=== PATIENT | male | born 1940 | race Caucasian/White ===

== ENCOUNTER 2019-01-14 14:24 | Observation (INO) | payer MEDICARE, OTHER ==
[2019-01-14] MEDS ORDERED: Sodium Chloride 0.9% 1000 ML 1,000 ML IV STA (14:31)
[2019-01-14] MEDS ORDERED: Sodium Chloride 0.9% 1000 ML 1,000 ML ONE (14:38)
--- NOTE | 2019-01-14 14:41 | ERPHSYRPT ---
- History of Present Illness Time Seen by Provider: 01/14/19 14:30 Historian: patient Exam Limitations: no limitations Patient Subjective Stated Complaint: Pt states "I have had diarrhea since monday and I went to [facility] and they told me to come over here." Triage Nursing Assessment: Pt presented alert and oriented X 3, skin pwd. Pt ambulates with an upright steady gait, able to speak in clear full sentences. PT in no apparent respiratory distress. Physician History: Patient has had 6-8 episodes of watery diarrhea for the past two days with 3 further episodes of diarrhea today. ppatient denies nausea vomiting, denies any recent antibiotic use, denies any recent travel, denies any suspicious consumption of foods or beverages that cause similar symptoms to other people, and denies any recent hospitalizations. Patient was referred to the emergency room from a local [facility] clinic due to having a drop in his blood pressure while having orthostatics performed. Timing/Duration: day(s) (2) Activities at Onset: none Quality: cramping Abdominal Pain Onset Location: other (no abdominal pain) Severity of Pain-Max: none Severity of Pain-Current: none Modifying Factors: Improves With: nothing Associated Symptoms: diarrhea, weakness (generalized), No back, No chest pain, No diaphoresis, No fever/chills, No fatigue, No headache, No heartburn, No loss of appetite, No nausea, No neck pain, No rash, No shortness of breath, No syncope, No testicular pain, No vomiting Previous symptoms: no prior history, no recent treatment Allergies/Adverse Reactions: No Known Drug Allergies Allergy (Verified 01/14/19 14:36) Home Medications: Atorvastatin Calcium [Lipitor] 20 mg PO DAILY 10/22/15 [History] Hx Tetanus, Diphtheria Vaccination/Date Given: Yes Hx Influenza Vaccination/Date Given: Yes Hx Pneumococcal Vaccination/Date Given: No Immunizations Up to Date: Yes - Review of Systems Constitutional: No Fever, No Chills Eyes: No Eye Pain, No Eye Redness Ears, Nose, & Throat: No Mouth Swelling, No Throat Pain, No Throat Swelling Respiratory: No Cough, No Dyspnea Cardiac: No Chest Pain, No Edema, No Syncope Abdominal/Gastrointestinal: Diarrhea, No Abdominal Pain, No Nausea, No Vomiting , No Hematemesis, No Hematochezia, No Melena Genitourinary Symptoms: No Dysuria, No Hematuria, No Urinary Retention, No Flank Pain Musculoskeletal: No Back Pain, No Neck Pain, No Myalgias Skin: No Rash Neurological: No Dizziness, No Focal Weakness, No Headache, No Parasthesia, No Sensory Changes, No Tremors Psychological: No Symptoms Endocrine: No Excessive Sweating Hematologic/Lymphatic: No Easy Bleeding, No Easy Bruising All Other Systems: Reviewed and Negative - Past Medical History Pertinent Past Medical History: Yes Cardiac History: Hypertension Other Medical History: hx colon ca - Past Surgical History Past Surgical History: Yes (colon CA) Gastrointestinal: Colon Resection - Social History Smoking Status: Never smoker Exposure to second hand smoke: No Drug Use: none Patient Lives Alone: No - Nursing Vital Signs Nursing Vital Signs: Initial Vital Signs Temperature 97.8 F 01/14/19 14:30 Pulse Rate 78 01/14/19 14:30 Respiratory Rate 16 01/14/19 14:30 Blood Pressure 136/76 01/14/19 14:30 O2 Sat by Pulse Oximetry 98 01/14/19 14:30 Pain Scale Pain Intensity 0 - Physical Exam General Appearance: no apparent distress, alert Eye Exam: PERRL/EOMI, eyes nml inspection, No scleral icterus, No pale conjunctivae Ears, Nose, Throat Exam: normal ENT inspection, pharynx normal, moist mucous membranes Neck Exam: normal inspection, non-tender, supple, full range of motion Respiratory Exam: normal breath sounds, lungs clear, airway intact, No respiratory distress, No diminished breath sounds, No accessory muscle use, No crackles/rales, No rhonchi, No wheezing Cardiovascular Exam: regular rate/rhythm, normal heart sounds, normal peripheral pulses, capillary refill <2 sec Gastrointestinal/Abdomen Exam: soft, normal bowel sounds, No tenderness, No mass , No guarding, No pulsatile mass, No rebound Back Exam: normal inspection, normal range of motion, No CVA tenderness, No vertebral tenderness Extremity Exam: normal inspection, normal range of motion, pelvis stable Neurologic Exam: alert, oriented x 3, cooperative, rn lactation consultant II-XII nml as tested, normal mood/affect, nml cerebellar function, sensation nml, No motor deficits Skin Exam: normal color, warm, dry SpO2 Interpretation: normal SpO2: 98 O2 Delivery: Room Air - Course Nursing assessment & vital signs reviewed: Yes Ordered Tests: Active Orders 24 hr Category Date Time Status IV Insertion STAT Care 12/09/19 14:30 Active NPO (ED) STAT Care 01/14/19 14:30 Active Orthostatic Vital Signs STAT Care 01/14/19 14:31 Active AMYLASE Stat Lab 01/14/19 14:50 Completed CBC W DIFF Stat Lab 01/14/19 14:50 Completed CMP Stat Lab 01/14/19 14:50 Completed LIPASE Stat Lab 01/14/19 14:50 Completed Lactic Acid Stat Lab 01/14/19 14:50 Completed MAG [MAGNESIUM] Stat Lab 01/14/19 14:50 Completed UA W/RFX UR CULTURE Stat Lab 01/14/19 16:31 Ordered Medication Summary Discontinued Medications Generic Name Dose Route Start Last Admin Trade Name Freq PRN Reason Stop Dose Admin Sodium Chloride 1,000 mls @ 999 mls/hr 01/14/19 14:31 01/14/19 15:42 Sodium Chloride 0.9% 1000 Ml IV 01/14/19 15:31 Infused .Q1H1M STA Infusion Sodium Chloride Confirm 01/14/19 14:38 Sodium Chloride 0.9% 1000 Ml Administered 01/14/19 14:39 Dose 1,000 mls @ ud .ROUTE .STK-MED ONE Lab/Rad Data: Laboratory Result Diagrams 01/14/19 14:50 01/14/19 14:50 Laboratory Results 01/14/19 01/14/19 01/14/19 Range/Units 14:50 14:50 14:50 WBC (4.0-10.5) K/mm3 RBC (4.1-5.6) M/mm3 Hgb (12.5-18.0) gm/dl Hct (42-50) % MCV (78-100) fl MCH (26-32) pg MCHC (32-36) g/dl RDW (11.5-14.0) % Plt Count (150-450) K/mm3 MPV (6-9.5) fl Gran % (36.0-66.0) % Eos # (Auto) (0-0.5) Absolute Lymphs (auto) (1.0-4.6) Absolute Monos (auto) (0.0-1.3) Lymphocytes % (24.0-44.0) % Monocytes % (0.0-12.0) % Eosinophils % (0.00-5.0) % Basophils % (0.0-0.4) % Absolute Granulocytes (1.4-6.9) Basophils # (0-0.4) Sodium 141 (137-145) mmol/L Potassium 4.1 (3.5-5.1) mmol/L Chloride 106 (98-107) mmol/L Carbon Dioxide 17 L (22-30) mmol/L Anion Gap 21.9 H (5-15) MEQ/L BUN 60 H (9-20) mg/dL Creatinine 3.09 H (0.66-1.25) mg/dL Estimated GFR 20.8 ML/MIN Glucose 138 H (74-106) mg/dL Lactic Acid 1.6 (0.4-2.0) Calcium 8.7 (8.4-10.2) mg/dL Magnesium 2.3 (1.6-2.3) mg/dL Total Bilirubin 0.50 (0.2-1.3) mg/dL AST 52 (17-59) U/L ALT 36 (0-50) U/L Alkaline Phosphatase 49 (38-126) U/L Serum Total Protein 8.8 H (6.3-8.2) g/dL Albumin 4.9 (3.5-5.0) g/dL Amylase 70 (30-110) U/L Lipase 102 (23-300) U/L 01/14/19 Range/Units 14:50 WBC 13.2 H (4.0-10.5) K/mm3 RBC 5.42 (4.1-5.6) M/mm3 Hgb 17.0 (12.5-18.0) gm/dl Hct 50.4 H (42-50) % MCV 93.0 (78-100) fl MCH 31.4 (26-32) pg MCHC 33.7 (32-36) g/dl RDW 14.2 H (11.5-14.0) % Plt Count 236 (150-450) K/mm3 MPV 9.8 H (6-9.5) fl Gran % 69.5 H (36.0-66.0) % Eos # (Auto) 0.05 (0-0.5) Absolute Lymphs (auto) 2.25 (1.0-4.6) Absolute Monos (auto) 1.69 H (0.0-1.3) Lymphocytes % 17.0 L (24.0-44.0) % Monocytes % 12.8 H (0.0-12.0) % Eosinophils % 0.4 (0.00-5.0) % Basophils % 0.3 (0.0-0.4) % Absolute Granulocytes 9.21 H (1.4-6.9) Basophils # 0.04 (0-0.4) Sodium (137-145) mmol/L Potassium (3.5-5.1) mmol/L Chloride (98-107) mmol/L Carbon Dioxide (22-30) mmol/L Anion Gap (5-15) MEQ/L BUN (9-20) mg/dL Creatinine (0.66-1.25) mg/dL Estimated GFR ML/MIN Glucose (74-106) mg/dL Lactic Acid (0.4-2.0) Calcium (8.4-10.2) mg/dL Magnesium (1.6-2.3) mg/dL Total Bilirubin (0.2-1.3) mg/dL AST (17-59) U/L ALT (0-50) U/L Alkaline Phosphatase (38-126) U/L Serum Total Protein (6.3-8.2) g/dL Albumin (3.5-5.0) g/dL Amylase (30-110) U/L Lipase (23-300) U/L - Progress Progress: improved Progress Note: 01/14/19 16:26 Patient feeling better after IV fluids. Patient has no pain on repeat abdominal examination. Discussed with : Lio (spoke with Dr Lee @ 16:[address] Lee accepted the patient for observation.) Counseled pt/family regarding: lab results, diagnosis, need for follow-up - Departure Departure Disposition: Observation (to [facility] telemetry) Clinical Impression: Acute renal insufficiency, Orthostatic hypotension Diarrhea Qualifiers: Diarrhea type: unspecified type Qualified Code(s): R19.7 - Diarrhea, unspecified Hypertension Qualifiers: Hypertension type: essential hypertension Qualified Code(s): I10 - Essential ( primary) hypertension Condition: Fair Critical Care Time: No Referrals: PUJA BRANTLEY [Primary Care Provider] -
[2019-01-14 15:01] LABS: Absolute Neutrophil Ct (ANC) 9.21 (1.4-6.9); BASOPHIL % 0.3 % (0.0-0.4); Basophil (Absolute #) 0.04 (0-0.4); Eosinophil % 0.4 % (0.00-5.0); Eosinophil (Absolute #) 0.05 (0-0.5); Hematocrit 50.4 % (42-50); Lymphocyte (Absolute #) 2.25 (1.0-4.6); Mean Corpuscular Hemoglobin 31.4 pg (26-32); Mean Corpuscular Hgb Concent. 33.7 g/dl (32-36); Mean Platelet Volume 9.8 fl (6-9.5); Monocyte (Absolute #) 1.69 (0.0-1.3); Monocytes % 12.8 % (0.0-12.0); Neutrophil % 69.5 % (36.0-66.0); Platelet Count 236 K/mm3 (150-450); Red Blood Count 5.42 M/mm3 (4.1-5.6); Red Cell Distribution Width 14.2 % (11.5-14.0); White Blood Count 13.2 K/mm3 (4.0-10.5)
[2019-01-14 15:19] LABS: ALBUMIN 4.9 g/dL (3.5-5.0); ANION GAP 21.9 MEQ/L (5-15); BILIRUBIN,TOTAL 0.5 mg/dL (0.2-1.3); Calcium 8.7 mg/dL (8.4-10.2); Creatinine 1 3.09 mg/dL (0.66-1.25); Potassium 4.1 mmol/L (3.5-5.1); Total Protein 8.8 g/dL (6.3-8.2)
[2019-01-14 16:50] LABS: Appearance CLOUDY (CLEAR); Bacteria RARE /HPF (NEGATIVE); Bilirubin NEGATIVE (NEGATIVE); Blood NEGATIVE Ery/ul (0-5); Epithelial Cells RARE /HPF (FEW); Glucose NEGATIVE (NEGATIVE); Hyaline Casts 26-50 /LPF (0-2); Ketones NEGATIVE (NEGATIVE); Leukocyte Esterase NEGATIVE (NEGATIVE); Mucus MANY /HPF (NEGATIVE); Nitrite NEGATIVE (NEGATIVE); Protein,Urine Dip 30 (Negative); RBC 0-2 /HPF (0-2); Specific Gravity 1.023 (1.005-1.025); Urobilinogen NEGATIVE mg/dL (0-1)
[2019-01-14] MEDS ORDERED: TYLENOL 325 MG PO PRN (17:29)
[2019-01-14] MEDS: Sodium Chloride 0.9% 1000 ML 1,000 ML IV SCH (19:42)
[2019-01-14] MEDS ORDERED: COREG 12.5 MG PO ONE (22:00)
[2019-01-14 22:44] LABS: Adenovirus F 40/41 NEGATIVE (NEGATIVE); Astrovirus NEGATIVE (NEGATIVE); C. Difficile Organism NEGATIVE (NEGATIVE); Campylobacter NEGATIVE (NEGATIVE); Cryptosporidium NEGATIVE (NEGATIVE); Cyclospora cayentanensis NEGATIVE (NEGATIVE); Entamoeaba histolytica NEGATIVE (NEGATIVE); Enteroaggregative E.coli NEGATIVE (NEGATIVE); Enteropathogenic E.coli NEGATIVE (NEGATIVE); Enterotoxigenic E.coli NEGATIVE (NEGATIVE); Giardia lamblia NEGATIVE (NEGATIVE); Norovirus GI/GII POSITIVE (NEGATIVE); Plesiomonas shigelloides NEGATIVE (NEGATIVE); Rotavirus A NEGATIVE (NEGATIVE); Salmonella NEGATIVE (NEGATIVE); Sapovirus NEGATIVE (NEGATIVE); Shiga-like toxin prod.E.coli NEGATIVE (NEGATIVE); Vibrio NEGATIVE (NEGATIVE); Vibrio cholerae NEGATIVE (NEGATIVE); Yersinia enterocolitica NEGATIVE (NEGATIVE)
[2019-01-14] MEDS: Pepcid 20 MG PO SCH (22:56)
[2019-01-15] MEDS: Sodium Chloride 0.9% 1000 ML 1,000 ML IV SCH ×4 (02:13→23:19)
[2019-01-15 05:30] LABS: Calcium 7.5 mg/dL (8.4-10.2); Creatinine 1 1.86 mg/dL (0.66-1.25); Potassium 3.5 mmol/L (3.5-5.1)
--- NOTE | 2019-01-15 08:40 | PCM.HP ---
History of Present Illness - Chief Complaint Chief Complaint: Acute Renal Insufficiency, Orthostatic Hypotension, Diarrhea History of Present Illness: is a 78 year old male pt of Dr. Wills in [place] with hx HTN who was admitted through ER with diarrhea and dehydration. He became ill about 3d ago, having stools 6-8x/d. Denies fever or vomiting. He went to and was orthostatic so was sent to ER. Was found to have acute renal failure (no hx renal issues that he is aware of) and dehydration so was admitted for IV fluids. He denies bloody stools. did have some black stools but says he took Kaopectate. The color has since cleared. Yesterday he had about 6 stools, he thinks less than he was having. His appetite was poor but has returned. He was not urinating at home but has had 2 good urination here recently. - Review of Systems Abdominal/Gastrointestinal: Diarrhea, Appetite Changes Psychological: No Anxiety, No Depression, No Suicidal Ideations All Other Systems: Reviewed and Negative Medications & Allergies Home Medications: Home Medication List Atorvastatin Calcium [Lipitor] 20 mg PO HS 10/22/15 [History Confirmed 01/14/19] Amlodipine Besylate 5 mg [Norvasc 5 mg] 5 mg PO DAILY 01/14/19 [History Confirmed 01/14/19] Carvedilol 12.5 mg PO BREAKFAST 01/14/19 [History Confirmed 01/14/19] Carvedilol 25 mg PO HS 01/14/19 [History Confirmed 01/14/19] Cholecalciferol (Vitamin D3) [Vitamin D3] 50,000 unit PO WEEKLY 01/14/19 [ History Confirmed 01/14/19] Fenofibrate Nanocrystallized [Fenofibrate] 145 mg PO DAILY 01/14/19 [History Confirmed 01/14/19] Irbesartan 300 mg PO DAILY 01/14/19 [History Confirmed 01/14/19] Levothyroxine Sodium 50 Mcg [Synthroid 50 Mcg] 50 mcg PO 0600 01/14/19 [ History Confirmed 01/14/19] Allergies/Adverse Reactions: Allergies Allergy/AdvReac Type Severity Reaction Status Date / Time No Known Drug Allergies Allergy Verified 01/14/19 14:36 - Past Medical History Past Medical History: Yes Cardiac History: Hypertension Comment: hx colon ca - Past Surgical History Past Surgical History: Yes (colon CA) GI Surgical History: Colon Resection - Social History Smoking Status: Never smoker Exposure to second hand smoke: No Alcohol: None Drug Use: none - Physical Exam Vital Signs: Vital Signs - 24 hr Temp Pulse Resp BP Pulse Ox 01/15/19 04:00 98.6 F 65 18 116/56 95 01/15/19 00:00 98.2 F 80 20 128/72 93 L 01/14/19 20:00 98 F 79 18 133/62 94 L 01/14/19 17:29 97.6 F 77 18 164/71 96 01/14/19 16:51 98.6 F 72 16 149/70 96 01/14/19 16:38 98 01/14/19 15:52 73 18 133/62 98 01/14/19 15:23 72 16 137/67 97 01/14/19 14:30 97.8 F 78 16 136/76 98 General Appearance: no apparent distress, alert Neurologic Exam: oriented x 3, cooperative Eye Exam: eyes nml inspection Ears, Nose, Throat Exam: moist mucous membranes Neck Exam: normal inspection Respiratory Exam: normal breath sounds, lungs clear, No crackles/rales, No rhonchi, No wheezing Cardiovascular Exam: regular rate/rhythm, normal heart sounds, No murmur Gastrointestinal/Abdomen Exam: soft, normal bowel sounds, No tenderness, No distention, No mass, No guarding, No rebound Back Exam: normal inspection, No rash Extremity Exam: normal inspection, No pedal edema, No swelling Skin Exam: normal color, warm, dry, No rash Results - Labs Lab/Micro Results: Lab Results-Last 24 Hours 01/14/19 01/14/19 01/14/19 Range/Units 14:50 14:50 14:50 WBC 13.2 H (4.0-10.5) K/mm3 RBC 5.42 (4.1-5.6) M/mm3 Hgb 17.0 (12.5-18.0) gm/dl Hct 50.4 H (42-50) % MCV 93.0 (78-100) fl MCH 31.4 (26-32) pg MCHC 33.7 (32-36) g/dl RDW 14.2 H (11.5-14.0) % Plt Count 236 (150-450) K/mm3 MPV 9.8 H (6-9.5) fl Gran % 69.5 H (36.0-66.0) % Eos # (Auto) 0.05 (0-0.5) Absolute Lymphs (auto) 2.25 (1.0-4.6) Absolute Monos (auto) 1.69 H (0.0-1.3) Lymphocytes % 17.0 L (24.0-44.0) % Monocytes % 12.8 H (0.0-12.0) % Eosinophils % 0.4 (0.00-5.0) % Basophils % 0.3 (0.0-0.4) % Absolute Granulocytes 9.21 H (1.4-6.9) Basophils # 0.04 (0-0.4) Sodium 141 (137-145) mmol/L Potassium 4.1 (3.5-5.1) mmol/L Chloride 106 (98-107) mmol/L Carbon Dioxide 17 L (22-30) mmol/L Anion Gap 21.9 H (5-15) MEQ/L BUN 60 H (9-20) mg/dL Creatinine 3.09 H (0.66-1.25) mg/dL Estimated GFR 20.8 ML/MIN Glucose 138 H (74-106) mg/dL Lactic Acid 1.6 (0.4-2.0) Calcium 8.7 (8.4-10.2) mg/dL Magnesium (1.6-2.3) mg/dL Total Bilirubin 0.50 (0.2-1.3) mg/dL AST 52 (17-59) U/L ALT 36 (0-50) U/L Alkaline Phosphatase 49 (38-126) U/L Serum Total Protein 8.8 H (6.3-8.2) g/dL Albumin 4.9 (3.5-5.0) g/dL Amylase 70 (30-110) U/L Lipase 102 (23-300) U/L Urine Color (YELLOW) Urine Appearance (CLEAR) Urine pH (5-6) Ur Specific [place] (1.005-1.025) Urine Protein (Negative) Urine Ketones (NEGATIVE) Urine Blood (0-5) Derek/ul Urine Nitrite (NEGATIVE) Urine Bilirubin (NEGATIVE) Urine Urobilinogen (0-1) mg/dL Ur Leukocyte Esterase (NEGATIVE) Urine WBC (Auto) (0-5) /HPF Urine RBC (Auto) (0-2) /HPF U Hyaline Cast (Auto) (0-2) /LPF U Epithel Cells (Auto) (FEW) /HPF Urine Bacteria (Auto) (NEGATIVE) /HPF Urine Mucus (Auto) (NEGATIVE) /HPF Urine Culture Reflexed (NO) Urine Glucose (NEGATIVE) mg/dL Stl C. cayetanensis PCR (NEGATIVE) Stl Adenov F 40/41 PCR (NEGATIVE) Stool Astrovirus (PCR) (NEGATIVE) Stool Cryptosporidium PCR (NEGATIVE) Stool EPEC (PCR) (NEGATIVE) Stool EAEC (PCR) (NEGATIVE) Stl E. histolytica PCR (NEGATIVE) Stl P. shigelloides PCR (NEGATIVE) Stool Sapovirus (PCR) (NEGATIVE) St Y.enterocolitica PCR (NEGATIVE) Stool Vibrio (PCR) (NEGATIVE) Stl Vibrio cholerae PCR (NEGATIVE) Stl Norovirus GI/GII PCR (NEGATIVE) Campylobacter (PCR) (NEGATIVE) C. difficile (PCR) (NEGATIVE) Enterotoxigenic E. coli (NEGATIVE) E.coli Shiga Toxins (NEGATIVE) Giardia lamblia (NEGATIVE) Rotavirus A (PCR) (NEGATIVE) Salmonella (PCR) (NEGATIVE) Shigella (PCR) (NEGATIVE) 01/14/19 01/14/19 01/14/19 Range/Units 14:50 16:31 20:12 WBC (4.0-10.5) K/mm3 RBC (4.1-5.6) M/mm3 Hgb (12.5-18.0) gm/dl Hct (42-50) % MCV (78-100) fl MCH (26-32) pg MCHC (32-36) g/dl RDW (11.5-14.0) % Plt Count (150-450) K/mm3 MPV (6-9.5) fl Gran % (36.0-66.0) % Eos # (Auto) (0-0.5) Absolute Lymphs (auto) (1.0-4.6) Absolute Monos (auto) (0.0-1.3) Lymphocytes % (24.0-44.0) % Monocytes % (0.0-12.0) % Eosinophils % (0.00-5.0) % Basophils % (0.0-0.4) % Absolute Granulocytes (1.4-6.9) Basophils # (0-0.4) Sodium (137-145) mmol/L Potassium (3.5-5.1) mmol/L Chloride (98-107) mmol/L Carbon Dioxide (22-30) mmol/L Anion Gap (5-15) MEQ/L BUN (9-20) mg/dL Creatinine (0.66-1.25) mg/dL Estimated GFR ML/MIN Glucose (74-106) mg/dL Lactic Acid (0.4-2.0) Calcium (8.4-10.2) mg/dL Magnesium 2.3 (1.6-2.3) mg/dL Total Bilirubin (0.2-1.3) mg/dL AST (17-59) U/L ALT (0-50) U/L Alkaline Phosphatase (38-126) U/L Serum Total Protein (6.3-8.2) g/dL Albumin (3.5-5.0) g/dL Amylase (30-110) U/L Lipase (23-300) U/L Urine Color YELLOW (YELLOW) Urine Appearance CLOUDY (CLEAR) Urine pH 5.0 (5-6) Ur Specific [place] 1.023 (1.005-1.025) Urine Protein 30 (Negative) Urine Ketones NEGATIVE (NEGATIVE) Urine Blood NEGATIVE (0-5) Derek/ul Urine Nitrite NEGATIVE (NEGATIVE) Urine Bilirubin NEGATIVE (NEGATIVE) Urine Urobilinogen NEGATIVE (0-1) mg/dL Ur Leukocyte Esterase NEGATIVE (NEGATIVE) Urine WBC (Auto) 6-10 (0-5) /HPF Urine RBC (Auto) 0-2 (0-2) /HPF U Hyaline Cast (Auto) 26-50 (0-2) /LPF U Epithel Cells (Auto) RARE (FEW) /HPF Urine Bacteria (Auto) RARE (NEGATIVE) /HPF Urine Mucus (Auto) MANY (NEGATIVE) /HPF Urine Culture Reflexed NO (NO) Urine Glucose NEGATIVE (NEGATIVE) mg/dL Stl C. cayetanensis PCR NEGATIVE (NEGATIVE) Stl Adenov F 40/41 PCR NEGATIVE (NEGATIVE) Stool Astrovirus (PCR) NEGATIVE (NEGATIVE) Stool Cryptosporidium PCR NEGATIVE (NEGATIVE) Stool EPEC (PCR) NEGATIVE (NEGATIVE) Stool EAEC (PCR) NEGATIVE (NEGATIVE) Stl E. histolytica PCR NEGATIVE (NEGATIVE) Stl P. shigelloides PCR NEGATIVE (NEGATIVE) Stool Sapovirus (PCR) NEGATIVE (NEGATIVE) St Y.enterocolitica PCR NEGATIVE (NEGATIVE) Stool Vibrio (PCR) NEGATIVE (NEGATIVE) Stl Vibrio cholerae PCR NEGATIVE (NEGATIVE) Stl Norovirus GI/GII PCR POSITIVE A (NEGATIVE) Campylobacter (PCR) NEGATIVE (NEGATIVE) C. difficile (PCR) NEGATIVE (NEGATIVE) Enterotoxigenic E. coli NEGATIVE (NEGATIVE) E.coli Shiga Toxins NEGATIVE (NEGATIVE) Giardia lamblia NEGATIVE (NEGATIVE) Rotavirus A (PCR) NEGATIVE (NEGATIVE) Salmonella (PCR) NEGATIVE (NEGATIVE) Shigella (PCR) NEGATIVE (NEGATIVE) 01/15/19 Range/Units 05:17 WBC (4.0-10.5) K/mm3 RBC (4.1-5.6) M/mm3 Hgb (12.5-18.0) gm/dl Hct (42-50) % MCV (78-100) fl MCH (26-32) pg MCHC (32-36) g/dl RDW (11.5-14.0) % Plt Count (150-450) K/mm3 MPV (6-9.5) fl Gran % (36.0-66.0) % Eos # (Auto) (0-0.5) Absolute Lymphs (auto) (1.0-4.6) Absolute Monos (auto) (0.0-1.3) Lymphocytes % (24.0-44.0) % Monocytes % (0.0-12.0) % Eosinophils % (0.00-5.0) % Basophils % (0.0-0.4) % Absolute Granulocytes (1.4-6.9) Basophils # (0-0.4) Sodium 140 (137-145) mmol/L Potassium 3.5 (3.5-5.1) mmol/L Chloride 112 H (98-107) mmol/L Carbon Dioxide 17 L (22-30) mmol/L Anion Gap 15.0 (5-15) MEQ/L BUN 57 H (9-20) mg/dL Creatinine 1.86 H (0.66-1.25) mg/dL Estimated GFR 37.3 ML/MIN Glucose 110 H (74-106) mg/dL Lactic Acid (0.4-2.0) Calcium 7.5 L (8.4-10.2) mg/dL Magnesium (1.6-2.3) mg/dL Total Bilirubin (0.2-1.3) mg/dL AST (17-59) U/L ALT (0-50) U/L Alkaline Phosphatase (38-126) U/L Serum Total Protein (6.3-8.2) g/dL Albumin (3.5-5.0) g/dL Amylase (30-110) U/L Lipase (23-300) U/L Urine Color (YELLOW) Urine Appearance (CLEAR) Urine pH (5-6) Ur Specific [place] (1.005-1.025) Urine Protein (Negative) Urine Ketones (NEGATIVE) Urine Blood (0-5) Derek/ul Urine Nitrite (NEGATIVE) Urine Bilirubin (NEGATIVE) Urine Urobilinogen (0-1) mg/dL Ur Leukocyte Esterase (NEGATIVE) Urine WBC (Auto) (0-5) /HPF Urine RBC (Auto) (0-2) /HPF U Hyaline Cast (Auto) (0-2) /LPF U Epithel Cells (Auto) (FEW) /HPF Urine Bacteria (Auto) (NEGATIVE) /HPF Urine Mucus (Auto) (NEGATIVE) /HPF Urine Culture Reflexed (NO) Urine Glucose (NEGATIVE) mg/dL Stl C. cayetanensis PCR (NEGATIVE) Stl Adenov F 40/41 PCR (NEGATIVE) Stool Astrovirus (PCR) (NEGATIVE) Stool Cryptosporidium PCR (NEGATIVE) Stool EPEC (PCR) (NEGATIVE) Stool EAEC (PCR) (NEGATIVE) Stl E. histolytica PCR (NEGATIVE) Stl P. shigelloides PCR (NEGATIVE) Stool Sapovirus (PCR) (NEGATIVE) St Y.enterocolitica PCR (NEGATIVE) Stool Vibrio (PCR) (NEGATIVE) Stl Vibrio cholerae PCR (NEGATIVE) Stl Norovirus GI/GII PCR (NEGATIVE) Campylobacter (PCR) (NEGATIVE) C. difficile (PCR) (NEGATIVE) Enterotoxigenic E. coli (NEGATIVE) E.coli Shiga Toxins (NEGATIVE) Giardia lamblia (NEGATIVE) Rotavirus A (PCR) (NEGATIVE) Salmonella (PCR) (NEGATIVE) Shigella (PCR) (NEGATIVE) - Other Procedures and Tests Respiratory Therapy 01/14/19 17:29 EKG Assessment/Plan (1) Norovirus Current Visit: Yes Status: Acute Assessment & Plan: Supportive tx. Seems to have some improvement since admission. Code(s): A08.11 - ACUTE GASTROENTEROPATHY DUE TO NORWALK AGENT (2) UTI (urinary tract infection) Current Visit: Yes Status: Acute Qualifiers: Urinary tract infection type: acute cystitis Assessment & Plan: Increased WBC in urine; cx pending. Will go ahead and tx with rocephin. Code(s): N39.0 - URINARY TRACT INFECTION, SITE NOT SPECIFIED (3) Acute renal insufficiency Current Visit: Yes Status: Acute Assessment & Plan: Improved; initial eGFR was 20.8; up to 37.3 this morning. CO2 is still low at 17. IV fluids at 150 cc/hr. Needs to stay and recheck labs in a.m. Code(s): N28.9 - DISORDER OF KIDNEY AND URETER, UNSPECIFIED (4) Hypertension Current Visit: Yes Status: Chronic Qualifiers: Hypertension type: essential hypertension Qualified Code(s): I10 - Essential (primary) hypertension Code(s): I10 - ESSENTIAL (PRIMARY) HYPERTENSION
[2019-01-15] MEDS ORDERED: ENOXAPARIN SODIUM SQ SCH (10:00)
[2019-01-15] MEDS: ROCEPHIN 1 Gm-D5w 50 ml Bag** 1 G/50 ML IVPB IV SCH (11:00)
[2019-01-15] MEDS: Tricor 145 MG PO SCH (11:01)
[2019-01-15] MEDS: COREG 12.5 MG PO SCH (11:01)
[2019-01-15] MEDS: Avapro 150 MG PO SCH (11:01)
[2019-01-15] MEDS: NORVASC 5 MG PO SCH (11:02)
[2019-01-15] MEDS: Pepcid 20 MG PO SCH ×2 (11:02→21:45)
[2019-01-15] MEDS: ENOXAPARIN SODIUM SQ SCH (11:04)
[2019-01-15] MEDS: SYNTHROID 50 MCG PO SCH (11:04)
[2019-01-15] MEDS ORDERED: ZOCOR 20MG PO SCH (22:00)
[2019-01-15] MEDS ORDERED: COREG 12.5 MG PO SCH (22:00)
[2019-01-16 04:52] LABS: Hematocrit 39.3 % (42-50); Hemoglobin 13.3 gm/dl (12.5-18.0); Mean Cell Volume 92.7 fl (78-100); Mean Corpuscular Hemoglobin 31.4 pg (26-32); Mean Corpuscular Hgb Concent. 33.8 g/dl (32-36); Mean Platelet Volume 9.4 fl (6-9.5); Platelet Count 202 K/mm3 (150-450); Red Blood Count 4.24 M/mm3 (4.1-5.6); Red Cell Distribution Width 13.8 % (11.5-14.0)
[2019-01-16 04:56] LABS: White Blood Count 8.6 K/mm3 (4.0-10.5)
[2019-01-16 05:04] LABS: ANION GAP 10.3 MEQ/L (5-15); Calcium 7.4 mg/dL (8.4-10.2); Creatinine 1 1.29 mg/dL (0.66-1.25); Potassium 3.8 mmol/L (3.5-5.1)
[2019-01-16] MEDS: SYNTHROID 50 MCG PO SCH (05:53)
[2019-01-16] MEDS: Sodium Chloride 0.9% 1000 ML 1,000 ML IV SCH (05:53)
[2019-01-16] MEDS ORDERED: CARVEDILOL 12.5 MG PO SCH (08:00)
--- NOTE | 2019-01-16 08:22 | PCM.DS ---
Discharge Summary Date of Admission: 01/14/19 17:03 Admitting Physician: SP CALDERÓN Primary Care Provider: PUJA BRANTLEY Allergies Allergies No Known Drug Allergies Allergy (Verified 01/14/19 14:36) Hospital Summary - Hospital Course Hospital Course: patient was admitted with diarrhea, orthostasis and decreased urine output. had acute renal failure from dehydration secondary to norovirus, tolerating po now and renal function has normalized with hydration since admission. overall he is doing much better and needs to get home to his who is unable to drive etc. - Vitals & Intake/Output Vital Signs: Vital Signs Temperature 98.3 F 01/16/19 04:15 Pulse Rate 62 01/16/19 04:15 Respiratory Rate 17 01/16/19 04:15 Blood Pressure 139/76 01/16/19 04:15 O2 Sat by Pulse Oximetry 95 01/16/19 04:15 Intake & Output: Intake & Output 01/13/19 01/14/19 01/15/19 01/16/19 11:59 11:59 11:59 11:59 Intake Total 2224 5734 Output Total 500 Balance 1724 5734 Weight 90.9 kg 92.9 kg - Lab Result Diagrams: 01/16/19 04:30 01/16/19 04:30 Lab Results-Last 24 Hrs: Lab Results-Last 24 Hours 01/16/19 01/16/19 Range/Units 04:30 04:30 WBC 8.6 (4.0-10.5) K/mm3 RBC 4.24 (4.1-5.6) M/mm3 Hgb 13.3 D (12.5-18.0) gm/dl Hct 39.3 L (42-50) % MCV 92.7 (78-100) fl MCH 31.4 (26-32) pg MCHC 33.8 (32-36) g/dl RDW 13.8 (11.5-14.0) % Plt Count 202 (150-450) K/mm3 MPV 9.4 (6-9.5) fl Sodium 141 (137-145) mmol/L Potassium 3.8 (3.5-5.1) mmol/L Chloride 119 H (98-107) mmol/L Carbon Dioxide 16 L* (22-30) mmol/L Anion Gap 10.3 (5-15) MEQ/L BUN 37 H (9-20) mg/dL Creatinine 1.29 H (0.66-1.25) mg/dL Estimated GFR 57.0 ML/MIN Glucose 98 (74-106) mg/dL Calcium 7.4 L (8.4-10.2) mg/dL - Procedures and Test Procedures and Tests throughout Hospitalization: Therapy Orders & Screens 01/14/19 17:29 EKG Comment: Discharge Exam General Appearance: no apparent distress, alert Neurologic Exam: alert, oriented x 3, cooperative Respiratory Exam: normal breath sounds, lungs clear, No respiratory distress Cardiovascular Exam: regular rate/rhythm, normal heart sounds Gastrointestinal/Abdomen Exam: soft, No tenderness, No mass Extremity Exam: normal inspection, normal range of motion Skin Exam: normal color, warm, dry Final Diagnosis/Problem List - Final Discharge Diagnosis/Problem (1) Acute renal insufficiency Current Visit: Yes Status: Acute Assessment & Plan: resolved with hydration, advised to push fluids at home. Code(s): N28.9 - DISORDER OF KIDNEY AND URETER, UNSPECIFIED (2) Diarrhea Current Visit: Yes Status: Acute Code(s): R19.7 - DIARRHEA, UNSPECIFIED (3) Norovirus Current Visit: Yes Status: Acute Code(s): A08.11 - ACUTE GASTROENTEROPATHY DUE TO NORWALK AGENT - Discharge Disposition: Home, Self-Care Condition: Good Prescriptions: Continue Atorvastatin Calcium [Lipitor] 20 mg PO HS Levothyroxine Sodium 50 Mcg [Synthroid 50 Mcg] 50 mcg PO 0600 Amlodipine Besylate 5 mg [Norvasc 5 mg] 5 mg PO DAILY Irbesartan 300 mg PO DAILY Fenofibrate Nanocrystallized [Fenofibrate] 145 mg PO DAILY Cholecalciferol (Vitamin D3) [Vitamin D3] 50,000 unit PO WEEKLY Carvedilol 25 mg PO HS Carvedilol 12.5 mg PO BREAKFAST Follow up with: SP CALDERÓN MD [ACTIVE STAFF] - 01/25/19 1:15 pm
[2019-01-16 08:29] VITALS: BP 130/60; PULSE 54; O2SAT 97
[2019-01-16] MEDS: COREG 12.5 MG PO SCH (08:53)
[2019-01-16] MEDS: Avapro 150 MG PO SCH (08:53)
[2019-01-16] MEDS: NORVASC 5 MG PO SCH (08:53)
[2019-01-16] MEDS: Tricor 145 MG PO SCH (08:53)
[2019-01-16] MEDS: Pepcid 20 MG PO SCH (08:54)
[2019-01-16] MEDS: ROCEPHIN 1 Gm-D5w 50 ml Bag** 1 G/50 ML IVPB IV SCH (09:12)
[2019-01-16] MEDS: ENOXAPARIN SODIUM SQ SCH (09:12)
== END 2019-01-16 09:15 | disposition home or self-care (01) ==
LOC: ED 14:24 → MED SURG 17:03
PROVIDERS: ADMIT Family Medicine; ATTEND Family Medicine
DX: A08.11 Acute gastroenteropathy due to Norwalk agent (principal); N17.9 Acute kidney failure, unspecified; E86.0 Dehydration; I10 Essential (primary) hypertension; I95.1 Orthostatic hypotension; R19.7 Diarrhea, unspecified; Z79.899 Other long term (current) drug therapy; Z85.038 Personal history of other malignant neoplasm of large intestine
CPT/HCPCS: 36415; 80048; 80053; 81001; 82150; 83605; 83690; 83735; 85025; 85027; 87086; 87507; 96360; 99285; J0696; J1650; A9270-GY; G0378

== ENCOUNTER 2020-06-23 07:54 | Day surgery (SDC) | payer MEDICARE ==
[~2020-06-23 07:54] MED LIST: Ak-Dilate OPHTHALMIC*** 1.065 ML, Cyclogyl 1% OPHTH SOL 5 ML 1.065 ML, GATIFLOXACIN 0.5... OP ONE; BETADINE 5% OPHTHALMIC 30 ML OP ONE; Lactated Ringers 1,000 ML IV SCH; NON-FORMULARY ITEM OP ONE; TETRACAINE 0.5% STERI-UNIT SOL OP ONE; cefUROXime sodium 0.005 GM in Sodium Chloride Flush 30 ML*** 0.5 ML IJ SCH
[2020-06-23] MEDS ORDERED: Lactated Ringers 1,000 ML IV ONE (08:18)
[2020-06-23] MEDS ORDERED: ACETAZOLAMIDE 250 MG TABLET PO ONE (09:00)
[2020-06-23] MEDS ORDERED: Zofran 4 MG/2 ML VIAL IV PRN (09:00)
[2020-06-23] MEDS ORDERED: DIPRIVAN 200 MG/20 ML IV ONE ×2 (09:48→09:56)
[2020-06-23] MEDS ORDERED: LIDOCAINE HCL 1% 50 MG/5 ML VL PF IJ ONE (10:00)
[2020-06-23] MEDS ORDERED: Epinephrine Preservative Free 1 MG/ML INTRAOP ONE (10:00)
[2020-06-23 10:56] VITALS: BP 146/62; PULSE 76; O2SAT 97
== END 2020-06-23 11:00 | disposition home or self-care (01) ==
LOC: SDC 07:54
PROVIDERS: ATTEND Ophthalmology
DX: H25.812 Combined forms of age-related cataract, left eye (principal); I10 Essential (primary) hypertension; E78.00 Pure hypercholesterolemia, unspecified; E07.9 Disorder of thyroid, unspecified; Z79.899 Other long term (current) drug therapy
CPT/HCPCS: 99100; C1780; J0171; J2001; J2704; A9270-GY

== ENCOUNTER 2022-01-12 17:37 | Emergency (ER) | payer MEDICARE ==
[2022-01-12] MEDS ORDERED: Sodium Chloride 0.9% 1000 ML 1,000 ML IV SCH (18:00)
[2022-01-12 18:38] LABS: Absolute Neutrophil Ct (ANC) 2.49 x10^3/uL (1.4-6.9); Basophil (Absolute #) 0.04 x10^3/uL (0-0.4); Eosinophil (Absolute #) 0.11 x10^3/uL (0-0.5); Hematocrit 39.6 % (42-50); Hemoglobin 13.5 g/dL (12.5-18.0); Lymphocyte (Absolute #) 2.29 x10^3/uL (1.0-4.6); Lymphocytes % 41.1 % (24.0-44.0); Mean Cell Volume 89.8 fL (78-100); Mean Corpuscular Hemoglobin 30.6 pg (26-32); Mean Corpuscular Hgb Concent. 34.1 g/dL (32-36); Mean Platelet Volume 8.5 fL (7.5-11.0); Monocyte (Absolute #) 0.62 x10^3/uL (0.0-1.3); Monocytes % 11.1 % (0.0-12.0); Neutrophil % 44.7 % (36.0-66.0); Platelet Count 204 x10^3/uL (150-450); Red Blood Count 4.41 x10^6/uL (4.1-5.6); Red Cell Distribution Width 12.4 % (11.5-14.0); White Blood Count 5.6 x10^3/uL (4.0-10.5)
[2022-01-12 18:49] LABS: ALBUMIN 4.3 g/dL (3.5-5.0); ALKALINE PHOSPHATASE 83 U/L (38-126); ANION GAP 10.5 MEQ/L (5-15); BLOOD UREA NITROGEN 11 mg/dL (9-20); CHLORIDE 96 mmol/L (98-107); Calcium 8.6 mg/dL (8.4-10.2); Carbon Dioxide 27 mmol/L (22-30); Creatinine 1 0.89 mg/dL (0.66-1.25); EST GLOMERULAR FILTRATION RATE > 60.0 ML/MIN; Glucose 104 mg/dL (74-106); SGOT/AST 58 U/L (17-59); SGPT/ALT 40 U/L (0-50); SODIUM 130 mmol/L (137-145); Total Protein 7.4 g/dL (6.3-8.2)
[2022-01-12 19:13] LABS: INFLUENZA A NEGATIVE (NEGATIVE); INFLUENZA B NEGATIVE (NEGATIVE); RESPIRATORY SYNCTIAL VIRUS NEGATIVE (Negative); SARS-CoV-2 Xpert Express NEGATIVE (NEGATIVE)
--- NOTE | 2022-01-12 19:26 | ERPHSYRPT ---
- History of Present Illness Time Seen by Provider: 01/12/22 17:50 Source: patient Exam Limitations: no limitations Patient Subjective Stated Complaint: congestion, intermittent SOB, pain in back "at the bottom of my left lung" Triage Nursing Assessment: pt to ED c/o congestion, intermittent SOB, pain in back "at the bottom of my left lung." pt states pain did not start until yesterday, rates 2/10, very dull but "enough to get checked out." denies exposure to any illnesses to his knowledge. cough only produced by nasal drainage. heart sounds clear, faint crackles in bases. Physician History: Patient is an 81-year-old white male who presents with a 2 to 3-day history of a dry cough he has had minimal shortness of breath but some pain in the left lower back. She rates he rates the pain 2 of 10 he is concerned that he might be getting a pneumonia. Timing/Duration: day(s) (3) Cough Quality/Degree: dry cough Possible Cause: occasional episodes Associated Symptoms: cough, nasal drainage, No fever, No chills Allergies/Adverse Reactions: No Known Drug Allergies Allergy (Verified 01/12/22 17:42) Home Medications: Atorvastatin Calcium [Lipitor] 20 mg PO HS 10/22/15 [History] Amlodipine Besylate 5 mg [Norvasc 5 mg] 5 mg PO DAILY 01/14/19 [History] Irbesartan 300 mg PO DAILY 01/14/19 [History] Levothyroxine Sodium 50 Mcg [Synthroid 50 Mcg] 50 mcg PO 0600 01/14/19 [History] Hx Tetanus, Diphtheria Vaccination/Date Given: Yes Hx Influenza Vaccination/Date Given: Yes Hx Pneumococcal Vaccination/Date Given: Yes Immunizations Up to Date: Yes Travel Risk - International Travel Have you traveled outside of the country in past 3 weeks: No - Coronavirus Screening Are you exhibiting any of the following symptoms?: Yes Symptoms: Cough: New Onset, Shortness of Breath Close contact with a COVID-19 positive Pt in past 14-21 Days: No - Vaccine Status Have you recieved a Covid-19 vaccination: Yes Training Administrator: Moderna - Vaccination Dates Date of 2cond Vaccination (if applicable): 2020 - Review of Systems Constitutional: No Fever, No Chills Eyes: No Symptoms Ears, Nose, & Throat: Nose Discharge, Sinus Drainage Respiratory: Cough, Dyspnea Cardiac: No Chest Pain, No Edema, No Syncope Abdominal/Gastrointestinal: No Abdominal Pain, No Nausea, No Vomiting, No Diarrhea Genitourinary Symptoms: No Dysuria Musculoskeletal: No Back Pain, No Neck Pain Skin: No Rash Neurological: No Dizziness, No Focal Weakness, No Sensory Changes Psychological: No Symptoms Endocrine: No Symptoms All Other Systems: Reviewed and Negative - Past Medical History Pertinent Past Medical History: Yes Neurological History: No Pertinent History ENT History: Cataracts Cardiac History: High Cholesterol, Hypertension Respiratory History: No Pertinent History Endocrine Medical History: Hypothyroidism Musculoskeletal History: No Pertinent History GI Medical History: Colorectal Cancer History: No Pertinent History Psycho-Social History: No Pertinent History Male Reproductive Disorders: No Pertinent History Other Medical History: hx colon ca - Past Surgical History Past Surgical History: Yes (colon CA) Neuro Surgical History: No Pertinent History Cardiac: No Pertinent History Respiratory: No Pertinent History Gastrointestinal: Appendectomy, Cholecystectomy, Colon Resection Genitourinary: No Pertinent History Musculoskeletal: No Pertinent History Male Surgical History: No Pertinent History Other Surgical History: port placement and removal - Social History Smoking Status: Never smoker Exposure to second hand smoke: No Drug Use: none Patient Lives Alone: Yes - Nursing Vital Signs Nursing Vital Signs: Initial Vital Signs Temperature 97.8 F 01/12/22 17:43 Pulse Rate 79 01/12/22 17:43 Respiratory Rate 20 01/12/22 17:43 Blood Pressure 142/60 01/12/22 17:43 O2 Sat by Pulse Oximetry 98 01/12/22 17:43 Pain Scale Pain Intensity 2 - Physical Exam General Appearance: mild distress, alert Eye Exam: PERRL/EOMI, eyes nml inspection Ears, Nose, Throat Exam: normal ENT inspection, TMs normal, pharynx normal, moist mucous membranes Neck Exam: normal inspection, non-tender, supple, full range of motion Respiratory Exam: normal breath sounds, lungs clear, No respiratory distress Cardiovascular Exam: regular rate/rhythm, normal heart sounds Gastrointestinal/Abdomen Exam: soft, No tenderness Back Exam: normal inspection, No CVA tenderness, No vertebral tenderness Extremity Exam: normal inspection, normal range of motion Neurologic Exam: alert, oriented x 3, cooperative, normal mood/affect, sensation nml, No motor deficits Skin Exam: normal color, warm, dry, No rash Lymphatic Exam: No adenopathy SpO2: 98 - Course Nursing assessment & vital signs reviewed: Yes - Radiology Exams Chest X-ray Interpretation: Interpreted by me, Negative Ordered Tests: Active Orders 24 hr Category Date Time Status CHEST 1 VIEW (PORTABLE) Stat Exams 01/12/22 17:50 Taken BLOOD CULTURE Stat Lab 01/12/22 18:25 Received CBC W DIFF Stat Lab 01/12/22 17:50 Completed CMP Stat Lab 01/12/22 18:25 Completed Lactic Acid Stat Lab 01/12/22 17:50 Completed PROCALCITONIN Stat Lab 01/12/22 18:25 Completed UA W/RFX CULTURE Stat Lab 01/12/22 Ordered Medication Summary Generic Name Dose Route Start Last Admin Trade Name Freq PRN Reason Stop Dose Admin Sodium Chloride 1,000 mls @ 50 mls/hr 01/12/22 18:00 Sodium Chloride 0.9% 1000 Ml IV 02/11/22 17:59 .Q20H MEKHI Lab/Rad Data: Laboratory Result Diagrams 01/12/22 17:50 01/12/22 18:25 Laboratory Results 01/12/22 01/12/22 01/12/22 Range/Units 18:25 18:25 17:50 WBC (4.0-10.5) x10^3/uL RBC (4.1-5.6) x10^6/uL Hgb (12.5-18.0) g/dL Hct (42-50) % MCV (78-100) fL MCH (26-32) pg MCHC (32-36) g/dL RDW (11.5-14.0) % Plt Count (150-450) x10^3/uL MPV (7.5-11.0) fL Gran % (36.0-66.0) % Immature Gran % (Auto) (0.00-0.4) % Nucleat RBC Rel Count (0.00-0.1) % Eos # (Auto) (0-0.5) x10^3/uL Immature Gran # (Auto) (0.00-0.03) x10^3u/L Absolute Lymphs (auto) (1.0-4.6) x10^3/uL Absolute Monos (auto) (0.0-1.3) x10^3/uL Absolute Nucleated RBC (0.00-0.01) x10^3u/L Lymphocytes % (24.0-44.0) % Monocytes % (0.0-12.0) % Eosinophils % (0.00-5.0) % Basophils % (0.0-0.4) % Absolute Granulocytes (1.4-6.9) x10^3/uL Basophils # (0-0.4) x10^3/uL Sodium 130 L (137-145) mmol/L Potassium 4.0 (3.5-5.1) mmol/L Chloride 96 L (98-107) mmol/L Carbon Dioxide 27 (22-30) mmol/L Anion Gap 10.5 (5-15) MEQ/L BUN 11 (9-20) mg/dL Creatinine 0.89 (0.66-1.25) mg/dL Estimated GFR > 60.0 ML/MIN Glucose 104 (74-106) mg/dL Lactic Acid 1.2 (0.4-2.0) Calcium 8.6 (8.4-10.2) mg/dL Total Bilirubin 0.80 (0.2-1.3) mg/dL AST 58 (17-59) U/L ALT 40 (0-50) U/L Alkaline Phosphatase 83 (38-126) U/L Serum Total Protein 7.4 (6.3-8.2) g/dL Albumin 4.3 (3.5-5.0) g/dL Procalcitonin 0.083 H (0.030-0.080) ng/mL 01/12/22 Range/Units 17:50 WBC 5.6 (4.0-10.5) x10^3/uL RBC 4.41 (4.1-5.6) x10^6/uL Hgb 13.5 (12.5-18.0) g/dL Hct 39.6 L (42-50) % MCV 89.8 (78-100) fL MCH 30.6 (26-32) pg MCHC 34.1 (32-36) g/dL RDW 12.4 (11.5-14.0) % Plt Count 204 (150-450) x10^3/uL MPV 8.5 (7.5-11.0) fL Gran % 44.7 (36.0-66.0) % Immature Gran % (Auto) 0.4 (0.00-0.4) % Nucleat RBC Rel Count 0.0 (0.00-0.1) % Eos # (Auto) 0.11 (0-0.5) x10^3/uL Immature Gran # (Auto) 0.02 (0.00-0.03) x10^3u/L Absolute Lymphs (auto) 2.29 (1.0-4.6) x10^3/uL Absolute Monos (auto) 0.62 (0.0-1.3) x10^3/uL Absolute Nucleated RBC 0.00 (0.00-0.01) x10^3u/L Lymphocytes % 41.1 (24.0-44.0) % Monocytes % 11.1 (0.0-12.0) % Eosinophils % 2.0 (0.00-5.0) % Basophils % 0.7 (0.0-0.4) % Absolute Granulocytes 2.49 (1.4-6.9) x10^3/uL Basophils # 0.04 (0-0.4) x10^3/uL Sodium (137-145) mmol/L Potassium (3.5-5.1) mmol/L Chloride (98-107) mmol/L Carbon Dioxide (22-30) mmol/L Anion Gap (5-15) MEQ/L BUN (9-20) mg/dL Creatinine (0.66-1.25) mg/dL Estimated GFR ML/MIN Glucose (74-106) mg/dL Lactic Acid (0.4-2.0) Calcium (8.4-10.2) mg/dL Total Bilirubin (0.2-1.3) mg/dL AST (17-59) U/L ALT (0-50) U/L Alkaline Phosphatase (38-126) U/L Serum Total Protein (6.3-8.2) g/dL Albumin (3.5-5.0) g/dL Procalcitonin (0.030-0.080) ng/mL - Progress Progress: unchanged Air Movement: good Blood Culture(s) Obtained: No Antibiotics given: Yes - Departure Departure Disposition: Home Clinical Impression: Bronchitis Condition: Stable Critical Care Time: No Referrals: SP CALDERÓN MD [Primary Care Provider] - Follow up/PCP as directed Instructions: Bronchitis, Adult ED Prescriptions: Cephalexin Mh 500 mg [Keflex 500 mg] 500 mg PO QID 10 Days #40 cap MDD 4
[2022-01-12 19:41] VITALS: BP 136/72; PULSE 72
[2022-01-12 19:42] VITALS: O2SAT 98
--- NOTE | 2022-01-13 08:36 | XRAY ---
Indication: Cough. Comparison: None Portable chest inflated and clear. Heart not enlarged. Bony thorax intact with mild osteopenia and degenerative changes. Impression: Nonacute chest with chronic bony findings.
== END 2022-01-12 19:41 | disposition home or self-care (01) ==
LOC: ED 17:37
DX: J40 Bronchitis, not specified as acute or chronic (principal); R05.1 Acute cough; M54.50 Low back pain, unspecified; E78.5 Hyperlipidemia, unspecified; I10 Essential (primary) hypertension; Z79.899 Other long term (current) drug therapy
CPT/HCPCS: 0241U; 36415; 71045; 80053; 83605; 84145; 85025; 87040; 99283

== ENCOUNTER 2023-01-15 11:33 | Inpatient (IN) | payer MEDICARE ==
[2023-01-15 12:12] LABS: Hematocrit 39.8 % (42-50); Hemoglobin 13.8 g/dL (12.5-18.0); Mean Cell Volume 89.8 fL (78-100); Mean Corpuscular Hemoglobin 31.2 pg (26-32); Mean Corpuscular Hgb Concent. 34.7 g/dL (32-36); Mean Platelet Volume 8.5 fL (7.5-11.0); Platelet Count 144 x10^3/uL (150-450); Red Blood Count 4.43 x10^6/uL (4.1-5.6); Red Cell Distribution Width 12.3 % (11.5-14.0); White Blood Count 7.3 x10^3/uL (4.0-10.5)
[2023-01-15] MEDS ORDERED: Sodium Chloride 0.9% 500 ML 500 ML IV ONE ×2 (12:21→12:22)
[2023-01-15 12:34] LABS: ALBUMIN 3.9 g/dL (3.5-5.0); ANION GAP 15.3 MEQ/L (5-15); BILIRUBIN,TOTAL 0.9 mg/dL (0.2-1.3); Calcium 8.9 mg/dL (8.4-10.2); Creatinine 1 1.25 mg/dL (0.66-1.25); EST GLOMERULAR FILTRATION RATE 56.8 ML/MIN; Potassium 4.8 mmol/L (3.5-5.1); Total Protein 7.5 g/dL (6.3-8.2)
[2023-01-15 12:51] LABS: INFLUENZA A NEGATIVE (NEGATIVE); INFLUENZA B NEGATIVE (NEGATIVE); RESPIRATORY SYNCTIAL VIRUS NEGATIVE (NEGATIVE); SARS-CoV-2 Xpert Express NEGATIVE (NEGATIVE)
[2023-01-15 13:04] LABS: ATYPICAL LYMPHS 13 %; Eosinophil 1 % (0.00-3.0); Lymphocytes 24 % (24-44); Monocyte 13 % (0.0-12.0); Neutrophils 49 % (36.-66.); Total Cells Counted 100
[2023-01-15 13:05] LABS: Platelet Estimate NORMAL (NORMAL)
--- NOTE | 2023-01-15 15:14 | ERPHSYRPT ---
- History of Present Illness Time Seen by Provider: 01/15/23 11:36 Source: patient Exam Limitations: no limitations Patient Subjective Stated Complaint: Pt reports he was having diarrhea for a couple of days so saw his pcp, trish hannon, who ordered blood work and had patie nt take immodium and drink gatorade. Pt reports he took immodium yesterday and since then he has not had any diarrhea but reports he is feeling worse and weaker. Pt reports he has been drinking gatorade, denies any vomiting. Also started experiencing shortness of breath the last day that is worsening. Triage Nursing Assessment: Pt alert and oriented x3. Respirations easy, nonlabored, O2 99% on room air. Skin warm/pale/dry. Accompanied by family member. Lungs clear anteriorly and posteriorly throughout. Physician History: 82 years old male with history of hypertension, hyperlipidemia, hypothyroidism presented in the ER with chief complaint of generalized weakness fatigue tiredness and mild increasing shortness of breath with exertion for the last couple of days. Patient reports he was having loose stool/diarrhea for 2 to 3 days, was seen outpatient and has taken Imodium, diarrhea has improved but getting weakness and tiredness despite trying to drink more and more. Complaining of mild abdominal discomfort but no nausea or vomiting. Has minimal nonproductive cough. Difficulty breathing more with exertion and a feeling of overall weakness/worn out with a few steps. No fever or chills reported. Allergies/Adverse Reactions: No Known Drug Allergies Allergy (Verified 01/15/23 11:35) Home Medications: Atorvastatin Calcium [Lipitor] 20 mg PO HS 10/22/15 [History] Amlodipine Besylate 5 mg [Norvasc 5 mg] 5 mg PO DAILY 01/14/19 [History] Irbesartan 300 mg PO DAILY 01/14/19 [History] Levothyroxine Sodium 50 Mcg [Synthroid 50 Mcg] 50 mcg PO 0600 01/14/19 [History] Hx Tetanus, Diphtheria Vaccination/Date Given: Yes Hx Influenza Vaccination/Date Given: Yes Hx Pneumococcal Vaccination/Date Given: Yes Travel Risk - International Travel Have you traveled outside of the country in past 3 weeks: No - Coronavirus Screening Are you exhibiting any of the following symptoms?: Yes Symptoms: Vomiting/Diarrhea Close contact with a COVID-19 positive Pt in past 14-21 Days: No - Vaccine Status Have you recieved a Covid-19 vaccination: Yes Clinical Social Work Therapist: Moderna - Vaccination Dates Date of 2cond Vaccination (if applicable): 2020 - Review of Systems Constitutional: Fatigue, Weakness Eyes: No Symptoms Ears, Nose, & Throat: No Symptoms Respiratory: Dyspnea Cardiac: No Symptoms Abdominal/Gastrointestinal: Abdominal Pain Genitourinary Symptoms: No Symptoms Musculoskeletal: Arthralgias Skin: No Symptoms Neurological: No Symptoms Endocrine: No Symptoms Hematologic/Lymphatic: No Symptoms Immunological/Allergic: No Symptoms - Past Medical History Pertinent Past Medical History: Yes Neurological History: No Pertinent History ENT History: Cataracts Cardiac History: High Cholesterol, Hypertension Respiratory History: No Pertinent History Endocrine Medical History: Hypothyroidism Musculoskeletal History: No Pertinent History GI Medical History: Colorectal Cancer History: No Pertinent History Psycho-Social History: No Pertinent History Male Reproductive Disorders: No Pertinent History Other Medical History: hx colon ca - Past Surgical History Past Surgical History: Yes (colon CA) Neuro Surgical History: No Pertinent History Cardiac: No Pertinent History Respiratory: No Pertinent History Gastrointestinal: Appendectomy, Cholecystectomy, Colon Resection Genitourinary: No Pertinent History Musculoskeletal: No Pertinent History Male Surgical History: No Pertinent History Other Surgical History: port placement and removal - Social History Smoking Status: Never smoker Exposure to second hand smoke: No Drug Use: none Patient Lives Alone: No - Nursing Vital Signs Nursing Vital Signs: Initial Vital Signs Temperature 97.5 F 01/15/23 11:35 Pulse Rate 85 01/15/23 11:35 Respiratory Rate 22 01/15/23 11:35 Blood Pressure 147/70 01/15/23 11:35 O2 Sat by Pulse Oximetry 98 01/15/23 11:35 Pain Scale Pain Intensity 4 - Physical Exam General Appearance: no apparent distress, alert Eye Exam: PERRL/EOMI Ears, Nose, Throat Exam: normal ENT inspection, TMs normal, pharynx normal, moist mucous membranes Neck Exam: normal inspection, non-tender, supple, full range of motion Respiratory Exam: normal breath sounds, lungs clear Cardiovascular Exam: regular rate/rhythm, normal heart sounds Gastrointestinal/Abdomen Exam: soft, normal bowel sounds, No tenderness Back Exam: normal inspection, normal range of motion Extremity Exam: normal inspection, normal range of motion Neurologic Exam: alert, oriented x 3, cooperative, parts facilitator II-XII nml as tested SpO2 Interpretation: normal SpO2: 97 O2 Delivery: Room Air - Course EKG Interpreted by Me: RATE (29), Sinus Rhythm, Left Bloomer Deviation, NORMAL INTERVALS, Q-wave Ordered Tests: Active Orders 24 hr Category Date Time Status Field Marketing Team Leader STAT Care 01/15/23 11:54 Active EKG-ER Only STAT Care 01/15/23 11:52 Active IV Insertion STAT Care 01/15/23 11:52 Active Pulse Oximetry (ED) STAT Care 01/15/23 11:52 Active ABDOMEN AND PELVIS W CONTRAST [CT] Stat Exams 01/15/23 13:16 Completed CHEST 1 VIEW (PORTABLE) Stat Exams 01/15/23 11:54 Taken CHEST WITH CONTRAST [CT] Stat Exams 01/15/23 13:16 Completed CBC W DIFF Stat Lab 01/15/23 12:05 Completed CMP Stat Lab 01/15/23 12:05 Completed Lactic Acid Stat Lab 01/15/23 12:14 Completed Manual Differential NC Stat Lab 01/15/23 12:05 Completed NT PRO BNPII Stat Lab 01/15/23 12:05 Completed TROPONIN Q4H Lab 01/15/23 12:05 Completed TROPONIN Q4H Lab 01/15/23 16:00 Ordered TROPONIN Q4H Lab 01/15/23 20:00 Ordered UA W/RFX UR CULTURE Stat Lab 01/15/23 15:42 Ordered Transfer Order Routine Transfer 01/15/23 Ordered Medication Summary Discontinued Medications Generic Name Dose Route Start Last Admin Trade Name Freq PRN Reason Stop Dose Admin Sodium Chloride 500 mls @ 500 mls/hr 01/15/23 12:21 01/15/23 13:23 Sodium Chloride 0.9% 500 Ml IV 01/15/23 13:20 Infused .Q1H ONE Infusion Sodium Chloride Confirm 01/15/23 12:22 Sodium Chloride 0.9% 500 Ml Administered 01/15/23 12:23 Dose 500 mls @ ud IV .STK-MED ONE Lab/Rad Data: Laboratory Result Diagrams 01/15/23 12:05 01/15/23 12:05 Laboratory Results 01/15/23 01/15/23 01/15/23 Range/Units 12:14 12:05 12:05 WBC (4.0-10.5) x10^3/uL RBC (4.1-5.6) x10^6/uL Hgb (12.5-18.0) g/dL Hct (42-50) % MCV (78-100) fL MCH (26-32) pg MCHC (32-36) g/dL RDW (11.5-14.0) % Plt Count (150-450) x10^3/uL MPV (7.5-11.0) fL Segmented Neutrophils (36.-66.) % Lymphocytes (Manual) (24-44) % Monocytes (Manual) (0.0-12.0) % Eosinophils (Manual) (0.00-3.0) % Atypical Lymphocytes % Platelet Estimate (NORMAL) RBC Morphology Sodium (137-145) mmol/L Potassium (3.5-5.1) mmol/L Chloride (98-107) mmol/L Carbon Dioxide (22-30) mmol/L Anion Gap (5-15) MEQ/L BUN (9-20) mg/dL Creatinine (0.66-1.25) mg/dL Estimated GFR ML/MIN Glucose (74-106) mg/dL Lactic Acid 2.0 (0.4-2.0) Calcium (8.4-10.2) mg/dL Total Bilirubin (0.2-1.3) mg/dL AST (17-59) U/L ALT (0-50) U/L Alkaline Phosphatase (38-126) U/L Troponin I < 0.012 (0.000-0.034) ng/mL NT-Pro-B Natriuret Pep (<300) pg/mL Serum Total Protein (6.3-8.2) g/dL Albumin (3.5-5.0) g/dL Influenza Type A Ag NEGATIVE (NEGATIVE) Influenza Type B Ag NEGATIVE (NEGATIVE) RSV (PCR) NEGATIVE (NEGATIVE) SARS-CoV-2 (PCR) NEGATIVE (NEGATIVE) 01/15/23 01/15/23 Range/Units 12:05 12:05 WBC 7.3 (4.0-10.5) x10^3/uL RBC 4.43 (4.1-5.6) x10^6/uL Hgb 13.8 (12.5-18.0) g/dL Hct 39.8 L (42-50) % MCV 89.8 (78-100) fL MCH 31.2 (26-32) pg MCHC 34.7 (32-36) g/dL RDW 12.3 (11.5-14.0) % Plt Count 144 L (150-450) x10^3/uL MPV 8.5 (7.5-11.0) fL Segmented Neutrophils 49 (36.-66.) % Lymphocytes (Manual) 24 (24-44) % Monocytes (Manual) 13 H (0.0-12.0) % Eosinophils (Manual) 1 (0.00-3.0) % Atypical Lymphocytes 13 % Platelet Estimate NORMAL (NORMAL) RBC Morphology NORMAL Sodium 126 L (137-145) mmol/L Potassium 4.8 (3.5-5.1) mmol/L Chloride 96 L (98-107) mmol/L Carbon Dioxide 20 L (22-30) mmol/L Anion Gap 15.3 H (5-15) MEQ/L BUN 17 (9-20) mg/dL Creatinine 1.25 (0.66-1.25) mg/dL Estimated GFR 56.8 ML/MIN Glucose 107 H (74-106) mg/dL Lactic Acid (0.4-2.0) Calcium 8.9 (8.4-10.2) mg/dL Total Bilirubin 0.90 (0.2-1.3) mg/dL AST 49 (17-59) U/L ALT 30 (0-50) U/L Alkaline Phosphatase 75 (38-126) U/L Troponin I (0.000-0.034) ng/mL NT-Pro-B Natriuret Pep 701 (<300) pg/mL Serum Total Protein 7.5 (6.3-8.2) g/dL Albumin 3.9 (3.5-5.0) g/dL Influenza Type A Ag (NEGATIVE) Influenza Type B Ag (NEGATIVE) RSV (PCR) (NEGATIVE) SARS-CoV-2 (PCR) (NEGATIVE) - Progress Progress: improved Progress Note: 01/15/23 15:13 82 years old male with history of hypertension, hyperlipidemia, hypothyroidism presented in the ER with chief complaint of generalized weakness fatigue tiredness and mild increasing shortness of breath with exertion for the last couple of days. Patient reports he was having loose stool/diarrhea for 2 to 3 days, was seen outpatient and has taken Imodium, diarrhea has improved but getting weakness and tiredness despite trying to drink more and more. Complaining of mild abdominal discomfort but no nausea or vomiting. Has minimal nonproductive cough. Difficulty breathing more with exertion and a feeling of overall weakness/worn out with a few steps. No fever or chills reported. Patient is not in any distress, EKG is sinus rhythm with no acute ST elevations. Given gentle hydration. Normal white count and chemistries showed sodium of 126, couple of days ago it was 128 but his baseline is around 138. Obtained CT chest abdomen pelvis which are negative for PE, pneumonia or any other acute intra-abdominal pelvic findings. Initial troponins are negative. He is being admitted for observation to slowly bring up his sodium level. I have shared the results of workup with patient and family and plan of admission which they understand and agree. I have discussed with .: Patient is being admitted for observation. Discussed with DrCarleen: Other () Counseled pt/family regarding: diagnosis, need for follow-up, rad results Medical Desision Making - Independent Historian Additional History obtained from: Child - Discussion of managment Care discussed with:: hospitalist Reviewed:: Test results Agreed on:: Treatment plan Will see patient: in hospital - Diagnostic Testing Diagnostic test were ordered, analyzed, and reviewed by me: Yes Radiological Interpretation: Interpreted by me, Reviewed by me, Teleradiologist Report - Risk of complications The pt has a high risk of morbidity or mortality based on: Decision regarding hospitilization or escalation of hosp level of care - Departure Departure Disposition: Observation Clinical Impression: Hyponatremia, General weakness Condition: Stable Critical Care Time: No Referrals: SP CALDERÓN MD [Primary Care Provider] - Follow up/PCP as directed
--- NOTE | 2023-01-15 15:32 | XRAY ---
CLINICAL HISTORY:DIARRHEA COMPARISON:None TECHNIQUE:Contiguous, multislice, post intravenous contrast [100 cc Isovue-370] CT scan of the abdomen and pelvis was performed in the axial plane with multiplanar reconstructions FINDINGS: The liver is enlarged in size and measures about 20 cm in the craniocaudal axis showing mild decreased attenuation consistent with fatty infiltration. A few tiny calcific foci in both lobes of the liver represent healed granulomas. No intrahepatic biliary dilatation. Normal-sized portal vein and CBD. The gallbladder is surgically removed as evidenced by surgical clips at the gallbladder bed. The pancreas appears normal in size, as well as normal contour and attenuation. Probable early fatty replacement at the pancreatic head. No peripancreatic collections. Average-sized spleen showing homogeneous attenuation with no focal mass lesion. No adrenal mass. Both kidneys appear normal in size and show normal postcontrast enhancement and excretion. No calculus or hydronephrosis in either kidney. The cyst at the lower pole of the right kidney measures about 24 X 20 mm. Minimal Perinephric fat stranding around both kidneys is probably a physiological change. No ascites. Multiple enlarged berta hepatis and gastrohepatic LNs the largest mesaures about 3 x 1.5 cm. Atherosclerotic calcifications of the abdominal aorta and iliac vessels. Prior surgical intervention was seen at the ascending colon (right hemicolectomy) without significant bowel wall thickening, or bowel dilatation. Appendix is not visualized. Noncomplicated colonic diverticulosis mainly involves the sigmoid and descending colon without evidence of diverticulitis. An adequately filled urinary bladder appears free from intraluminal stones, mass, or diverticular bleeding. Average-sized prostate. The rectum is showing normal appearances. Multilevel spondylodegenerative changes in the visualized spine show degenerative disc disease mainly at the L4-L5 level. No acute osseous abnormality or suspicious bony lesions. Osteopenic bones. Visualized sections of the lower chest are detailed in CT chest study. IMPRESSION: Mild hepatomegaly, and fatty infiltration of the liver. No significant bowel wall thickening, or bowel dilatation. Clear operative bed. Multiple enlarged berta hepatis and gastrohepatic LNs, follow up is advised. No acute intra-abdominal abnormality. Right renal cyst [Bosniak type I]. Noncomplicated colonic diverticulosis mainly involves the sigmoid and descending colon without evidence of diverticulitis. The rest of the findings as detailed above. Electronically Signed by: Citlalli Garcia MD. (01/15/2023 15:28:32 EST)
--- NOTE | 2023-01-15 15:52 | XRAY ---
CLINICAL HISTORY:sob , PE? COMPARISON:None TECHNIQUE:Contiguous, multislice, post intravenous contrast [100 cc Isovue-370] CT scan of the Chest was performed in the axial plane in mediastinal and lung windows with multiplanar reconstructions FINDINGS: The main pulmonary segment, right and left main branches show normal diameter and homogeneous contrast enhancement with no evidence of pulmonary embolism or thrombosis. Normal contrast opacification of proximal and visualized distal branches of lobar pulmonary arteries. No pulmonary infarcts or pleural collection. Fibroatelectatic changes in both lower lobes. No suspicious pulmonary masses or cavitary lesions. No evidence of pulmonary infiltrations. Cardiac size is within normal limits. No pericardial effusion Atherosclerotic calcifications of the aortic arch noted. The chest wall has no cystic or solid masses. Small hilar and mediastinal lymph nodes. Calcified right hilar and mediastinal lymph nodes seen in the pretracheal region. Multilevel spondylodegenerative changes in the visualized spine. Visualized sections of the upper abdomen are detailed in CT Abdominal study. IMPRESSION: No evidence of pulmonary embolism. Fibroatelectatic changes in both lower lobes. The rest of the details as mentioned. Electronically Signed by: Citlalli Garcia MD. (01/15/2023 15:48:59 EST)
[2023-01-15 17:30] LABS: Appearance Clear (Clear); Bacteria None Seen /HPF (None Seen); Bilirubin Negative (Negative); Blood Negative (Negative); Epithelial Cells None Seen /HPF (None Seen); Glucose, Urine Negative (Negative); Hyaline Casts NONE SEEN /LPF (0-2); Ketones Negative (Negative); Leukocyte Esterase Negative (Negative); Nitrite Negative (Negative); Protein,Urine Dip Negative (Negative); RBC 0-2 /HPF (0-5); Specific Gravity >=1.030 (1.005-1.030); Urobilinogen 0.2 mg/dL (0.2); WBC 0-2 /HPF (0-5)
[2023-01-15 17:33] LABS: ADD URINE CULTURE? NO (NO)
--- NOTE | 2023-01-15 18:04 | PCM.HP ---
History of Present Illness - Chief Complaint Chief Complaint: Hyponatremia Date: 01/15/23 (1800) History of Present Illness: is a 82 year old male who is admitted with complaints of weakness. He has been feeling poorly for several weeks. He developed diarrhea about 3 days ago. He saw his PCP and was told he was dehydrated and had low sodium and was told to restrict fluids. The patient had increased weakness today and was unable to walk. He developed dyspnea with exertion and came to ER. He denies abdominal pain. No fever or cough. He has mild abdominal pain and continued diarrhea but no nausea or vomiting. No sore throat. No urinary complaints. PMH includes HTN, HLD, Hypothyroid and Cancer of colon. - Review of Systems Constitutional: Fatigue, Weakness, No Fever, No Chills Eyes: No Symptoms Ears, Nose, & Throat: No Symptoms Respiratory: Short Of Breath, No Cough, No Orthopnea, No Wheezing Cardiac: No Symptoms, No Chest Pain, No Edema, No Palpitations, No Syncope Abdominal/Gastrointestinal: Abdominal Pain, Diarrhea, No Nausea, No Vomiting Genitourinary Symptoms: No Symptoms, No Dysuria, No Frequency, No Hematuria Musculoskeletal: No Symptoms Skin: No Symptoms Neurological: No Symptoms Psychological: No Symptoms Endocrine: No Symptoms Hematologic/Lymphatic: No Symptoms Immunological/Allergic: No Symptoms All Other Systems: Reviewed and Negative Medications & Allergies Home Medications: Home Medication List Atorvastatin Calcium [Lipitor] 20 mg PO DAILY 10/22/15 [History Confirmed 01/15/23] Amlodipine Besylate 5 mg [Norvasc 5 mg] 5 mg PO DAILY 01/14/19 [History Confirmed 01/15/23] Irbesartan 300 mg PO DAILY 01/14/19 [History Confirmed 01/15/23] Levothyroxine Sodium 50 Mcg [Synthroid 50 Mcg] 50 mcg PO 0700 01/14/19 [History Confirmed 01/15/23] Trazodone HCl 50 mg [Desyrel 50 mg] 50 mg PO HS 01/15/23 [History Confirmed 01/15/23] Allergies/Adverse Reactions: Allergies Allergy/AdvReac Type Severity Reaction Status Date / Time No Known Drug Allergies Allergy Verified 01/15/23 11:35 - Past Medical History Past Medical History: Yes Neurological History: No Pertinent History ENT History: Cataracts Cardiac History: High Cholesterol, Hypertension Respiratory History: No Pertinent History Endocrine Medical History: Hypothyroidism Musculoskelatal History: No Pertinent History GI Medical History: Colorectal Cancer History: No Pertinent History Pyscho-Social History: No Pertinent History Male Reproductive Disorders: Prostate Problems Comment: hx colon ca - Past Surgical History Past Surgical History: Yes (colon CA) Neuro Surgical History: No Pertinent History Cardiac History: No Pertinent History Respiratory Surgery: No Pertinent History GI Surgical History: Appendectomy, Cholecystectomy, Colon Resection Genitourinary Surgical Hx: No Pertinent History Musculskeletal Surgical Hx: No Pertinent History Male Surgical History: No Pertinent History Other Surgical History: port placement and removal - Social History Smoking Status: Never smoker Exposure to second hand smoke: No Alcohol: None Drug Use: none - Physical Exam Vital Signs: Vital Signs - 24 hr Temp Pulse Resp BP BP Pulse Ox 01/15/23 17:00 77 16 97 01/15/23 16:55 97.5 F 78 16 164/75 94 L 01/15/23 16:35 97.5 F 78 16 164/75 94 L 01/15/23 16:17 97 01/15/23 14:04 79 13 144/71 97 01/15/23 11:55 97 01/15/23 11:35 97.5 F 85 22 147/70 98 General Appearance: mild distress Neurologic Exam: alert, oriented x 3, cooperative Eye Exam: PERRL/EOMI, eyes nml inspection Ears, Nose, Throat Exam: normal ENT inspection Neck Exam: normal inspection, non-tender, supple, full range of motion Respiratory Exam: normal breath sounds, lungs clear, No chest tenderness Cardiovascular Exam: regular rate/rhythm, normal heart sounds, normal peripheral pulses Gastrointestinal/Abdomen Exam: soft, normal bowel sounds, tenderness, No distention, No mass, No guarding Male Genitalia Exam: normal genitalia Back Exam: normal inspection Extremity Exam: normal inspection Skin Exam: normal color, warm, dry Lymphatic Exam: No adenopathy Results - Labs Lab/Micro Results: Lab Results-Last 24 Hours 01/15/23 01/15/23 01/15/23 Range/Units 12:05 12:05 12:05 WBC 7.3 (4.0-10.5) x10^3/uL RBC 4.43 (4.1-5.6) x10^6/uL Hgb 13.8 (12.5-18.0) g/dL Hct 39.8 L (42-50) % MCV 89.8 (78-100) fL MCH 31.2 (26-32) pg MCHC 34.7 (32-36) g/dL RDW 12.3 (11.5-14.0) % Plt Count 144 L (150-450) x10^3/uL MPV 8.5 (7.5-11.0) fL Segmented Neutrophils 49 (36.-66.) % Lymphocytes (Manual) 24 (24-44) % Monocytes (Manual) 13 H (0.0-12.0) % Eosinophils (Manual) 1 (0.00-3.0) % Atypical Lymphocytes 13 % Platelet Estimate NORMAL (NORMAL) RBC Morphology NORMAL Sodium 126 L (137-145) mmol/L Potassium 4.8 (3.5-5.1) mmol/L Chloride 96 L (98-107) mmol/L Carbon Dioxide 20 L (22-30) mmol/L Anion Gap 15.3 H (5-15) MEQ/L BUN 17 (9-20) mg/dL Creatinine 1.25 (0.66-1.25) mg/dL Estimated GFR 56.8 ML/MIN Glucose 107 H (74-106) mg/dL Lactic Acid (0.4-2.0) Calcium 8.9 (8.4-10.2) mg/dL Total Bilirubin 0.90 (0.2-1.3) mg/dL AST 49 (17-59) U/L ALT 30 (0-50) U/L Alkaline Phosphatase 75 (38-126) U/L Troponin I < 0.012 (0.000-0.034) ng/mL NT-Pro-B Natriuret Pep 701 (<300) pg/mL Serum Total Protein 7.5 (6.3-8.2) g/dL Albumin 3.9 (3.5-5.0) g/dL Urine Color (Yellow) Urine Appearance (Clear) Urine pH (4.6-8.0) Ur Specific [place] (1.005-1.030) Urine Protein (Negative) Urine Glucose (UA) (Negative) mg/dL Urine Ketones (Negative) Urine Blood (Negative) Urine Nitrite (Negative) Urine Bilirubin (Negative) Urine Urobilinogen (0.2) mg/dL Ur Leukocyte Esterase (Negative) U Hyaline Cast (Auto) (0-2) /LPF Urine Microscopic RBC (0-5) /HPF Urine Microscopic WBC (0-5) /HPF Ur Epithelial Cells (None Seen) /HPF Urine Bacteria (None Seen) /HPF Urine Culture Reflexed (NO) Influenza Type A Ag (NEGATIVE) Influenza Type B Ag (NEGATIVE) RSV (PCR) (NEGATIVE) SARS-CoV-2 (PCR) (NEGATIVE) 01/15/23 01/15/23 01/15/23 Range/Units 12:05 12:14 15:42 WBC (4.0-10.5) x10^3/uL RBC (4.1-5.6) x10^6/uL Hgb (12.5-18.0) g/dL Hct (42-50) % MCV (78-100) fL MCH (26-32) pg MCHC (32-36) g/dL RDW (11.5-14.0) % Plt Count (150-450) x10^3/uL MPV (7.5-11.0) fL Segmented Neutrophils (36.-66.) % Lymphocytes (Manual) (24-44) % Monocytes (Manual) (0.0-12.0) % Eosinophils (Manual) (0.00-3.0) % Atypical Lymphocytes % Platelet Estimate (NORMAL) RBC Morphology Sodium (137-145) mmol/L Potassium (3.5-5.1) mmol/L Chloride (98-107) mmol/L Carbon Dioxide (22-30) mmol/L Anion Gap (5-15) MEQ/L BUN (9-20) mg/dL Creatinine (0.66-1.25) mg/dL Estimated GFR ML/MIN Glucose (74-106) mg/dL Lactic Acid 2.0 (0.4-2.0) Calcium (8.4-10.2) mg/dL Total Bilirubin (0.2-1.3) mg/dL AST (17-59) U/L ALT (0-50) U/L Alkaline Phosphatase (38-126) U/L Troponin I (0.000-0.034) ng/mL NT-Pro-B Natriuret Pep (<300) pg/mL Serum Total Protein (6.3-8.2) g/dL Albumin (3.5-5.0) g/dL Urine Color Yellow (Yellow) Urine Appearance Clear (Clear) Urine pH 5.0 (4.6-8.0) Ur Specific [place] >=1.030 A (1.005-1.030) Urine Protein Negative (Negative) Urine Glucose (UA) Negative (Negative) mg/dL Urine Ketones Negative (Negative) Urine Blood Negative (Negative) Urine Nitrite Negative (Negative) Urine Bilirubin Negative (Negative) Urine Urobilinogen 0.2 (0.2) mg/dL Ur Leukocyte Esterase Negative (Negative) U Hyaline Cast (Auto) NONE SEEN (0-2) /LPF Urine Microscopic RBC 0-2 (0-5) /HPF Urine Microscopic WBC 0-2 (0-5) /HPF Ur Epithelial Cells None Seen (None Seen) /HPF Urine Bacteria None Seen (None Seen) /HPF Urine Culture Reflexed NO (NO) Influenza Type A Ag NEGATIVE (NEGATIVE) Influenza Type B Ag NEGATIVE (NEGATIVE) RSV (PCR) NEGATIVE (NEGATIVE) SARS-CoV-2 (PCR) NEGATIVE (NEGATIVE) 01/15/23 Range/Units 16:05 WBC (4.0-10.5) x10^3/uL RBC (4.1-5.6) x10^6/uL Hgb (12.5-18.0) g/dL Hct (42-50) % MCV (78-100) fL MCH (26-32) pg MCHC (32-36) g/dL RDW (11.5-14.0) % Plt Count (150-450) x10^3/uL MPV (7.5-11.0) fL Segmented Neutrophils (36.-66.) % Lymphocytes (Manual) (24-44) % Monocytes (Manual) (0.0-12.0) % Eosinophils (Manual) (0.00-3.0) % Atypical Lymphocytes % Platelet Estimate (NORMAL) RBC Morphology Sodium (137-145) mmol/L Potassium (3.5-5.1) mmol/L Chloride (98-107) mmol/L Carbon Dioxide (22-30) mmol/L Anion Gap (5-15) MEQ/L BUN (9-20) mg/dL Creatinine (0.66-1.25) mg/dL Estimated GFR ML/MIN Glucose (74-106) mg/dL Lactic Acid (0.4-2.0) Calcium (8.4-10.2) mg/dL Total Bilirubin (0.2-1.3) mg/dL AST (17-59) U/L ALT (0-50) U/L Alkaline Phosphatase (38-126) U/L Troponin I < 0.012 (0.000-0.034) ng/mL NT-Pro-B Natriuret Pep (<300) pg/mL Serum Total Protein (6.3-8.2) g/dL Albumin (3.5-5.0) g/dL Urine Color (Yellow) Urine Appearance (Clear) Urine pH (4.6-8.0) Ur Specific [place] (1.005-1.030) Urine Protein (Negative) Urine Glucose (UA) (Negative) mg/dL Urine Ketones (Negative) Urine Blood (Negative) Urine Nitrite (Negative) Urine Bilirubin (Negative) Urine Urobilinogen (0.2) mg/dL Ur Leukocyte Esterase (Negative) U Hyaline Cast (Auto) (0-2) /LPF Urine Microscopic RBC (0-5) /HPF Urine Microscopic WBC (0-5) /HPF Ur Epithelial Cells (None Seen) /HPF Urine Bacteria (None Seen) /HPF Urine Culture Reflexed (NO) Influenza Type A Ag (NEGATIVE) Influenza Type B Ag (NEGATIVE) RSV (PCR) (NEGATIVE) SARS-CoV-2 (PCR) (NEGATIVE) - Radiology Impressions Radiology Exams & Impressions: Radiology Procedures Category Date Time Status ABDOMEN AND PELVIS W CONTRAST [CT] Stat Exams 01/15/23 13:16 Completed CHEST 1 VIEW (PORTABLE) Stat Exams 01/15/23 11:54 Taken CHEST WITH CONTRAST [CT] Stat Exams 01/15/23 13:16 Completed Assessment/Plan (1) General weakness Current Visit: Yes Status: Acute Assessment & Plan: Weakness secondary to hyponatremia and metabolic acidosis. Plan rehydration. Hyponatremia appears hypovolemic due to rise in serum Cr Will have PT evaluate tomorrow. Code(s): R53.1 - WEAKNESS (2) Hyponatremia Current Visit: Yes Status: Acute Assessment & Plan: Nf=[id number]. Sodium was 128 a few days ago. This appears to be hypovolemic hyponatremia Cr jumped from 1.0 to 1.25. Patient has had diarrhea. Treatment is IV fluids Code(s): E87.1 - HYPO-OSMOLALITY AND HYPONATREMIA (3) Acute renal insufficiency Current Visit: No Status: Acute Assessment & Plan: See above. Jump in serum Cr from 1.00 to 1.25 Treat with IV fluids Dehydration due to diarrhea Code(s): N28.9 - DISORDER OF KIDNEY AND URETER, UNSPECIFIED (4) Diarrhea Current Visit: No Status: Acute Qualifiers: Diarrhea type: unspecified type Qualified Code(s): R19.7 - Diarrhea, unspecified Assessment & Plan: Diarrhea seems to be improving. If persistent will get stool studies. Code(s): R19.7 - DIARRHEA, UNSPECIFIED (5) Hypertension Current Visit: No Status: Chronic Qualifiers: Hypertension type: essential hypertension Qualified Code(s): I10 - Essential (primary) hypertension Assessment & Plan: Continue home meds Code(s): I10 - ESSENTIAL (PRIMARY) HYPERTENSION Telemedicine Encounter - Telemedicine Encounter Telemedicine Encounter: The entirety of this encounter was performed via Telemedicine after consent obtained. Labs and imaging reviewed. Discussed with ER provider. Complex medical decision making 70 minutes spent on care of this patient Timur Alexander MD [facility]
[2023-01-15] MEDS ORDERED: TYLENOL 325 MG PO PRN (18:16)
[2023-01-15] MEDS ORDERED: Zofran 4 MG/2 ML VIAL IV PRN (18:16)
--- NOTE | 2023-01-15 18:22 | XRAY ---
Indication: Short of breath. Dehydration. Comparison: January 12, 2022 Portable chest remains inflated and clear. Heart not enlarged. Bony thorax intact again with osteopenia and mild degenerative changes. No new/acute findings.
[2023-01-15] MEDS: Sodium Chloride 0.9% W/ 20 mEq KCl/LITER 1,000 ML IV SCH (18:37)
[2023-01-15] MEDS: DESYREL 50 MG PO SCH (21:05)
[2023-01-15] MEDS: Pepcid 20 MG PO SCH (21:05)
[2023-01-16] MEDS: TYLENOL 325 MG PO PRN ×2 (03:34→17:21)
[2023-01-16] MEDS: Sodium Chloride 0.9% W/ 20 mEq KCl/LITER 1,000 ML IV SCH (04:12)
[2023-01-16 04:54] LABS: Absolute Neutrophil Ct (ANC) 2.84 x10^3/uL (1.4-6.9); BASOPHIL % 0.9 % (0.0-0.4); Basophil (Absolute #) 0.06 x10^3/uL (0-0.4); Eosinophil (Absolute #) 0.07 x10^3/uL (0-0.5); Hematocrit 35.5 % (42-50); Hemoglobin 12.6 g/dL (12.5-18.0); IMMATURE GRAN # 0.03 x10^3u/L (0.00-0.03); IMMATURE GRAN % 0.4 % (0.00-0.4); Lymphocyte (Absolute #) 2.85 x10^3/uL (1.0-4.6); Mean Cell Volume 87.9 fL (78-100); Mean Corpuscular Hemoglobin 31.2 pg (26-32); Mean Corpuscular Hgb Concent. 35.5 g/dL (32-36); Mean Platelet Volume 8.9 fL (7.5-11.0); Monocyte (Absolute #) 0.93 x10^3/uL (0.0-1.3); Monocytes % 13.7 % (0.0-12.0); Platelet Count 144 x10^3/uL (150-450); Red Blood Count 4.04 x10^6/uL (4.1-5.6); Red Cell Distribution Width 12.5 % (11.5-14.0); White Blood Count 6.8 x10^3/uL (4.0-10.5)
[2023-01-16 05:11] LABS: ALBUMIN 3.4 g/dL (3.5-5.0); ANION GAP 11.8 MEQ/L (5-15); BILIRUBIN,TOTAL 0.8 mg/dL (0.2-1.3); Creatinine 1 1.1 mg/dL (0.66-1.25); EST GLOMERULAR FILTRATION RATE 66.2 ML/MIN; Potassium 4.6 mmol/L (3.5-5.1); Total Protein 6.8 g/dL (6.3-8.2)
--- NOTE | 2023-01-16 05:27 | PCM.NOTE ---
Date and Time: 01/16/23525 Subjective Assessment: Mr. Hadley is an 82 year old male with PMHX of HTN, HLD, hypothyorid, and colon cancer who presented to ED 01/15/23 with c/o weakness for the past several weeks and diarrhea which started three days prior to presentation. Patient was found to be hyponatremic with sodium levels at 126, most likely secondary to h ypovolemia. Patient is currently being treated with IVF. Diarrhea has improved. Plan is for rehydration and physical therapy evaluation. Cdiff and stool studies pending. 01/16/23: Met with patient and son bedside. Patient febrile overnight with temp at 101.6. Patient endorses that he feels better and stronger today. Diarrhea has resolved since admission. Sodium levels have improved. Denies cough, sob, cp, abdominal pain, GUZMAN, dizziness, N/V/D. I - Review of Systems Constitutional: Fever Eyes: No Symptoms Ears, Nose, & Throat: No Symptoms Respiratory: No Symptoms Cardiac: No Symptoms Abdominal/Gastrointestinal: No Symptoms Genitourinary Symptoms: No Symptoms Musculoskeletal: No Symptoms Skin: No Symptoms Neurological: No Symptoms Psychological: No Symptoms Objective Exam General Appearance: no apparent distress Neurologic Exam: alert, oriented x 3, cooperative Skin Exam: pale Ears, Nose, Throat Exam: moist mucous membranes Neck Exam: normal inspection Respiratory Exam: normal breath sounds, lungs clear Cardiovascular Exam: regular rate/rhythm, normal heart sounds Gastrointestinal/Abdomen Exam: soft, normal bowel sounds Extremity Exam: normal inspection Back Exam: normal inspection OBJECTIVE DATA Vital Signs: Vital Signs - 24 hr Temp Pulse Resp BP BP Pulse Ox 01/16/23 04:15 99.6 F 01/16/23 04:00 101.6 F 89 20 162/72 94 L 01/16/23 00:00 99.6 F 94 H 19 179/79 91 L 01/15/23 20:16 99.8 F 83 17 166/77 92 L 01/15/23 20:00 89 16 01/15/23 17:00 77 16 97 01/15/23 16:55 97.5 F 78 16 164/75 94 L 01/15/23 16:35 97.5 F 78 16 164/75 94 L 01/15/23 16:17 97 01/15/23 14:04 79 13 144/71 97 01/15/23 11:55 97 01/15/23 11:35 97.5 F 85 22 147/70 98 Pain Assessment - Last Documented Pain Intensity 0 Pain Scale Used 0-10 Pain Scale Intake and Output: Intake & Output 01/13/23 01/14/23 01/15/23 01/16/23 11:59 11:59 11:59 11:59 Intake Total 2268 Balance 2268 Weight 77.5 kg 78.5 kg Lab Results: Lab Results-Last 24 Hours 01/15/23 01/15/23 01/15/23 Range/Units 12:05 12:05 12:05 WBC 7.3 (4.0-10.5) x10^3/uL RBC 4.43 (4.1-5.6) x10^6/uL Hgb 13.8 (12.5-18.0) g/dL Hct 39.8 L (42-50) % MCV 89.8 (78-100) fL MCH 31.2 (26-32) pg MCHC 34.7 (32-36) g/dL RDW 12.3 (11.5-14.0) % Plt Count 144 L (150-450) x10^3/uL MPV 8.5 (7.5-11.0) fL Segmented Neutrophils 49 (36.-66.) % Lymphocytes (Manual) 24 (24-44) % Monocytes (Manual) 13 H (0.0-12.0) % Eosinophils (Manual) 1 (0.00-3.0) % Atypical Lymphocytes 13 % Platelet Estimate NORMAL (NORMAL) RBC Morphology NORMAL Sodium 126 L (137-145) mmol/L Potassium 4.8 (3.5-5.1) mmol/L Chloride 96 L (98-107) mmol/L Carbon Dioxide 20 L (22-30) mmol/L Anion Gap 15.3 H (5-15) MEQ/L BUN 17 (9-20) mg/dL Creatinine 1.25 (0.66-1.25) mg/dL Estimated GFR 56.8 ML/MIN Glucose 107 H (74-106) mg/dL Lactic Acid (0.4-2.0) Calcium 8.9 (8.4-10.2) mg/dL Total Bilirubin 0.90 (0.2-1.3) mg/dL AST 49 (17-59) U/L ALT 30 (0-50) U/L Alkaline Phosphatase 75 (38-126) U/L Troponin I < 0.012 (0.000-0.034) ng/mL NT-Pro-B Natriuret Pep 701 (<300) pg/mL Serum Total Protein 7.5 (6.3-8.2) g/dL Albumin 3.9 (3.5-5.0) g/dL Urine Color (Yellow) Urine Appearance (Clear) Urine pH (4.6-8.0) Ur Specific [place] (1.005-1.030) Urine Protein (Negative) Urine Glucose (UA) (Negative) mg/dL Urine Ketones (Negative) Urine Blood (Negative) Urine Nitrite (Negative) Urine Bilirubin (Negative) Urine Urobilinogen (0.2) mg/dL Ur Leukocyte Esterase (Negative) U Hyaline Cast (Auto) (0-2) /LPF Urine Microscopic RBC (0-5) /HPF Urine Microscopic WBC (0-5) /HPF Ur Epithelial Cells (None Seen) /HPF Urine Bacteria (None Seen) /HPF Urine Culture Reflexed (NO) Influenza Type A Ag (NEGATIVE) Influenza Type B Ag (NEGATIVE) RSV (PCR) (NEGATIVE) SARS-CoV-2 (PCR) (NEGATIVE) 01/15/23 01/15/23 01/15/23 Range/Units 12:05 12:14 15:42 WBC (4.0-10.5) x10^3/uL RBC (4.1-5.6) x10^6/uL Hgb (12.5-18.0) g/dL Hct (42-50) % MCV (78-100) fL MCH (26-32) pg MCHC (32-36) g/dL RDW (11.5-14.0) % Plt Count (150-450) x10^3/uL MPV (7.5-11.0) fL Segmented Neutrophils (36.-66.) % Lymphocytes (Manual) (24-44) % Monocytes (Manual) (0.0-12.0) % Eosinophils (Manual) (0.00-3.0) % Atypical Lymphocytes % Platelet Estimate (NORMAL) RBC Morphology Sodium (137-145) mmol/L Potassium (3.5-5.1) mmol/L Chloride (98-107) mmol/L Carbon Dioxide (22-30) mmol/L Anion Gap (5-15) MEQ/L BUN (9-20) mg/dL Creatinine (0.66-1.25) mg/dL Estimated GFR ML/MIN Glucose (74-106) mg/dL Lactic Acid 2.0 (0.4-2.0) Calcium (8.4-10.2) mg/dL Total Bilirubin (0.2-1.3) mg/dL AST (17-59) U/L ALT (0-50) U/L Alkaline Phosphatase (38-126) U/L Troponin I (0.000-0.034) ng/mL NT-Pro-B Natriuret Pep (<300) pg/mL Serum Total Protein (6.3-8.2) g/dL Albumin (3.5-5.0) g/dL Urine Color Yellow (Yellow) Urine Appearance Clear (Clear) Urine pH 5.0 (4.6-8.0) Ur Specific [place] >=1.030 A (1.005-1.030) Urine Protein Negative (Negative) Urine Glucose (UA) Negative (Negative) mg/dL Urine Ketones Negative (Negative) Urine Blood Negative (Negative) Urine Nitrite Negative (Negative) Urine Bilirubin Negative (Negative) Urine Urobilinogen 0.2 (0.2) mg/dL Ur Leukocyte Esterase Negative (Negative) U Hyaline Cast (Auto) NONE SEEN (0-2) /LPF Urine Microscopic RBC 0-2 (0-5) /HPF Urine Microscopic WBC 0-2 (0-5) /HPF Ur Epithelial Cells None Seen (None Seen) /HPF Urine Bacteria None Seen (None Seen) /HPF Urine Culture Reflexed NO (NO) Influenza Type A Ag NEGATIVE (NEGATIVE) Influenza Type B Ag NEGATIVE (NEGATIVE) RSV (PCR) NEGATIVE (NEGATIVE) SARS-CoV-2 (PCR) NEGATIVE (NEGATIVE) 01/15/23 01/15/23 Range/Units 16:05 20:00 WBC (4.0-10.5) x10^3/uL RBC (4.1-5.6) x10^6/uL Hgb (12.5-18.0) g/dL Hct (42-50) % MCV (78-100) fL MCH (26-32) pg MCHC (32-36) g/dL RDW (11.5-14.0) % Plt Count (150-450) x10^3/uL MPV (7.5-11.0) fL Segmented Neutrophils (36.-66.) % Lymphocytes (Manual) (24-44) % Monocytes (Manual) (0.0-12.0) % Eosinophils (Manual) (0.00-3.0) % Atypical Lymphocytes % Platelet Estimate (NORMAL) RBC Morphology Sodium (137-145) mmol/L Potassium (3.5-5.1) mmol/L Chloride (98-107) mmol/L Carbon Dioxide (22-30) mmol/L Anion Gap (5-15) MEQ/L BUN (9-20) mg/dL Creatinine (0.66-1.25) mg/dL Estimated GFR ML/MIN Glucose (74-106) mg/dL Lactic Acid (0.4-2.0) Calcium (8.4-10.2) mg/dL Total Bilirubin (0.2-1.3) mg/dL AST (17-59) U/L ALT (0-50) U/L Alkaline Phosphatase (38-126) U/L Troponin I < 0.012 < 0.012 (0.000-0.034) ng/mL NT-Pro-B Natriuret Pep (<300) pg/mL Serum Total Protein (6.3-8.2) g/dL Albumin (3.5-5.0) g/dL Urine Color (Yellow) Urine Appearance (Clear) Urine pH (4.6-8.0) Ur Specific [place] (1.005-1.030) Urine Protein (Negative) Urine Glucose (UA) (Negative) mg/dL Urine Ketones (Negative) Urine Blood (Negative) Urine Nitrite (Negative) Urine Bilirubin (Negative) Urine Urobilinogen (0.2) mg/dL Ur Leukocyte Esterase (Negative) U Hyaline Cast (Auto) (0-2) /LPF Urine Microscopic RBC (0-5) /HPF Urine Microscopic WBC (0-5) /HPF Ur Epithelial Cells (None Seen) /HPF Urine Bacteria (None Seen) /HPF Urine Culture Reflexed (NO) Influenza Type A Ag (NEGATIVE) Influenza Type B Ag (NEGATIVE) RSV (PCR) (NEGATIVE) SARS-CoV-2 (PCR) (NEGATIVE) Radiology Exams: Radiology Procedures Category Date Time Status ABDOMEN AND PELVIS W CONTRAST [CT] Stat Exams 01/15/23 13:16 Completed CHEST 1 VIEW (PORTABLE) Stat Exams 01/15/23 11:54 Completed CHEST WITH CONTRAST [CT] Stat Exams 01/15/23 13:16 Completed Assessment/Plan (1) General weakness Current Visit: Yes Status: Acute Assessment & Plan: Weakness secondary to hyponatremia and metabolic acidosis. Plan rehydration. Hyponatremia appears hypovolemic due to rise in serum Cr Will have PT evaluate tomorrow. 01/16: -RT to evaluate today, appreciate recs Code(s): R53.1 - WEAKNESS (2) Hyponatremia Current Visit: Yes Status: Acute Assessment & Plan: [id number]. Sodium was 128 a few days ago. This appears to be hypovolemic hyponatremia Cr jumped from 1.0 to 1.25. Patient has had diarrhea. Treatment is IV fluids 01/16: -Improving, will d/c fluids, add sodium bicarb at 1300mg bid, continue to monitor Code(s): E87.1 - HYPO-OSMOLALITY AND HYPONATREMIA (3) Acute renal insufficiency Current Visit: No Status: Acute Assessment & Plan: See above. Jump in serum Cr from 1.00 to 1.25 Treat with IV fluids Dehydration due to diarrhea 01/16: -Creat now wnl Code(s): N28.9 - DISORDER OF KIDNEY AND URETER, UNSPECIFIED (4) Diarrhea Current Visit: No Status: Acute Qualifiers: Diarrhea type: unspecified type Qualified Code(s): R19.7 - Diarrhea, unspecified Assessment & Plan: Diarrhea seems to be improving. If persistent will get stool studies. 01/16: -Stool studies pending, diarrhea has resolved Code(s): R19.7 - DIARRHEA, UNSPECIFIED (5) Hypertension Current Visit: No Status: Chronic Qualifiers: Hypertension type: essential hypertension Qualified Code(s): I10 - Essential (primary) hypertension Assessment & Plan: Continue home meds Code(s): I10 - ESSENTIAL (PRIMARY) HYPERTENSION Code(s): R53.1 - WEAKNESS (2) Hyponatremia Current Visit: Yes Status: Acute Code(s): E87.1 - HYPO-OSMOLALITY AND HYPONATREMIA (3) Acute renal insufficiency Current Visit: No Status: Acute Code(s): N28.9 - DISORDER OF KIDNEY AND URETER, UNSPECIFIED (4) Diarrhea Current Visit: No Status: Acute Qualifiers: Diarrhea type: unspecified type Qualified Code(s): R19.7 - Diarrhea, unspecified Code(s): R19.7 - DIARRHEA, UNSPECIFIED (5) Hypertension Current Visit: No Status: Chronic Qualifiers: Hypertension type: essential hypertension Code(s): I10 - ESSENTIAL (PRIMARY) HYPERTENSION
[2023-01-16] MEDS: SYNTHROID 50 MCG PO SCH (06:41)
[2023-01-16 08:39] LABS: Slide Review 1 YES
[2023-01-16] MEDS: NORVASC 5 MG PO SCH (09:22)
[2023-01-16] MEDS: ENOXAPARIN SODIUM SQ SCH (09:22)
[2023-01-16] MEDS: ZOCOR 20MG PO SCH (09:22)
[2023-01-16] MEDS: Pepcid 20 MG PO SCH ×2 (09:22→21:29)
[2023-01-16] MEDS ORDERED: NON-FORMULARY ITEM (Atorvastatin Calcium 10 MG Tablet) PO SCH (10:00)
[2023-01-16] MEDS ORDERED: SODIUM BICARBONATE PO SCH ×2 (10:00→22:00)
[2023-01-16] MEDS ORDERED: SODIUM BICARBONATE PO ONE (10:45)
[2023-01-16] MEDS ORDERED: SODIUM CHLORIDE PO SCH ×2 (11:00→22:00)
[2023-01-16 11:08] LABS: ANION GAP 15.4 MEQ/L (5-15); Creatinine 1 1.19 mg/dL (0.66-1.25); EST GLOMERULAR FILTRATION RATE 60.2 ML/MIN; Potassium 4.1 mmol/L (3.5-5.1)
[2023-01-16 15:20] LABS: ANION GAP 14.4 MEQ/L (5-15); Calcium 7.7 mg/dL (8.4-10.2); Creatinine 1 0.99 mg/dL (0.66-1.25); EST GLOMERULAR FILTRATION RATE 75.1 ML/MIN; Potassium 4.7 mmol/L (3.5-5.1)
[2023-01-16] MEDS ORDERED: Sodium Bicarbonate 50 MEQ/50 ML VIAL*** 150 MEQ in Dextrose 5%/Water IV Soln. 1000 ML 8... IV SCH (16:00)
[2023-01-16 19:59] LABS: ANION GAP 10.4 MEQ/L (5-15); Calcium 7.9 mg/dL (8.4-10.2); Creatinine 1 1.21 mg/dL (0.66-1.25); Potassium 4.3 mmol/L (3.5-5.1)
[2023-01-16 20:10] LABS: Appearance Clear (Clear); Bacteria None Seen /HPF (None Seen); Bilirubin Negative (Negative); Blood Negative (Negative); Epithelial Cells None Seen /HPF (None Seen); Glucose, Urine Negative (Negative); Ketones Negative (Negative); Leukocyte Esterase Negative (Negative); Nitrite Negative (Negative); Protein,Urine Dip Negative (Negative); RBC 0-2 /HPF (0-5); Specific Gravity 1.025 (1.005-1.030); Urobilinogen 0.2 mg/dL (0.2); WBC 0-2 /HPF (0-5)
[2023-01-16 20:14] LABS: ADD URINE CULTURE? NO (NO)
[2023-01-16] MEDS: DESYREL 50 MG PO SCH (21:29)
[2023-01-16 22:58] LABS: ANION GAP 9.3 MEQ/L (5-15); Calcium 7.8 mg/dL (8.4-10.2); Creatinine 1 1.21 mg/dL (0.66-1.25); Potassium 4.1 mmol/L (3.5-5.1)
[2023-01-17] MEDS: TYLENOL 325 MG PO PRN (01:32)
--- NOTE | 2023-01-17 05:23 | PCM.NOTE ---
Date and Time: 01/17/23521 Subjective Assessment: Mr. Hadley is an 82 year old male with PMHX of HTN, HLD, hypothyorid, and colon cancer who presented to ED 01/15/23 with c/o weakness for the past several weeks and diarrhea which started three days prior to presentation. Patient was found to be hyponatremic with sodium levels at 126, most likely secondary to h ypovolemia. Patient is currently being treated with IVF. Diarrhea has improved. Plan is for rehydration and physical therapy evaluation. Cdiff and stool studies pending. 01/16/23: Met with patient and son bedside. Patient febrile overnight with temp at 101.6. Patient endorses that he feels better and stronger today. Diarrhea has resolved since admission. Sodium levels have improved. Denies cough, sob, cp, abdominal pain, GUZMAN, dizziness, N/V/D. 01/17/23: Met with patient bedside. Patient endorses that he is feeling stronger today. Discussed CT results Multiple enlarged berta hepatis and gastrohepatic LNs, which patient states he is aware. Advised follow up with heme/onc on dc for evaluation for which patient is agreeable, he currently does not have an onc ologist. Will refer to Dr. Rivero. Also discussed sodium levels which have not been responsive to salt tabs or IVF, will try Samsca today. - Review of Systems Constitutional: Fever (overnight) Eyes: No Symptoms Ears, Nose, & Throat: No Symptoms Respiratory: No Symptoms Cardiac: No Symptoms Abdominal/Gastrointestinal: No Symptoms Genitourinary Symptoms: No Symptoms Musculoskeletal: No Symptoms Skin: No Symptoms Neurological: No Symptoms Psychological: No Symptoms Endocrine: No Symptoms Hematologic/Lymphatic: No Symptoms Immunological/Allergic: No Symptoms Objective Exam General Appearance: no apparent distress Neurologic Exam: alert, oriented x 3, cooperative Skin Exam: normal color Eye Exam: PERRL Ears, Nose, Throat Exam: normal ENT inspection Neck Exam: normal inspection Respiratory Exam: normal breath sounds, lungs clear Cardiovascular Exam: regular rate/rhythm, normal heart sounds Gastrointestinal/Abdomen Exam: soft, normal bowel sounds Extremity Exam: normal inspection Back Exam: normal inspection OBJECTIVE DATA Vital Signs: Vital Signs - 24 hr Temp Pulse Resp BP Pulse Ox 01/17/23 04:38 98.0 F 71 18 138/63 91 L 01/17/23 04:00 20 01/17/23 01:31 100.2 F 01/17/23 00:00 18 01/16/23 23:44 97.5 F 73 16 120/57 95 01/16/23 20:00 68 18 01/16/23 19:48 98.5 F 67 16 99/55 97 01/16/23 18:05 100.6 F 01/16/23 16:00 101.4 F 92 H 17 139/63 95 01/16/23 12:00 18 01/16/23 11:59 99.0 F 84 17 130/63 94 L 01/16/23 08:00 17 01/16/23 07:10 98.7 F 76 17 135/62 98 Pain Assessment - Last Documented Pain Intensity 0 Pain Scale Used 0-10 Pain Scale Intake and Output: Intake & Output 01/14/23 01/15/23 01/16/23 01/17/23 11:59 11:59 11:59 11:59 Intake Total 2508 600 Output Total 300 Balance 2508 300 Weight 77.5 kg 78.5 kg Lab Results: Lab Results-Last 24 Hours 01/16/23 01/16/23 01/16/23 Range/Units 04:50 04:50 10:46 WBC 6.8 (4.0-10.5) x10^3/uL RBC 4.04 L (4.1-5.6) x10^6/uL Hgb 12.6 (12.5-18.0) g/dL Hct 35.5 L (42-50) % MCV 87.9 (78-100) fL MCH 31.2 (26-32) pg MCHC 35.5 (32-36) g/dL RDW 12.5 (11.5-14.0) % Plt Count 144 L (150-450) x10^3/uL MPV 8.9 (7.5-11.0) fL Gran % 42.0 (36.0-66.0) % Immature Gran % (Auto) 0.4 (0.00-0.4) % Nucleat RBC Rel Count 0.0 (0.00-0.1) % Eos # (Auto) 0.07 (0-0.5) x10^3/uL Immature Gran # (Auto) 0.03 (0.00-0.03) x10^3u/L Absolute Lymphs (auto) 2.85 (1.0-4.6) x10^3/uL Absolute Monos (auto) 0.93 (0.0-1.3) x10^3/uL Absolute Nucleated RBC 0.00 (0.00-0.01) x10^3u/L Lymphocytes % 42.0 (24.0-44.0) % Monocytes % 13.7 H (0.0-12.0) % Eosinophils % 1.0 (0.00-5.0) % Basophils % 0.9 (0.0-0.4) % Absolute Granulocytes 2.84 (1.4-6.9) x10^3/uL Basophils # 0.06 (0-0.4) x10^3/uL Sodium 124 L 128 L (137-145) mmol/L Potassium 4.6 4.1 (3.5-5.1) mmol/L Chloride 97 L 98 (98-107) mmol/L Carbon Dioxide 19 L 19 L (22-30) mmol/L Anion Gap 11.8 15.4 H (5-15) MEQ/L BUN 14 13 (9-20) mg/dL Creatinine 1.10 1.19 (0.66-1.25) mg/dL Estimated GFR 66.2 60.2 ML/MIN Glucose 96 121 H (74-106) mg/dL Lactic Acid (0.4-2.0) Calcium 8.0 L 8.0 L (8.4-10.2) mg/dL Total Bilirubin 0.80 (0.2-1.3) mg/dL AST 52 (17-59) U/L ALT 28 (0-50) U/L Alkaline Phosphatase 67 (38-126) U/L Serum Total Protein 6.8 (6.3-8.2) g/dL Albumin 3.4 L (3.5-5.0) g/dL Urine Color (Yellow) Urine Appearance (Clear) Urine pH (4.6-8.0) Ur Specific [place] (1.005-1.030) Urine Protein (Negative) Urine Glucose (UA) (Negative) mg/dL Urine Ketones (Negative) Urine Blood (Negative) Urine Nitrite (Negative) Urine Bilirubin (Negative) Urine Urobilinogen (0.2) mg/dL Ur Leukocyte Esterase (Negative) U Hyaline Cast (Auto) (0-2) /LPF Urine Microscopic RBC (0-5) /HPF Urine Microscopic WBC (0-5) /HPF Ur Epithelial Cells (None Seen) /HPF Urine Bacteria (None Seen) /HPF Urine Culture Reflexed (NO) Slides for Path Review YES 01/16/23 01/16/23 01/16/23 Range/Units 10:46 14:54 19:15 WBC (4.0-10.5) x10^3/uL RBC (4.1-5.6) x10^6/uL Hgb (12.5-18.0) g/dL Hct (42-50) % MCV (78-100) fL MCH (26-32) pg MCHC (32-36) g/dL RDW (11.5-14.0) % Plt Count (150-450) x10^3/uL MPV (7.5-11.0) fL Gran % (36.0-66.0) % Immature Gran % (Auto) (0.00-0.4) % Nucleat RBC Rel Count (0.00-0.1) % Eos # (Auto) (0-0.5) x10^3/uL Immature Gran # (Auto) (0.00-0.03) x10^3u/L Absolute Lymphs (auto) (1.0-4.6) x10^3/uL Absolute Monos (auto) (0.0-1.3) x10^3/uL Absolute Nucleated RBC (0.00-0.01) x10^3u/L Lymphocytes % (24.0-44.0) % Monocytes % (0.0-12.0) % Eosinophils % (0.00-5.0) % Basophils % (0.0-0.4) % Absolute Granulocytes (1.4-6.9) x10^3/uL Basophils # (0-0.4) x10^3/uL Sodium 125 L 124 L (137-145) mmol/L Potassium 4.7 4.3 (3.5-5.1) mmol/L Chloride 100 96 L (98-107) mmol/L Carbon Dioxide 15 L* 22 (22-30) mmol/L Anion Gap 14.4 10.4 (5-15) MEQ/L BUN 15 16 (9-20) mg/dL Creatinine 0.99 1.21 (0.66-1.25) mg/dL Estimated GFR 75.1 59.0 ML/MIN Glucose 112 H 113 H (74-106) mg/dL Lactic Acid 4.2 H (0.4-2.0) Calcium 7.7 L 7.9 L (8.4-10.2) mg/dL Total Bilirubin (0.2-1.3) mg/dL AST (17-59) U/L ALT (0-50) U/L Alkaline Phosphatase (38-126) U/L Serum Total Protein (6.3-8.2) g/dL Albumin (3.5-5.0) g/dL Urine Color (Yellow) Urine Appearance (Clear) Urine pH (4.6-8.0) Ur Specific [place] (1.005-1.030) Urine Protein (Negative) Urine Glucose (UA) (Negative) mg/dL Urine Ketones (Negative) Urine Blood (Negative) Urine Nitrite (Negative) Urine Bilirubin (Negative) Urine Urobilinogen (0.2) mg/dL Ur Leukocyte Esterase (Negative) U Hyaline Cast (Auto) (0-2) /LPF Urine Microscopic RBC (0-5) /HPF Urine Microscopic WBC (0-5) /HPF Ur Epithelial Cells (None Seen) /HPF Urine Bacteria (None Seen) /HPF Urine Culture Reflexed (NO) Slides for Path Review 01/16/23 01/16/23 01/17/23 Range/Units 19:45 22:20 03:37 WBC (4.0-10.5) x10^3/uL RBC (4.1-5.6) x10^6/uL Hgb (12.5-18.0) g/dL Hct (42-50) % MCV (78-100) fL MCH (26-32) pg MCHC (32-36) g/dL RDW (11.5-14.0) % Plt Count (150-450) x10^3/uL MPV (7.5-11.0) fL Gran % (36.0-66.0) % Immature Gran % (Auto) (0.00-0.4) % Nucleat RBC Rel Count (0.00-0.1) % Eos # (Auto) (0-0.5) x10^3/uL Immature Gran # (Auto) (0.00-0.03) x10^3u/L Absolute Lymphs (auto) (1.0-4.6) x10^3/uL Absolute Monos (auto) (0.0-1.3) x10^3/uL Absolute Nucleated RBC (0.00-0.01) x10^3u/L Lymphocytes % (24.0-44.0) % Monocytes % (0.0-12.0) % Eosinophils % (0.00-5.0) % Basophils % (0.0-0.4) % Absolute Granulocytes (1.4-6.9) x10^3/uL Basophils # (0-0.4) x10^3/uL Sodium 123 L (137-145) mmol/L Potassium 4.1 (3.5-5.1) mmol/L Chloride 96 L (98-107) mmol/L Carbon Dioxide 23 (22-30) mmol/L Anion Gap 9.3 (5-15) MEQ/L BUN 17 (9-20) mg/dL Creatinine 1.21 (0.66-1.25) mg/dL Estimated GFR 59.0 ML/MIN Glucose 110 H (74-106) mg/dL Lactic Acid 1.3 (0.4-2.0) Calcium 7.8 L (8.4-10.2) mg/dL Total Bilirubin (0.2-1.3) mg/dL AST (17-59) U/L ALT (0-50) U/L Alkaline Phosphatase (38-126) U/L Serum Total Protein (6.3-8.2) g/dL Albumin (3.5-5.0) g/dL Urine Color Yellow (Yellow) Urine Appearance Clear (Clear) Urine pH 5.0 (4.6-8.0) Ur Specific [place] 1.025 (1.005-1.030) Urine Protein Negative (Negative) Urine Glucose (UA) Negative (Negative) mg/dL Urine Ketones Negative (Negative) Urine Blood Negative (Negative) Urine Nitrite Negative (Negative) Urine Bilirubin Negative (Negative) Urine Urobilinogen 0.2 (0.2) mg/dL Ur Leukocyte Esterase Negative (Negative) U Hyaline Cast (Auto) 3-5 A (0-2) /LPF Urine Microscopic RBC 0-2 (0-5) /HPF Urine Microscopic WBC 0-2 (0-5) /HPF Ur Epithelial Cells None Seen (None Seen) /HPF Urine Bacteria None Seen (None Seen) /HPF Urine Culture Reflexed NO (NO) Slides for Path Review Radiology Exams: Radiology Procedures Category Date Time Status ABDOMEN AND PELVIS W CONTRAST [CT] Stat Exams 01/15/23 13:16 Completed CHEST 1 VIEW (PORTABLE) Stat Exams 01/15/23 11:54 Completed CHEST WITH CONTRAST [CT] Stat Exams 01/15/23 13:16 Completed Multi-Disciplinary Progress Notes: Multi-Disciplinary Progress Notes 01/16/23 15:58 Occupational Therapy Note by Bhavesh([id number])Didi OTR spoke with patient this afternoon. He was lying on his side in bed with two visitors present. OTR informed patient of Eval & Treat order and educated him on purpose and skillset of OT services. Patient verbalized understanding and requested evaluation tomorrow due to he had just gotten comfortable and wanted to try and sleep before dinner. OTR will follow-up tomorrow per patient request. Initialized on 01/16/23 15:58 - END OF NOTE Assessment/Plan (1) General weakness Current Visit: Yes Status: Acute Assessment & Plan: Weakness secondary to hyponatremia and metabolic acidosis. Plan rehydration. Hyponatremia appears hypovolemic due to rise in serum Cr Will have PT evaluate tomorrow. 01/16: -RT to evaluate today, appreciate recs Code(s): R53.1 - WEAKNESS (2) Hyponatremia Current Visit: Yes Status: Acute Assessment & Plan: Mg=725. Sodium was 128 a few days ago. This appears to be hypovolemic hyponatremia Cr jumped from 1.0 to 1.25. Patient has had diarrhea. Treatment is IV fluids 01/16: -Improving, will d/c fluids, add sodium bicarb at 1300mg bid, continue to monitor 01/17: -Sodium at 124, will add Samsca 30mg today -bicarb drip d/cd Code(s): E87.1 - HYPO-OSMOLALITY AND HYPONATREMIA (3) Acute renal insufficiency Current Visit: No Status: Acute Assessment & Plan: See above. Jump in serum Cr from 1.00 to 1.25 Treat with IV fluids Dehydration due to diarrhea 01/16: -Creat now wnl Code(s): N28.9 - DISORDER OF KIDNEY AND URETER, UNSPECIFIED (4) Diarrhea Current Visit: No Status: Acute Qualifiers: Diarrhea type: unspecified type Qualified Code(s): R19.7 - Diarrhea, unspecified Assessment & Plan: Diarrhea seems to be improving. If persistent will get stool studies. 01/16: -Stool studies pending, diarrhea has resolved Code(s): R19.7 - DIARRHEA, UNSPECIFIED (5) Hypertension Current Visit: No Status: Chronic Qualifiers: Hypertension type: essential hypertension Qualified Code(s): I10 - Essential (primary) hypertension Assessment & Plan: Continue home meds Code(s): I10 - ESSENTIAL (PRIMARY) HYPERTENSION Code(s): R53.1 - WEAKNESS #abnormal imaging -CT showing Multiple enlarged berta hepatis and gastrohepatic LNs, patient will follow up as OP with heme/onc on d/c Code(s): R53.1 - WEAKNESS (2) Hyponatremia Current Visit: Yes Status: Acute Code(s): E87.1 - HYPO-OSMOLALITY AND HYPONATREMIA (3) Acute renal insufficiency Current Visit: No Status: Acute Code(s): N28.9 - DISORDER OF KIDNEY AND URETER, UNSPECIFIED (4) Diarrhea Current Visit: No Status: Acute Qualifiers: Diarrhea type: unspecified type Qualified Code(s): R19.7 - Diarrhea, uns pecified Code(s): R19.7 - DIARRHEA, UNSPECIFIED (5) Hypertension Current Visit: No Status: Chronic Qualifiers: Hypertension type: essential hypertension Code(s): I10 - ESSENTIAL (PRIMARY) HYPERTENSION (6) Abnormal findings on diagnostic imaging of abdomen Current Visit: Yes Status: Acute Code(s): R93.5 - ABN FINDINGS ON DX IMAGING OF ABD REGIONS, INC RETROPERITON
[2023-01-17 06:10] LABS: Hemoglobin 11.7 g/dL (12.5-18.0); Mean Cell Volume 88.5 fL (78-100); Mean Corpuscular Hemoglobin 30.5 pg (26-32); Mean Corpuscular Hgb Concent. 34.4 g/dL (32-36); Mean Platelet Volume 8.9 fL (7.5-11.0); Platelet Count 137 x10^3/uL (150-450); Red Blood Count 3.84 x10^6/uL (4.1-5.6); Red Cell Distribution Width 12.3 % (11.5-14.0); White Blood Count 6.2 x10^3/uL (4.0-10.5)
[2023-01-17 06:41] LABS: ALBUMIN 3.2 g/dL (3.5-5.0); ANION GAP 9.1 MEQ/L (5-15); BILIRUBIN,TOTAL 0.6 mg/dL (0.2-1.3); Calcium 7.7 mg/dL (8.4-10.2); Creatinine 1 1.05 mg/dL (0.66-1.25); Potassium 3.8 mmol/L (3.5-5.1); Total Protein 6.4 g/dL (6.3-8.2)
[2023-01-17] MEDS: SYNTHROID 50 MCG PO SCH (07:00)
[2023-01-17] MEDS: Pepcid 20 MG PO SCH ×2 (09:27→23:34)
[2023-01-17] MEDS: NORVASC 5 MG PO SCH (09:28)
[2023-01-17] MEDS: ZOCOR 20MG PO SCH (09:28)
[2023-01-17] MEDS: ENOXAPARIN SODIUM SQ SCH (09:28)
[2023-01-17] MEDS: TOLVAPTAN PO SCH (10:48)
[2023-01-17 16:16] LABS: Creatinine 1 0.9 mg/dL (0.66-1.25); EST GLOMERULAR FILTRATION RATE 84.2 ML/MIN; Potassium 4.1 mmol/L (3.5-5.1)
--- NOTE | 2023-01-17 17:00 | XRAY ---
Indication: Fever. Comparison: January 15, 2023. Portable chest again demonstrates minimal bibasilar subsegmental atelectasis/scarring as seen on CT chest 2 days ago. Remaining heart and lungs unremarkable. No new/acute findings.
[2023-01-17 19:47] LABS: ANION GAP 8.1 MEQ/L (5-15); Calcium 7.9 mg/dL (8.4-10.2); Creatinine 1 0.95 mg/dL (0.66-1.25); EST GLOMERULAR FILTRATION RATE 78.9 ML/MIN
[2023-01-17] MEDS: DESYREL 50 MG PO SCH (23:35)
[2023-01-17 23:39] LABS: ANION GAP 8.1 MEQ/L (5-15); Calcium 8.2 mg/dL (8.4-10.2); Creatinine 1 1.17 mg/dL (0.66-1.25); EST GLOMERULAR FILTRATION RATE 61.5 ML/MIN; Potassium 4.3 mmol/L (3.5-5.1)
[2023-01-18 05:07] LABS: Hematocrit 37.7 % (42-50); Hemoglobin 12.8 g/dL (12.5-18.0); Mean Cell Volume 90.4 fL (78-100); Mean Corpuscular Hemoglobin 30.7 pg (26-32); Mean Platelet Volume 9.5 fL (7.5-11.0); Platelet Count 145 x10^3/uL (150-450); Red Blood Count 4.17 x10^6/uL (4.1-5.6); Red Cell Distribution Width 12.4 % (11.5-14.0); White Blood Count 8.2 x10^3/uL (4.0-10.5)
--- NOTE | 2023-01-18 05:18 | PCM.NOTE ---
Date and Time: 01/18/23 0516 Subjective Assessment: Mr. Hadley is an 82 year old male with PMHX of HTN, HLD, hypothyorid, and colon cancer who presented to ED 01/15/23 with c/o weakness for the past several weeks and diarrhea which started three days prior to presentation. Patient admitted with weakness and hyponatremia. Hyponatremia was believed to be hypovolemic since he was having diarrhea and poor oral intake. He was given IV fluids, but sodium did not improve and in fact, dropped from 126 to 124. 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 He does not have hypervolemic hyponatremia. Tolvaptan given to correct sodium. Patient has had a few episodes of fever . CT of chest showed no pneumonia. WBC is normal. UA was negative. Viral panel was negative for RSV, Flu and COVID. Blood cultures are pending. 01/16/23: Met with patient and son bedside. Patient febrile overnight with temp at 101.6. Patient endorses that he feels better and stronger today. Diarrhea has resolved since admission. Sodium levels have improved. Denies cough, sob, cp, abdominal pain, GUZMAN, dizziness, N/V/D. 01/17/23: Met with patient bedside. Patient endorses that he is feeling stronger today. Discussed CT results Multiple enlarged berta hepatis and gastrohepatic LNs, which patient states he is aware. Advised follow up with heme/onc on dc for evaluation for which patient is agreeable, he currently does not have an oncologist. Will refer to Dr. Rivero. Also discussed sodium levels which have not been responsive to salt tabs or IVF, will try Samsca today. 01/18: No overnight events noted. Discussed labs with patient and his son, sodium levels are improving. Will continue Samsca for one more day, most likely will be able to discharge in the morning. Advised patient that he will need to follow up with nephrology for further workup and evaluation of his hyponatremia. Patient reports his energy level is much improved today. Worked with PT and was able to ambulate with rollator with no unsteadiness and at a functional pace. Denies fever,cough, sob, cp, abdominal pain, GUZMAN, dizziness, N/V/D. - Review of Systems Constitutional: No Symptoms Eyes: No Symptoms Ears, Nose, & Throat: No Symptoms Respiratory: No Symptoms Cardiac: No Symptoms Abdominal/Gastrointestinal: No Symptoms Genitourinary Symptoms: No Symptoms Musculoskeletal: No Symptoms Skin: No Symptoms Neurological: No Symptoms Psychological: No Symptoms Endocrine: No Symptoms Objective Exam General Appearance: no apparent distress Neurologic Exam: alert, oriented x 3, cooperative Skin Exam: normal color Eye Exam: PERRL Ears, Nose, Throat Exam: normal ENT inspection Neck Exam: normal inspection Respiratory Exam: normal breath sounds, lungs clear Cardiovascular Exam: regular rate/rhythm, normal heart sounds Gastrointestinal/Abdomen Exam: soft, normal bowel sounds Extremity Exam: normal inspection Back Exam: normal inspection OBJECTIVE DATA Vital Signs: Vital Signs - 24 hr Temp Pulse Resp BP Pulse Ox 01/18/23 03:54 97.8 F 88 14 153/67 96 01/18/23 00:00 97.9 F 82 23 97 01/17/23 20:00 99.9 F 85 17 140/73 95 01/17/23 16:00 12 01/17/23 12:00 16 01/17/23 11:37 98.0 F 78 16 139/63 92 L 01/17/23 08:00 16 01/17/23 06:49 98.0 F 71 16 148/65 97 Pain Assessment - Last Documented Pain Intensity 0 Pain Scale Used 0-10 Pain Scale Intake and Output: Intake & Output 01/15/23 01/16/23 01/17/23 01/18/23 11:59 11:59 11:59 11:59 Intake Total 2508 800 420 Output Total 600 600 Balance 2508 200 -180 Weight 77.5 kg 78.5 kg Lab Results: Lab Results-Last 24 Hours 01/17/23 01/17/23 01/17/23 Range/Units 05:52 05:52 15:50 WBC 6.2 (4.0-10.5) x10^3/uL RBC 3.84 L (4.1-5.6) x10^6/uL Hgb 11.7 L (12.5-18.0) g/dL Hct 34.0 L (42-50) % MCV 88.5 (78-100) fL MCH 30.5 (26-32) pg MCHC 34.4 (32-36) g/dL RDW 12.3 (11.5-14.0) % Plt Count 137 L (150-450) x10^3/uL MPV 8.9 (7.5-11.0) fL Sodium 124 L 128 L (137-145) mmol/L Potassium 3.8 4.1 (3.5-5.1) mmol/L Chloride 94 L 96 L (98-107) mmol/L Carbon Dioxide 24 26 (22-30) mmol/L Anion Gap 9.1 10.0 (5-15) MEQ/L BUN 15 13 (9-20) mg/dL Creatinine 1.05 0.90 (0.66-1.25) mg/dL Estimated GFR 70.0 84.2 ML/MIN Glucose 108 H 106 (74-106) mg/dL Calcium 7.7 L 8.0 L (8.4-10.2) mg/dL Total Bilirubin 0.60 (0.2-1.3) mg/dL AST 60 H (17-59) U/L ALT 28 (0-50) U/L Alkaline Phosphatase 64 (38-126) U/L Serum Total Protein 6.4 (6.3-8.2) g/dL Albumin 3.2 L (3.5-5.0) g/dL 01/17/23 01/17/23 01/18/23 Range/Units 19:29 23:24 04:59 WBC 8.2 (4.0-10.5) x10^3/uL RBC 4.17 (4.1-5.6) x10^6/uL Hgb 12.8 (12.5-18.0) g/dL Hct 37.7 L (42-50) % MCV 90.4 (78-100) fL MCH 30.7 (26-32) pg MCHC 34.0 (32-36) g/dL RDW 12.4 (11.5-14.0) % Plt Count 145 L (150-450) x10^3/uL MPV 9.5 (7.5-11.0) fL Sodium 124 L 129 L (137-145) mmol/L Potassium 4.0 4.3 (3.5-5.1) mmol/L Chloride 99 99 (98-107) mmol/L Carbon Dioxide 22 27 (22-30) mmol/L Anion Gap 8.1 8.1 (5-15) MEQ/L BUN 13 13 (9-20) mg/dL Creatinine 0.95 1.17 (0.66-1.25) mg/dL Estimated GFR 78.9 61.5 ML/MIN Glucose 130 H 114 H (74-106) mg/dL Calcium 7.9 L 8.2 L (8.4-10.2) mg/dL Total Bilirubin (0.2-1.3) mg/dL AST (17-59) U/L ALT (0-50) U/L Alkaline Phosphatase (38-126) U/L Serum Total Protein (6.3-8.2) g/dL Albumin (3.5-5.0) g/dL Radiology Exams: Radiology Procedures Category Date Time Status CHEST 1 VIEW (PORTABLE) Urgent Exams 01/17/23 16:18 Completed Multi-Disciplinary Progress Notes: Multi-Disciplinary Progress Notes 01/17/23 14:08 PT IP Plan of Care Note by Miguelito([id number])Viviana PT. WALKING IN HALLWAY W/ RN P.T. WAS PLANNING TO SEE HIM. PT. AMBULATED 200' W/ ROLLATOR W/ STEADY PATTERN. AMBULATED 150' AFTER THAT WITHOUT WALKER W/ CGA-SBA W/ SLIGHT LATERAL UNSTEADINESS. PT. WALKS W/ FAST PACE AND NEEDS V.C. TO SLOW DOWN AND INCREASE FOOT CLEARANCE. PT'S GAIT IS MORE STABLE W/ ROLLATOR AND HE IS INTERESTED IN OBTAINING ONE FOR HOME. ROLLATOR W/ SEAT WOULD INCREASE GAIT STABILITY FOR SAFETY @ D/C. WILL MONITOR PROGRESS DURING STAY. Initialized on 01/17/23 14:08 - END OF NOTE 01/17/23 10:45 (created 01/17/23 12:04) Case Management Note by Beatriz Fuller S/W PATIENT- HE CONTINUES TO DENY ANY NEW NEEDS AT TIME OF DC. HE PLANS TO DC HOME TO HIS PLF. HE CONTINUES TO DENY DECLINE HHC AT THIS TIME Initialized on 01/17/23 12:04 - END OF NOTE Assessment/Plan (1) Hyponatremia Current Visit: Yes Status: Acute Assessment & Plan: Tc=017. Sodium was 128 a few days ago. This appears to be hypovolemic hyponatremia Cr jumped from 1.0 to 1.25. Patient has had diarrhea. Treatment is IV fluids 01/16: -Improving, will d/c fluids, add sodium bicarb at 1300mg bid, continue to monitor 01/17: -Sodium at 124, will add Samsca 30mg today -bicarb drip d/cd 01/18: -sodium levels improving at 129 today, will give one more dose of Samsca, possible discharge tomorrow with close follow up by nephrology Code(s): E87.1 - HYPO-OSMOLALITY AND HYPONATREMIA (2) General weakness Current Visit: Yes Status: Acute Assessment & Plan: Weakness secondary to hyponatremia and metabolic acidosis. Plan rehydration. Hyponatremia appears hypovolemic due to rise in serum Cr Will have PT evaluate tomorrow. 01/16: -RT to evaluate today, appreciate recs 01/18: -PT note reviewed, patient able to ambulate with rollator w/ no unsteadiness and at a functional pace. Code(s): R53.1 - WEAKNESS (3) Acute renal insufficiency Current Visit: No Status: Acute Assessment & Plan: See above. Jump in serum Cr from 1.00 to 1.25 Treat with IV fluids Dehydration due to diarrhea 01/16: -Creat now wnl Code(s): N28.9 - DISORDER OF KIDNEY AND URETER, UNSPECIFIED (4) Diarrhea Current Visit: No Status: Acute Qualifiers: Diarrhea type: unspecified type Qualified Code(s): R19.7 - Diarrhea, unspecified Assessment & Plan: Diarrhea seems to be improving. If persistent will get stool studies. 01/16: -Stool studies pending, diarrhea has resolved 01/18: -No further episodes, unable to collect stool specimen Code(s): R19.7 - DIARRHEA, UNSPECIFIED (5) Hypertension Current Visit: No Status: Chronic Qualifiers: Hypertension type: essential hypertension Qualified Code(s): I10 - Essential (primary) hypertension Assessment & Plan: Continue home meds Code(s): I10 - ESSENTIAL (PRIMARY) HYPERTENSION Code(s): R53.1 - WEAKNESS #abnormal imaging -CT showing Multiple enlarged berta hepatis and gastrohepatic LNs, patient will follow up as OP with heme/onc on d/c Code(s): R53.1 - WEAKNESS (2) Hyponatremia Current Visit: Yes Status: Acute Code(s): E87.1 - HYPO-OSMOLALITY AND HYPONATREMIA (3) Acute renal insufficiency Current Visit: No Status: Acute Code(s): N28.9 - DISORDER OF KIDNEY AND URETER, UNSPECIFIED (4) Diarrhea Current Visit: No Status: Acute Qualifiers: Diarrhea type: unspecified type Qualified Code(s): R19.7 - Diarrhea, unspecified Code(s): R19.7 - DIARRHEA, UNSPECIFIED (5) Hypertension Current Visit: No Status: Chronic Qualifiers: Hypertension type: essential hypertension Code(s): I10 - ESSENTIAL (PRIMARY) HYPERTENSION (6) Abnormal findings on diagnostic imaging of abdomen Current Visit: Yes Status: Acute Code(s): R93.5 - ABN FINDINGS ON DX IMAGING OF ABD REGIONS, INC RETROPERITON Code(s): E87.1 - HYPO-OSMOLALITY AND HYPONATREMIA (2) General weakness Current Visit: Yes Status: Acute Code(s): R53.1 - WEAKNESS (3) Acute renal insufficiency Current Visit: No Status: Acute Code(s): N28.9 - DISORDER OF KIDNEY AND URETER, UNSPECIFIED (4) Diarrhea Current Visit: No Status: Acute Qualifiers: Diarrhea type: unspecified type Qualified Code(s): R19.7 - Diarrhea, unspecified Code(s): R19.7 - DIARRHEA, UNSPECIFIED (5) Hypertension Current Visit: No Status: Chronic Qualifiers: Hypertension type: essential hypertension Code(s): I10 - ESSENTIAL (PRIMARY) HYPERTENSION (6) Abnormal findings on diagnostic imaging of abdomen Current Visit: Yes Status: Acute Code(s): R93.5 - ABN FINDINGS ON DX IMAGING OF ABD REGIONS, INC RETROPERITON
[2023-01-18 05:22] LABS: ALBUMIN 3.4 g/dL (3.5-5.0); ANION GAP 8.4 MEQ/L (5-15); BILIRUBIN,TOTAL 0.5 mg/dL (0.2-1.3); Calcium 8.1 mg/dL (8.4-10.2); Creatinine 1 1.08 mg/dL (0.66-1.25); EST GLOMERULAR FILTRATION RATE 67.7 ML/MIN; Potassium 4.2 mmol/L (3.5-5.1); Total Protein 6.8 g/dL (6.3-8.2)
[2023-01-18] MEDS: SYNTHROID 50 MCG PO SCH (08:08)
[2023-01-18] MEDS: ENOXAPARIN SODIUM SQ SCH (09:17)
[2023-01-18] MEDS: NORVASC 5 MG PO SCH (09:18)
[2023-01-18] MEDS: Pepcid 20 MG PO SCH ×2 (09:18→22:28)
[2023-01-18] MEDS: TOLVAPTAN PO SCH (09:18)
[2023-01-18] MEDS: ZOCOR 20MG PO SCH (09:18)
[2023-01-18 10:56] LABS: CEA 1.2 ng/mL (0.0-4.7)
[2023-01-18 13:17] LABS: Appearance Clear (Clear); Bacteria None Seen /HPF (None Seen); Bilirubin Negative (Negative); Blood Negative (Negative); Epithelial Cells None Seen /HPF (None Seen); Glucose, Urine Negative (Negative); Hyaline Casts NONE SEEN /LPF (0-2); Ketones Negative (Negative); Leukocyte Esterase Negative (Negative); Nitrite Negative (Negative); Ph 7.5 (4.6-8.0); Protein,Urine Dip Negative (Negative); RBC 0-2 /HPF (0-5); WBC 0-2 /HPF (0-5)
[2023-01-18 13:24] LABS: ADD URINE CULTURE? NO (NO)
[2023-01-18 15:09] LABS: ANION GAP 13.1 MEQ/L (5-15); Calcium 8.2 mg/dL (8.4-10.2); EST GLOMERULAR FILTRATION RATE 74.2 ML/MIN; Potassium 4.3 mmol/L (3.5-5.1)
[2023-01-18] MEDS: TYLENOL 325 MG PO PRN (19:42)
[2023-01-18] MEDS: DESYREL 50 MG PO SCH (22:28)
[2023-01-19 05:08] LABS: Hematocrit 39.8 % (42-50); Hemoglobin 12.9 g/dL (12.5-18.0); Mean Cell Volume 96.8 fL (78-100); Mean Corpuscular Hemoglobin 31.4 pg (26-32); Mean Corpuscular Hgb Concent. 32.4 g/dL (32-36); Mean Platelet Volume 9.2 fL (7.5-11.0); Platelet Count 147 x10^3/uL (150-450); Red Blood Count 4.11 x10^6/uL (4.1-5.6); Red Cell Distribution Width 12.7 % (11.5-14.0)
--- NOTE | 2023-01-19 05:10 | PCM.DS ---
Discharge Summary Date of Admission: 01/16/23 15:00 Date of Discharge: 01/19/23 Admitting Physician: LENNY ROB MD Primary Care Provider: SP CALDERÓN MOMO Allergies Allergies No Known Drug Allergies Allergy (Verified 01/15/23 11:35) Hospital Summary - Hospital Course Hospital Course: Mr. Hadley is an 82 year old male with PMHX of HTN, HLD, hypothyorid, and colon cancer who presented to ED 01/15/23 with c/o weakness for the past several weeks and diarrhea which started three days prior to presentation. Patient admitted with weakness and hyponatremia. Hyponatremia was believed to be hypovolemic since he was having diarrhea and poor oral intake. He was given IV fluids, but sodium did not improve and in fact, dropped from 126 to 124. 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 He does not have hypervolemic hyponatremia. Tolvaptan given to correct sodium for the past two days with no improvement. Patient has had a few episodes of fever, today at [address] of chest showed no pneumonia. -CT abdomen showing Multiple enlarged berta hepatis and gastrohepatic LNs, WBC is slightly elevated. Repeat CXR negative. UA was negative. Viral panel was negative for RSV, Flu and COVID. Blood cultures are negative. [facility] for higher level of care with nephrology, ID, heme/onc specialty care. Latest Assessment & Plan (1) Hyponatremia Current Visit: Yes Status: Acute Assessment & Plan: [id number]. Sodium was 128 a few days ago. This appears to be hypovolemic hyponatremia Cr jumped from 1.0 to 1.25. Patient has had diarrhea. Treatment is IV fluids 01/16: -Improving, will d/c fluids, add sodium bicarb at 1300mg bid, continue to monitor 01/17: -Sodium at 124, will add Samsca 30mg today -bicarb drip d/cd 01/18: -sodium levels improving at 129 today, will give one more dose of Samsca, possible discharge tomorrow with close follow up by nephrology Code(s): E87.1 - HYPO-OSMOLALITY AND HYPONATREMIA (2) General weakness Current Visit: Yes Status: Acute Assessment & Plan: Weakness secondary to hyponatremia and metabolic acidosis. Plan rehydration. Hyponatremia appears hypovolemic due to rise in serum Cr Will have PT evaluate tomorrow. 12/11: -RT to evaluate today, appreciate recs 01/18: -PT note reviewed, patient able to ambulate with rollator w/ no unsteadiness and at a functional pace. Code(s): R53.1 - WEAKNESS (3) Acute renal insufficiency Current Visit: No Status: Acute Assessment & Plan: See above. Jump in serum Cr from 1.00 to 1.25 Treat with IV fluids Dehydration due to diarrhea 01/16: -Creat now wnl Code(s): N28.9 - DISORDER OF KIDNEY AND URETER, UNSPECIFIED (4) Diarrhea Current Visit: No Status: Acute Qualifiers: Diarrhea type: unspecified type Qualified Code(s): R19.7 - Diarrhea, unspecified Assessment & Plan: Diarrhea seems to be improving. If persistent will get stool studies. 01/16: -Stool studies pending, diarrhea has resolved 01/18: -No further episodes, unable to collect stool specimen Code(s): R19.7 - DIARRHEA, UNSPECIFIED (5) Hypertension Current Visit: No Status: Chronic Qualifiers: Hypertension type: essential hypertension Qualified Code(s): I10 - Essential (primary) hypertension Assessment & Plan: Continue home meds Code(s): I10 - ESSENTIAL (PRIMARY) HYPERTENSION Code(s): R53.1 - WEAKNESS #abnormal imaging -CT showing Multiple enlarged berta hepatis and gastrohepatic LNs, patient will follow up as OP with heme/onc on d/c Code(s): R53.1 - WEAKNESS (2) Hyponatremia Current Visit: Yes Status: Acute Code(s): E87.1 - HYPO-OSMOLALITY AND HYPONATREMIA (3) Acute renal insufficiency Current Visit: No Status: Acute Code(s): N28.9 - DISORDER OF KIDNEY AND URETER, UNSPECIFIED (4) Diarrhea Current Visit: No Status: Acute Qualifiers: Diarrhea type: unspecified type Qualified Code(s): R19.7 - Diarrhea, unspecified Code(s): R19.7 - DIARRHEA, UNSPECIFIED (5) Hypertension Current Visit: No Status: Chronic Qualifiers: Hypertension type: essential hypertension Code(s): I10 - ESSENTIAL (PRIMARY) HYPERTENSION (6) Abnormal findings on diagnostic imaging of abdomen Current Visit: Yes Status: Acute Code(s): R93.5 - ABN FINDINGS ON DX IMAGING OF ABD REGIONS, INC RETROPERITON Code(s): E87.1 - HYPO-OSMOLALITY AND HYPONATREMIA I spent 35 minutes [id number] with the patient on the day of discharge performing discharge exam, discussing hospital stay and discharge instructions with patient and caregivers, preparation of discharge records, prescriptions & referral forms and addressing any questions/concerns the patient had as documented above. - Vitals & Intake/Output Vital Signs: Vital Signs Temperature 97.9 F 01/19/23 04:00 Pulse Rate 88 01/19/23 04:00 Respiratory Rate 20 01/19/23 04:00 Blood Pressure 156/67 01/19/23 04:00 O2 Sat by Pulse Oximetry 96 01/19/23 04:00 Intake & Output: Intake & Output 01/16/23 01/17/23 01/18/23 01/19/23 11:59 11:59 11:59 11:59 Intake Total 2508 800 420 380 Output Total 600 600 0 Balance 2508 200 -180 380 Weight 78.5 kg 78.5 kg - Lab Result Diagrams: 01/19/23 04:40 01/19/23 04:40 Lab Results-Last 24 Hrs: Lab Results-Last 24 Hours 01/16/23 01/17/23 01/18/23 Range/Units 19:15 13:05 04:59 WBC 8.2 (4.0-10.5) x10^3/uL RBC 4.17 (4.1-5.6) x10^6/uL Hgb 12.8 (12.5-18.0) g/dL Hct 37.7 L (42-50) % MCV 90.4 (78-100) fL MCH 30.7 (26-32) pg MCHC 34.0 (32-36) g/dL RDW 12.4 (11.5-14.0) % Plt Count 145 L (150-450) x10^3/uL MPV 9.5 (7.5-11.0) fL Sodium (137-145) mmol/L Potassium (3.5-5.1) mmol/L Chloride (98-107) mmol/L Carbon Dioxide (22-30) mmol/L Anion Gap (5-15) MEQ/L BUN (9-20) mg/dL Creatinine (0.66-1.25) mg/dL Estimated GFR ML/MIN Glucose (74-106) mg/dL Calcium (8.4-10.2) mg/dL Total Bilirubin (0.2-1.3) mg/dL AST (17-59) U/L ALT (0-50) U/L Alkaline Phosphatase (38-126) U/L Serum Total Protein (6.3-8.2) g/dL Albumin (3.5-5.0) g/dL Carcinoembryonic Ag 1.2 (0.0-4.7) ng/mL CA 19-9 Antigen 24 (0-35) U/mL Urine Color Yellow (Yellow) Urine Appearance Clear (Clear) Urine pH 7.5 (4.6-8.0) Ur Specific Monitor 1.010 (1.005-1.030) Urine Protein Negative (Negative) Urine Glucose (UA) Negative (Negative) mg/dL Urine Ketones Negative (Negative) Urine Blood Negative (Negative) Urine Nitrite Negative (Negative) Urine Bilirubin Negative (Negative) Urine Urobilinogen 1.0 A (0.2) mg/dL Ur Leukocyte Esterase Negative (Negative) U Hyaline Cast (Auto) NONE SEEN (0-2) /LPF Urine Microscopic RBC 0-2 (0-5) /HPF Urine Microscopic WBC 0-2 (0-5) /HPF Ur Epithelial Cells None Seen (None Seen) /HPF Urine Bacteria None Seen (None Seen) /HPF Urine Culture Reflexed NO (NO) 01/18/23 01/18/23 Range/Units 04:59 14:28 WBC (4.0-10.5) x10^3/uL RBC (4.1-5.6) x10^6/uL Hgb (12.5-18.0) g/dL Hct (42-50) % MCV (78-100) fL MCH (26-32) pg MCHC (32-36) g/dL RDW (11.5-14.0) % Plt Count (150-450) x10^3/uL MPV (7.5-11.0) fL Sodium 129 L 129 L (137-145) mmol/L Potassium 4.2 4.3 (3.5-5.1) mmol/L Chloride 99 97 L (98-107) mmol/L Carbon Dioxide 26 23 (22-30) mmol/L Anion Gap 8.4 13.1 (5-15) MEQ/L BUN 12 11 (9-20) mg/dL Creatinine 1.08 1.00 (0.66-1.25) mg/dL Estimated GFR 67.7 74.2 ML/MIN Glucose 102 122 H (74-106) mg/dL Calcium 8.1 L 8.2 L (8.4-10.2) mg/dL Total Bilirubin 0.50 (0.2-1.3) mg/dL AST 94 H (17-59) U/L ALT 41 (0-50) U/L Alkaline Phosphatase 75 (38-126) U/L Serum Total Protein 6.8 (6.3-8.2) g/dL Albumin 3.4 L (3.5-5.0) g/dL Carcinoembryonic Ag (0.0-4.7) ng/mL CA 19-9 Antigen (0-35) U/mL Urine Color (Yellow) Urine Appearance (Clear) Urine pH (4.6-8.0) Ur Specific Monitor (1.005-1.030) Urine Protein (Negative) Urine Glucose (UA) (Negative) mg/dL Urine Ketones (Negative) Urine Blood (Negative) Urine Nitrite (Negative) Urine Bilirubin (Negative) Urine Urobilinogen (0.2) mg/dL Ur Leukocyte Esterase (Negative) U Hyaline Cast (Auto) (0-2) /LPF Urine Microscopic RBC (0-5) /HPF Urine Microscopic WBC (0-5) /HPF Ur Epithelial Cells (None Seen) /HPF Urine Bacteria (None Seen) /HPF Urine Culture Reflexed (NO) Micro Results-Entire Visit: Microbiology 01/16/23 11:34 Blood Culture - Preliminary Blood - Radiology Exams Ordered Rad Exams-Entire Visit: Radiology Procedures Category Date Time Status CHEST 1 VIEW (PORTABLE) Urgent Exams 01/17/23 16:18 Completed - Procedures and Test Procedures and Tests throughout Hospitalization: Therapy Orders & Screens 01/15/23 16:35 Respiratory Therapy Consult ONCE Comment: Reason For Exam: 01/15/23 18:13 PT Eval & Treat ( Order) ONCE Reason for Eval:: Weakness Diagnosis: Hyponatremia Oxygen Nasal Cannula 2 lpm Comment: Diagnosis: Hyponatremia OT Eval and Treat (MD Order) ONCE Comment: Physician Instructions: Reason For Exam: Diagnosis: Hyponatremia Discharge Exam General Appearance: no apparent distress Neurologic Exam: alert, oriented x 3, cooperative Eye Exam: PERRL Ears, Nose, Throat Exam: normal ENT inspection Neck Exam: normal inspection Respiratory Exam: normal breath sounds, lungs clear Cardiovascular Exam: regular rate/rhythm, normal heart sounds Gastrointestinal/Abdomen Exam: soft, normal bowel sounds Male Genitalia Exam: deferred Rectal Exam: deferred Back Exam: normal inspection Extremity Exam: normal inspection Skin Exam: pale Final Diagnosis/Problem List - Final Discharge Diagnosis/Problem (1) Hyponatremia Current Visit: Yes Status: Acute Code(s): E87.1 - HYPO-OSMOLALITY AND HYPONATREMIA (2) General weakness Current Visit: Yes Status: Acute Code(s): R53.1 - WEAKNESS (3) Acute renal insufficiency Current Visit: No Status: Acute Code(s): N28.9 - DISORDER OF KIDNEY AND URETER, UNSPECIFIED (4) Diarrhea Current Visit: No Status: Acute Code(s): R19.7 - DIARRHEA, UNSPECIFIED (5) Hypertension Current Visit: No Status: Chronic Code(s): I10 - ESSENTIAL (PRIMARY) HYPERTENSION (6) Abnormal findings on diagnostic imaging of abdomen Current Visit: Yes Status: Acute Code(s): R93.5 - ABN FINDINGS ON DX IMAGING OF ABD REGIONS, INC RETROPERITON - Discharge Disposition: [facility] Condition: Fair Prescriptions: New Enoxaparin Sodium [Enoxaparin Sodium] 40 mg SQ DAILY Famotidine 20 mg [Pepcid 20 MG] 20 mg PO BID tablet Acetaminophen 325 mg [Tylenol 325 mg] 650 mg PO Q6H PRN PRN tablet PRN Reason: Pain, Fever, Headache Ondansetron HCl 4 mg/2 ml [Zofran 4 MG/2 ML VIAL] 4 mg IV Q6H PRN PRN PRN Reason: Nausea/Vomiting Continue Levothyroxine Sodium 50 Mcg [Synthroid 50 Mcg] 50 mcg PO 0700 Amlodipine Besylate 5 mg [Norvasc 5 mg] 5 mg PO DAILY Irbesartan 300 mg PO DAILY Trazodone HCl 50 mg [Desyrel 50 mg] 50 mg PO HS Discontinued Atorvastatin Calcium [Lipitor] 20 mg PO DAILY Follow up with: SP CALDERÓN MD [Primary Care Provider] -
[2023-01-19 05:35] LABS: ALBUMIN 3.3 g/dL (3.5-5.0); ANION GAP 10.2 MEQ/L (5-15); BILIRUBIN,TOTAL 0.8 mg/dL (0.2-1.3); Calcium 7.9 mg/dL (8.4-10.2); Creatinine 1 1.17 mg/dL (0.66-1.25); EST GLOMERULAR FILTRATION RATE 61.5 ML/MIN; Potassium 4.6 mmol/L (3.5-5.1); Total Protein 6.9 g/dL (6.3-8.2)
[2023-01-19] MEDS: SYNTHROID 50 MCG PO SCH (08:13)
[2023-01-19] MEDS: TYLENOL 325 MG PO PRN (08:17)
[2023-01-19] MEDS ORDERED: Sodium Chloride 0.9% 1000 ML 1,000 ML IV SCH (08:30)
[2023-01-19 08:46] VITALS: RESP 18
--- NOTE | 2023-01-19 09:13 | XRAY ---
Indication: Fever and cough. Comparison: January 17, 2023 Portable apical lordotic chest again hyperinflated without focal infiltrate, consolidation, or large effusion. Heart not enlarged. Bony thorax intact again with osteopenia and mild degenerative changes. Impression: Nonacute chest with chronic features.
[2023-01-19] MEDS ORDERED: TOLVAPTAN PO SCH (10:00)
[2023-01-19] MEDS: ENOXAPARIN SODIUM SQ SCH (10:28)
[2023-01-19] MEDS: NORVASC 5 MG PO SCH (10:28)
[2023-01-19] MEDS: Pepcid 20 MG PO SCH (10:29)
[2023-01-19] MEDS: ZOCOR 20MG PO SCH (10:29)
[2023-01-19 11:57] VITALS: BP 113/56; PULSE 75; TEMP 97.7; O2SAT 90
== END 2023-01-19 12:56 | disposition short-term general hospital (02) | DRG 641 ==
LOC: ED 11:33 → MED SURG 16:34 → OBSVTOIN 01-16 15:00
PROVIDERS: ADMIT Internal Medicine; ATTEND Internal Medicine
DX: E87.1 Hypo-osmolality and hyponatremia (principal); R53.1 Weakness; R53.83 Other fatigue; R93.5 Abnormal findings on diagnostic imaging of other abdominal regions, including retroperitoneum; R06.02 Shortness of breath; N28.9 Disorder of kidney and ureter, unspecified; I10 Essential (primary) hypertension; R19.7 Diarrhea, unspecified; Z85.038 Personal history of other malignant neoplasm of large intestine; Z79.899 Other long term (current) drug therapy; Z20.828 Contact with and (suspected) exposure to other viral communicable diseases
CPT/HCPCS: 0241U; 36000; 36415; 71045; 71260; 74177; 80048; 80053; 81001; 82378; 83605; 83880; 84145; 84484; 85025; 85027; 86301; 87040; 93005; 93041; 93268; 94760; 96360; 99285; J1650; Q3014; A9270-GY; G0378

== ENCOUNTER 2023-01-28 17:01 | Observation (INO) | payer MEDICARE ==
[2023-01-28] MEDS ORDERED: Sodium Chloride 0.9% 1000 ML 1,000 ML IV STA (17:38)
[2023-01-28 17:47] LABS: Hematocrit 38.4 % (42-50); Hemoglobin 12.6 g/dL (12.5-18.0); Mean Corpuscular Hemoglobin 30.5 pg (26-32); Mean Corpuscular Hgb Concent. 32.8 g/dL (32-36); Mean Platelet Volume 9.1 fL (7.5-11.0); Platelet Count 220 x10^3/uL (150-450); Red Blood Count 4.13 x10^6/uL (4.1-5.6); Red Cell Distribution Width 13.5 % (11.5-14.0); White Blood Count 9.9 x10^3/uL (4.0-10.5)
--- NOTE | 2023-01-28 17:54 | ERPHSYRPT ---
- History of Present Illness Time Seen by Provider: 01/28/23 17:51 Patient Subjective Stated Complaint: Pt was at [facility] last week and spent 3 days here and was transfered to [place] and spent 4 days there and was discharged 2 days ago, pt had been admitted due to low sodium, pt was discharged at the low normal sodium and since he has gotten home he has gotten extremely weak and tired and no appetite Triage Nursing Assessment: Pt brought to the ER by his son, hypertensive, denies pain, no appetite, tired, laying with eyes clothes, pulses normal, skin sallow, pt refused to walk today, he walks with a walker since coming home from the hospital a couple of days ago, no difficulty breathing Physician History: bring baby back to the emergency room. Patient is 82-year-old male with significant past medical history of hypertension. 2 weeks ago patient was admitted here at [facility] with severe hyponatremia afterward patient was transferred to [facility] where patient underwent further workup which reveals abdominal lymphadenopathy and renal insufficiency. During hospital course patient was running high fever. Multiple diagnostic tests were done but at that time unable to determine the cause of fever. Patient was discharged 2 days ago from [facility] was advised to hold the blood pressure medicine because of very low blood pressure at the hospital. But today patient is very weak and lethargic he was unable to get out of the bed and his blood pressure started running high so son brought her into the emergency room. Timing/Duration: today Severity: moderate Associated Symptoms: denies symptoms Allergies/Adverse Reactions: No Known Drug Allergies Allergy (Verified 01/28/23 17:40) Home Medications: Amlodipine Besylate 5 mg [Norvasc 5 mg] 5 mg PO DAILY 01/14/19 [History] Irbesartan 300 mg PO DAILY 01/14/19 [History] Levothyroxine Sodium 50 Mcg [Synthroid 50 Mcg] 50 mcg PO 0700 01/14/19 [History] Trazodone HCl 50 mg [Desyrel 50 mg] 75 mg PO HS 01/15/23 [History] Atorvastatin Calcium 40 mg PO DAILY 01/28/23 [History] oxyBUTYnin chloride [Oxybutynin Chloride] 5 mg PO DAILY 01/28/23 [History] Hx Tetanus, Diphtheria Vaccination/Date Given: Yes Hx Influenza Vaccination/Date Given: No Hx Pneumococcal Vaccination/Date Given: No Travel Risk - International Travel Have you traveled outside of the country in past 3 weeks: No - Coronavirus Screening Are you exhibiting any of the following symptoms?: No Close contact with a COVID-19 positive Pt in past 14-21 Days: No - Vaccine Status Have you recieved a Covid-19 vaccination: Yes Medical Records Auditor: Moderna - Vaccination Dates Date of 2cond Vaccination (if applicable): 2020 - Review of Systems Constitutional: Lethargy, Malaise, Weakness, No Fever, No Chills Eyes: No Symptoms Ears, Nose, & Throat: No Symptoms Respiratory: No Cough, No Dyspnea Cardiac: Edema, No Chest Pain, No Syncope Abdominal/Gastrointestinal: No Abdominal Pain, No Nausea, No Vomiting, No D iarrhea Genitourinary Symptoms: No Dysuria Musculoskeletal: No Back Pain, No Neck Pain Skin: No Rash Neurological: No Dizziness, No Focal Weakness, No Sensory Changes Psychological: No Symptoms Endocrine: No Symptoms All Other Systems: Reviewed and Negative - Past Medical History Pertinent Past Medical History: Yes Neurological History: No Pertinent History ENT History: Cataracts Cardiac History: High Cholesterol, Hypertension Respiratory History: No Pertinent History Endocrine Medical History: Hypothyroidism Musculoskeletal History: No Pertinent History GI Medical History: Colorectal Cancer History: No Pertinent History Psycho-Social History: No Pertinent History Male Reproductive Disorders: Prostate Problems Other Medical History: hx colon ca - Past Surgical History Past Surgical History: Yes (colon CA) Neuro Surgical History: No Pertinent History Cardiac: No Pertinent History Respiratory: No Pertinent History Gastrointestinal: Appendectomy, Cholecystectomy, Colon Resection Genitourinary: No Pertinent History Musculoskeletal: No Pertinent History Male Surgical History: No Pertinent History Other Surgical History: port placement and removal - Social History Smoking Status: Never smoker Exposure to second hand smoke: No Drug Use: none Patient Lives Alone: Yes - Nursing Vital Signs Nursing Vital Signs: Initial Vital Signs Temperature 96.9 F 01/28/23 17:13 Pulse Rate 84 01/28/23 17:13 Respiratory Rate 19 01/28/23 17:13 Blood Pressure 151/70 01/28/23 17:13 O2 Sat by Pulse Oximetry 98 01/28/23 17:13 Pain Scale Pain Intensity 0 - Physical Exam General Appearance: mild distress, alert Eye Exam: PERRL/EOMI, eyes nml inspection Ears, Nose, Throat Exam: normal ENT inspection, TMs normal, pharynx normal, mois t mucous membranes Neck Exam: normal inspection, non-tender, supple, full range of motion Respiratory Exam: diminished breath sounds, crackles/rales, rhonchi, No respiratory distress Cardiovascular Exam: regular rate/rhythm, normal heart sounds, normal peripheral pulses Gastrointestinal/Abdomen Exam: soft, normal bowel sounds, No tenderness, No mass Back Exam: normal inspection, normal range of motion, No CVA tenderness, No vertebral tenderness Extremity Exam: normal inspection, normal range of motion, pelvis stable Neurologic Exam: alert, oriented x 3, cooperative, normal mood/affect, nml cerebellar function, nml station & gait, sensation nml, No motor deficits Skin Exam: normal color, warm, dry, No rash Lymphatic Exam: No adenopathy SpO2: 98 - Course Nursing assessment & vital signs reviewed: Yes EKG Interpreted by Me: Sinus Rhythm, Non-specific ST Changes Ordered Tests: Active Orders 24 hr Category Date Time Status CHEST 1 VIEW (PORTABLE) Stat Exams 01/28/23 17:39 Taken AMYLASE Stat Lab 01/28/23 17:30 Completed CBC W DIFF Stat Lab 01/28/23 17:30 Completed CMP Stat Lab 01/28/23 17:30 Completed LIPASE Stat Lab 01/28/23 17:30 Completed Lactic Acid Stat Lab 01/28/23 17:38 Completed Manual Differential NC Stat Lab 01/28/23 17:30 Completed TROPONIN Stat Lab 01/28/23 17:30 Completed UA W/RFX UR CULTURE Stat Lab 01/28/23 17:39 Ordered Medication Summary Discontinued Medications Generic Name Dose Route Start Last Admin Trade Name Usha PRN Reason Stop Dose Admin Sodium Chloride 1,000 mls @ 999 mls/hr 01/28/23 17:38 01/28/23 17:58 Sodium Chloride 0.9% 1000 Ml IV 01/28/23 18:38 999 mls/hr .Q1H1M STA Administration Sodium Chloride Confirm 01/28/23 17:56 Sodium Chloride 0.9% 1000 Ml Administered 01/28/23 17:57 Dose 1,000 mls @ ud .ROUTE .STK-MED ONE Lab/Rad Data: Laboratory Result Diagrams 01/28/23 17:30 01/28/23 17:30 Laboratory Results 01/28/23 01/28/23 01/28/23 Range/Units 17:38 17:30 17:30 WBC 9.9 (4.0-10.5) x10^3/uL RBC 4.13 (4.1-5.6) x10^6/uL Hgb 12.6 (12.5-18.0) g/dL Hct 38.4 L (42-50) % MCV 93.0 (78-100) fL MCH 30.5 (26-32) pg MCHC 32.8 (32-36) g/dL RDW 13.5 (11.5-14.0) % Plt Count 220 (150-450) x10^3/uL MPV 9.1 (7.5-11.0) fL Sodium 131 L (137-145) mmol/L Potassium 4.7 (3.5-5.1) mmol/L Chloride 103 (98-107) mmol/L Carbon Dioxide 20 L (22-30) mmol/L Anion Gap 12.1 (5-15) MEQ/L BUN 24 H (9-20) mg/dL Creatinine 1.29 H (0.66-1.25) mg/dL Estimated GFR 54.7 ML/MIN Glucose 107 H (74-106) mg/dL Lactic Acid 2.1 H (0.4-2.0) Calcium 8.4 (8.4-10.2) mg/dL Total Bilirubin 1.00 (0.2-1.3) mg/dL AST 144 H (17-59) U/L ALT 71 H (0-50) U/L Alkaline Phosphatase 103 (38-126) U/L Troponin I 0.013 (0.000-0.034) ng/mL Serum Total Protein 8.6 H (6.3-8.2) g/dL Albumin 3.8 (3.5-5.0) g/dL Amylase 78 (30-110) U/L Lipase 152 (23-300) U/L - Progress Progress: unchanged Discussed with : Other (Dr Cantor) Will see patient in: hospital (observation) Medical Desision Making - Discussion of managment Care discussed with:: hospitalist Reviewed:: Test results, Need for additional workup Agreed on:: Treatment plan, decision to admit, place in obs - Diagnostic Testing Diagnostic test were ordered, analyzed, and reviewed by me: Yes Radiological Interpretation: Reviewed by me - Risk of complications The pt has a mod risk of morbidity or mortality based on: Need for minor surgical intervention in patient with know risk factors - Departure Departure Disposition: Observation Clinical Impression: Acute renal insufficiency, Hyponatremia Diarrhea Qualifiers: Diarrhea type: unspecified type Qualified Code(s): R19.7 - Diarrhea, unspecified Condition: Fair Critical Care Time: Yes Critical Care Time(excluding separately billable procedures): Critical 30-74 mins Referrals: SP CALDERÓN MD [Primary Care Provider] - Follow up/PCP as directed
[2023-01-28] MEDS ORDERED: Sodium Chloride 0.9% 1000 ML 1,000 ML ONE (17:56)
[2023-01-28 18:13] LABS: ALBUMIN 3.8 g/dL (3.5-5.0); ANION GAP 12.1 MEQ/L (5-15); Calcium 8.4 mg/dL (8.4-10.2); Creatinine 1 1.29 mg/dL (0.66-1.25); EST GLOMERULAR FILTRATION RATE 54.7 ML/MIN; Potassium 4.7 mmol/L (3.5-5.1); TROPONIN 0.013 ng/mL (0.000-0.034); Total Protein 8.6 g/dL (6.3-8.2)
[2023-01-28 20:01] LABS: Lymphocytes 45 % (24-44); Monocyte 3 % (0.0-12.0); Neutrophils 52 % (36.-66.); Platelet Estimate NORMAL (NORMAL); Total Cells Counted 100
[2023-01-28] MEDS ORDERED: Sodium Chloride 0.9% 1000 ML 1,000 ML IV SCH (21:00)
--- NOTE | 2023-01-28 21:04 | PCM.HP ---
History of Present Illness - Chief Complaint Chief Complaint: weakness, hypontremia, renal insufficiency History of Present Illness: 82 yo wm with hx HTN, Hypothyroidism, HLP admitted for weakness. Pt was admitted for similar sxs along with hyponatremia earlier this month. He was sent to OSH for work-up on abd LAD. He also had B sxs of night time fevers and marked weight loss. He was sent home after fevers improved and his Na was better with fl restriction plus samsa. He saw the oncologist and PET was ordered as LAD was a challenge to biopsy based on location. Pt at home continued to be weak with anorexia. He has maintained fluid restriction. He presented with weakness and hyponatremia/NELDA. He has not had fevers at home. - Review of Systems Constitutional: Fever, Night Sweats, Weakness Eyes: No Symptoms, Foreign Body Sensation Ears, Nose, & Throat: No Symptoms Respiratory: No Symptoms Cardiac: No Symptoms Abdominal/Gastrointestinal: No Symptoms Genitourinary Symptoms: No Symptoms Musculoskeletal: No Symptoms Skin: No Symptoms Neurological: No Symptoms Medications & Allergies Home Medications: Home Medication List Amlodipine Besylate 5 mg [Norvasc 5 mg] 5 mg PO DAILY 01/14/19 [History Confirmed 01/28/23] Irbesartan 300 mg PO DAILY 01/14/19 [History Confirmed 01/28/23] Levothyroxine Sodium 50 Mcg [Synthroid 50 Mcg] 50 mcg PO 0700 01/14/19 [History Confirmed 01/28/23] Trazodone HCl 50 mg [Desyrel 50 mg] 75 mg PO HS 01/15/23 [History Confirmed 01/28/23] Atorvastatin Calcium 40 mg PO DAILY 01/28/23 [History Confirmed 01/28/23] oxyBUTYnin chloride [Oxybutynin Chloride] 5 mg PO DAILY 01/28/23 [History Confirmed 01/28/23] Allergies/Adverse Reactions: Allergies Allergy/AdvReac Type Severity Reaction Status Date / Time No Known Drug Allergies Allergy Verified 01/28/23 17:40 - Past Medical History Past Medical History: Yes Neurological History: No Pertinent History ENT History: Cataracts Cardiac History: High Cholesterol, Hypertension Respiratory History: No Pertinent History Endocrine Medical History: Hypothyroidism Musculoskelatal History: No Pertinent History GI Medical History: Colorectal Cancer History: No Pertinent History Pyscho-Social History: No Pertinent History Male Reproductive Disorders: Prostate Problems Comment: hx colon ca - Past Surgical History Past Surgical History: Yes (colon CA) Neuro Surgical History: No Pertinent History Cardiac History: No Pertinent History Respiratory Surgery: No Pertinent History GI Surgical History: Appendectomy, Cholecystectomy, Colon Resection Genitourinary Surgical Hx: No Pertinent History Musculskeletal Surgical Hx: No Pertinent History Male Surgical History: No Pertinent History Other Surgical History: port placement and removal - Social History Smoking Status: Never smoker Exposure to second hand smoke: No Alcohol: None Drug Use: none - Physical Exam Vital Signs: Vital Signs - 24 hr Temp Pulse Resp BP BP Pulse Ox 01/28/23 19:25 98 01/28/23 18:00 83 24 148/66 95 01/28/23 17:30 86 29 H 133/63 96 01/28/23 17:13 96.9 F 84 19 151/70 98 General Appearance: no apparent distress Neurologic Exam: alert, oriented x 3 Eye Exam: PERRL/EOMI, eyes nml inspection Ears, Nose, Throat Exam: pharynx normal, dry mucous membranes Neck Exam: normal inspection Respiratory Exam: normal breath sounds Cardiovascular Exam: regular rate/rhythm, normal heart sounds Gastrointestinal/Abdomen Exam: soft, normal bowel sounds, No tenderness, No distention Extremity Exam: normal inspection Skin Exam: normal color, warm Results - Labs Lab/Micro Results: Lab Results-Last 24 Hours 01/28/23 01/28/23 01/28/23 Range/Units 17:30 17:30 17:38 WBC 9.9 (4.0-10.5) x10^3/uL RBC 4.13 (4.1-5.6) x10^6/uL Hgb 12.6 (12.5-18.0) g/dL Hct 38.4 L (42-50) % MCV 93.0 (78-100) fL MCH 30.5 (26-32) pg MCHC 32.8 (32-36) g/dL RDW 13.5 (11.5-14.0) % Plt Count 220 (150-450) x10^3/uL MPV 9.1 (7.5-11.0) fL Segmented Neutrophils 52 (36.-66.) % Lymphocytes (Manual) 45 H (24-44) % Monocytes (Manual) 3 (0.0-12.0) % Platelet Estimate NORMAL (NORMAL) RBC Morphology NORMAL Sodium 131 L (137-145) mmol/L Potassium 4.7 (3.5-5.1) mmol/L Chloride 103 (98-107) mmol/L Carbon Dioxide 20 L (22-30) mmol/L Anion Gap 12.1 (5-15) MEQ/L BUN 24 H (9-20) mg/dL Creatinine 1.29 H (0.66-1.25) mg/dL Estimated GFR 54.7 ML/MIN Glucose 107 H (74-106) mg/dL Lactic Acid 2.1 H (0.4-2.0) Calcium 8.4 (8.4-10.2) mg/dL Total Bilirubin 1.00 (0.2-1.3) mg/dL AST 144 H (17-59) U/L ALT 71 H (0-50) U/L Alkaline Phosphatase 103 (38-126) U/L Troponin I 0.013 (0.000-0.034) ng/mL Serum Total Protein 8.6 H (6.3-8.2) g/dL Albumin 3.8 (3.5-5.0) g/dL Amylase 78 (30-110) U/L Lipase 152 (23-300) U/L - Radiology Impressions Radiology Exams & Impressions: Radiology Procedures Category Date Time Status CHEST 1 VIEW (PORTABLE) Stat Exams 01/28/23 17:39 Taken - Other Procedures and Tests Respiratory Therapy 01/28/23 19:37 Oxygen Nasal Cannula 2 lpm Assessment/Plan (1) Acute renal insufficiency Current Visit: Yes Status: Acute Assessment & Plan: 1. NELDA: suspect pre-renal. Urine lytes ordered. NS slowly. Repeat Na later tonight. 2. Hyponatremia: prior hx. 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 ? related to abd process/LAD. Now appears pre-renal. Urine lytes ordered. NS at 50 cc/hr. Na in 4 hours. Will continue fl restriction thereafter. 3. Abd LAD: outpt PET ordered. 4. HTN: holding medications given NELDA. 5. FEN: oral diet 6. Social: will need home health. 7. PX: Jose Eduardo Cantor MD entire encounter done via telemedicine Code(s): N28.9 - DISORDER OF KIDNEY AND URETER, UNSPECIFIED Telemedicine Encounter - Telemedicine Encounter Telemedicine Encounter: The entirety of this encounter was performed via Telemedicine"
--- NOTE | 2023-01-28 21:06 | XRAY ---
Indication: Weakness. Comparison: January 19, 2023 Portable chest again hyperinflated and clear. Heart not enlarged. Bony thorax intact again with osteopenia and mild degenerative changes. Impression: Continuing acute chest with chronic features.
[2023-01-28] MEDS ORDERED: DESYREL 50 MG PO SCH (22:00)
[2023-01-29 01:20] LABS: Appearance Cloudy (Clear); Bacteria None Seen /HPF (None Seen); Bilirubin Small (Negative); Blood Small (Negative); Epithelial Cells Rare /HPF (None Seen); Glucose, Urine Negative (Negative); Ketones Negative (Negative); Leukocyte Esterase Negative (Negative); Nitrite Negative (Negative); Protein,Urine Dip 30 (Negative); Specific Gravity 1.025 (1.005-1.030); Urobilinogen 0.2 mg/dL (0.2)
[2023-01-29 01:29] LABS: ADD URINE CULTURE? YES (NO); Granular Casts 0-2 /LPF (None Seen); Mucus Moderate /HPF (NEGATIVE)
[2023-01-29 02:05] LABS: 027 TOX PROD PRESUMPTIVE NEGATIVE (NEGATIVE); TOXIGENIC C. DIFF ORG NEGATIVE (NEGATIVE)
[2023-01-29 06:09] LABS: Absolute Neutrophil Ct (ANC) 6.31 x10^3/uL (1.4-6.9); BASOPHIL % 0.2 % (0.0-0.4); Basophil (Absolute #) 0.02 x10^3/uL (0-0.4); Eosinophil % 0.1 % (0.00-5.0); Eosinophil (Absolute #) 0.01 x10^3/uL (0-0.5); Hematocrit 35.1 % (42-50); Hemoglobin 11.4 g/dL (12.5-18.0); IMMATURE GRAN # 0.07 x10^3u/L (0.00-0.03); IMMATURE GRAN % 0.7 % (0.00-0.4); Lymphocyte (Absolute #) 2.41 x10^3/uL (1.0-4.6); Lymphocytes % 25.4 % (24.0-44.0); Mean Cell Volume 94.4 fL (78-100); Mean Corpuscular Hemoglobin 30.6 pg (26-32); Mean Corpuscular Hgb Concent. 32.5 g/dL (32-36); Mean Platelet Volume 9.4 fL (7.5-11.0); Monocyte (Absolute #) 0.66 x10^3/uL (0.0-1.3); Neutrophil % 66.6 % (36.0-66.0); Platelet Count 212 x10^3/uL (150-450); Red Blood Count 3.72 x10^6/uL (4.1-5.6); Red Cell Distribution Width 13.6 % (11.5-14.0); White Blood Count 9.5 x10^3/uL (4.0-10.5)
[2023-01-29 06:30] LABS: ANION GAP 10.1 MEQ/L (5-15); Calcium 7.6 mg/dL (8.4-10.2); Creatinine 1 1.17 mg/dL (0.66-1.25); EST GLOMERULAR FILTRATION RATE 61.5 ML/MIN; Potassium 4.1 mmol/L (3.5-5.1)
[2023-01-29] MEDS: SYNTHROID 50 MCG PO SCH (07:45)
[2023-01-29] MEDS: IMODIUM 2 MG PO PRN ×2 (07:45→10:37)
--- NOTE | 2023-01-29 09:30 | PCM.NOTE ---
Date and Time: 01/29/23919 Subjective Assessment: 01/29/23 Mr. Hadley is an 82 yo male with PMHX of HTN, hypothyroidism, hyperlipidemia, colorectal CA, prostate problems, and chronic hyponatremia. He was admitted for weakness, hyponatremia, NELDA, and diarrhea. Pt was admitted for similar sxs along with hyponatremia earlier this month and tx to [facility]. At that time he was also having night time fevers and marked weight loss. He was sent home after fevers improved and his Na+ was better with fluid restriction plus samsa. He saw the oncologist OP and PET was ordered as LAD was a challenge to biopsy based on location. Pt at home continued to be weak with anorexia. He has maintained fluid restriction. He presented with weakness and hyponatremia/NELDA. He has not had fevers since being home. He reports chronic diarrhea and has not been taking anything at home for this. C-dif testing was negative and Imodium started. NELDA has resolved since admission. Sodium is 131 and this is mild and chronic. C02 low most likely r/t chronic diarrhea. He will need a PT and OT eval. Family would like placement per nursing staff as they are unable to care for him at home. Discussed with case management. He denies CP, SOB, abd. pain, N/V. <TEENA MURPHY - Last Filed: 01/29/23 09:20> Date and Time: 01/29/23 1720 <MARJORIE LOUIS - Last Filed: 01/29/23 17:22> - Review of Systems Constitutional: Fatigue, Weakness, Weight Loss, No Fever, No Chills Eyes: No Symptoms Ears, Nose, & Throat: No Symptoms Respiratory: No Cough, No Short Of Breath Cardiac: No Chest Pain, No Edema, No Syncope Abdominal/Gastrointestinal: Diarrhea, No Abdominal Pain, No Nausea, No Vomiting Genitourinary Symptoms: No Dysuria Musculoskeletal: No Back Pain, No Neck Pain Skin: Other (redness of buttock from diarrhea, small lesion on coxxyx that is split- pic in chart), No Rash Neurological: No Dizziness, No Focal Weakness, No Sensory Changes Psychological: No Symptoms Endocrine: No Symptoms Hematologic/Lymphatic: No Symptoms Immunological/Allergic: No Symptoms <TEENA MURPHY - Last Filed: 01/29/23 09:20> Objective Exam General Appearance: no apparent distress, alert Neurologic Exam: alert, oriented x 3, cooperative, normal mood/affect, nml ce rebellar function, sensation nml, No motor deficits Skin Exam: normal color, warm, dry, other (redness of buttock from diarrhea, small lesion on coxxyx that is split- pic in chart) Wound Assessment: Skin/Wound Assessment Wound/Incision Assessment Start: 01/28/23 21:11 Text: Status: Active Freq: Q6H Protocol: Document 01/29/23 09:00 RF (Rec: 01/29/23 09:12 RF [id number]) Wound/Incision Assessment Medial Coccyx Wound Type Skin Tear Wound Stage Non Pressure Wound Drainage Amount None General Appearance Well Approximated Comment barrier cream applied Wound Photo Photo Taken Yes Date: 01/28/23 Time: 20:30 Eye Exam: PERRL, EOMI, eyes nml inspection Ears, Nose, Throat Exam: normal ENT inspection, pharynx normal, moist mucous membranes Neck Exam: normal inspection, non-tender, supple, full range of motion Respiratory Exam: normal breath sounds, lungs clear, No respiratory distress Cardiovascular Exam: regular rate/rhythm, normal heart sounds Gastrointestinal/Abdomen Exam: soft, No tenderness, No mass Extremity Exam: normal inspection, normal range of motion Back Exam: normal inspection, normal range of motion, No CVA tenderness, No vertebral tenderness Male Genitalia Exam: deferred Rectal Exam: deferred <TEENA MURPHY - Last Filed: 01/29/23 09:20> Wound Assessment: Skin/Wound Assessment Wound/Incision Assessment Start: 01/28/23 21:11 Text: Status: Active Freq: Q6H Protocol: Document 01/29/23 15:00 RF (Rec: 01/29/23 15:41 RF [id number]) Wound/Incision Assessment Medial Coccyx Wound Assessment Shift Assessment Wound Type Skin Tear Wound Stage Non Pressure Wound Drainage Amount None General Appearance Well Approximated Comment barrier cream applied Wound Photo Photo Taken Yes Date: 01/28/23 Time: 20:30 <MARJORIE LOUIS - Last Filed: 01/29/23 17:22> OBJECTIVE DATA Vital Signs: Vital Signs - 24 hr Temp Pulse Resp BP BP Pulse Ox 01/29/23 08:00 16 01/29/23 07:41 98.6 F 86 16 130/60 97 01/29/23 07:10 96 01/29/23 04:00 98.4 F 85 22 119/59 95 01/29/23 00:16 100.2 F 01/28/23 23:48 16 01/28/23 23:24 99.0 F 82 17 133/65 96 01/28/23 20:52 98.5 F 81 16 123/58 96 01/28/23 19:37 70 01/28/23 19:25 98 01/28/23 18:00 83 24 148/66 95 01/28/23 17:30 86 29 H 133/63 96 01/28/23 17:13 96.9 F 84 19 151/70 98 Pain Assessment - Last Documented Pain Intensity 0 Intake and Output: Intake & Output 01/26/23 01/27/23 01/28/23 01/29/23 11:59 11:59 11:59 11:59 Intake Total 796 Output Total 525 Balance 271 Weight 75.4 kg Lab Results: Lab Results-Last 24 Hours 01/28/23 01/28/23 01/28/23 Range/Units 17:30 17:30 17:38 WBC 9.9 (4.0-10.5) x10^3/uL RBC 4.13 (4.1-5.6) x10^6/uL Hgb 12.6 (12.5-18.0) g/dL Hct 38.4 L (42-50) % MCV 93.0 (78-100) fL MCH 30.5 (26-32) pg MCHC 32.8 (32-36) g/dL RDW 13.5 (11.5-14.0) % Plt Count 220 (150-450) x10^3/uL MPV 9.1 (7.5-11.0) fL Gran % (36.0-66.0) % Immature Gran % (Auto) (0.00-0.4) % Nucleat RBC Rel Count (0.00-0.1) % Eos # (Auto) (0-0.5) x10^3/uL Immature Gran # (Auto) (0.00-0.03) x10^3u/L Absolute Lymphs (auto) (1.0-4.6) x10^3/uL Absolute Monos (auto) (0.0-1.3) x10^3/uL Absolute Nucleated RBC (0.00-0.01) x10^3u/L Lymphocytes % (24.0-44.0) % Monocytes % (0.0-12.0) % Eosinophils % (0.00-5.0) % Basophils % (0.0-0.4) % Absolute Granulocytes (1.4-6.9) x10^3/uL Segmented Neutrophils 52 (36.-66.) % Lymphocytes (Manual) 45 H (24-44) % Monocytes (Manual) 3 (0.0-12.0) % Basophils # (0-0.4) x10^3/uL Platelet Estimate NORMAL (NORMAL) RBC Morphology NORMAL Sodium 131 L (137-145) mmol/L Potassium 4.7 (3.5-5.1) mmol/L Chloride 103 (98-107) mmol/L Carbon Dioxide 20 L (22-30) mmol/L Anion Gap 12.1 (5-15) MEQ/L BUN 24 H (9-20) mg/dL Creatinine 1.29 H (0.66-1.25) mg/dL Estimated GFR 54.7 ML/MIN Glucose 107 H (74-106) mg/dL POC Glucometer (74 to 106) mg/dL Lactic Acid 2.1 H (0.4-2.0) Calcium 8.4 (8.4-10.2) mg/dL Total Bilirubin 1.00 (0.2-1.3) mg/dL AST 144 H (17-59) U/L ALT 71 H (0-50) U/L Alkaline Phosphatase 103 (38-126) U/L Troponin I 0.013 (0.000-0.034) ng/mL Serum Total Protein 8.6 H (6.3-8.2) g/dL Albumin 3.8 (3.5-5.0) g/dL Amylase 78 (30-110) U/L Lipase 152 (23-300) U/L Urine Color (Yellow) Urine Appearance (Clear) Urine pH (4.6-8.0) Ur Specific Willard (1.005-1.030) Urine Protein (Negative) Urine Glucose (UA) (Negative) mg/dL Urine Ketones (Negative) Urine Blood (Negative) Urine Nitrite (Negative) Urine Bilirubin (Negative) Urine Urobilinogen (0.2) mg/dL Ur Leukocyte Esterase (Negative) U Hyaline Cast (Auto) (0-2) /LPF Urine Microscopic RBC (0-5) /HPF Urine Microscopic WBC (0-5) /HPF Ur Epithelial Cells (None Seen) /HPF Urine Bacteria (None Seen) /HPF Granular Casts (None Seen) /LPF Urine Mucus (NEGATIVE) /HPF Urine Culture Reflexed (NO) Urine Sodium (30-90) mmol/L C. difficile Screen (NEGATIVE) C.difficile 027-NAP1-B1 (NEGATIVE) 01/28/23 01/28/23 01/28/23 Range/Units 19:49 21:08 23:52 WBC (4.0-10.5) x10^3/uL RBC (4.1-5.6) x10^6/uL Hgb (12.5-18.0) g/dL Hct (42-50) % MCV (78-100) fL MCH (26-32) pg MCHC (32-36) g/dL RDW (11.5-14.0) % Plt Count (150-450) x10^3/uL MPV (7.5-11.0) fL Gran % (36.0-66.0) % Immature Gran % (Auto) (0.00-0.4) % Nucleat RBC Rel Count (0.00-0.1) % Eos # (Auto) (0-0.5) x10^3/uL Immature Gran # (Auto) (0.00-0.03) x10^3u/L Absolute Lymphs (auto) (1.0-4.6) x10^3/uL Absolute Monos (auto) (0.0-1.3) x10^3/uL Absolute Nucleated RBC (0.00-0.01) x10^3u/L Lymphocytes % (24.0-44.0) % Monocytes % (0.0-12.0) % Eosinophils % (0.00-5.0) % Basophils % (0.0-0.4) % Absolute Granulocytes (1.4-6.9) x10^3/uL Segmented Neutrophils (36.-66.) % Lymphocytes (Manual) (24-44) % Monocytes (Manual) (0.0-12.0) % Basophils # (0-0.4) x10^3/uL Platelet Estimate (NORMAL) RBC Morphology Sodium 131 L (137-145) mmol/L Potassium (3.5-5.1) mmol/L Chloride (98-107) mmol/L Carbon Dioxide (22-30) mmol/L Anion Gap (5-15) MEQ/L BUN (9-20) mg/dL Creatinine (0.66-1.25) mg/dL Estimated GFR ML/MIN Glucose (74-106) mg/dL POC Glucometer 93 (74 to 106) mg/dL Lactic Acid 1.6 (0.4-2.0) Calcium (8.4-10.2) mg/dL Total Bilirubin (0.2-1.3) mg/dL AST (17-59) U/L ALT (0-50) U/L Alkaline Phosphatase (38-126) U/L Troponin I (0.000-0.034) ng/mL Serum Total Protein (6.3-8.2) g/dL Albumin (3.5-5.0) g/dL Amylase (30-110) U/L Lipase (23-300) U/L Urine Color (Yellow) Urine Appearance (Clear) Urine pH (4.6-8.0) Ur Specific Willard (1.005-1.030) Urine Protein (Negative) Urine Glucose (UA) (Negative) mg/dL Urine Ketones (Negative) Urine Blood (Negative) Urine Nitrite (Negative) Urine Bilirubin (Negative) Urine Urobilinogen (0.2) mg/dL Ur Leukocyte Esterase (Negative) U Hyaline Cast (Auto) (0-2) /LPF Urine Microscopic RBC (0-5) /HPF Urine Microscopic WBC (0-5) /HPF Ur Epithelial Cells (None Seen) /HPF Urine Bacteria (None Seen) /HPF Granular Casts (None Seen) /LPF Urine Mucus (NEGATIVE) /HPF Urine Culture Reflexed (NO) Urine Sodium (30-90) mmol/L C. difficile Screen (NEGATIVE) C.difficile 027-NAP1-B1 (NEGATIVE) 01/28/23 01/28/23 01/29/23 Range/Units 23:53 23:53 01:19 WBC (4.0-10.5) x10^3/uL RBC (4.1-5.6) x10^6/uL Hgb (12.5-18.0) g/dL Hct (42-50) % MCV (78-100) fL MCH (26-32) pg MCHC (32-36) g/dL RDW (11.5-14.0) % Plt Count (150-450) x10^3/uL MPV (7.5-11.0) fL Gran % (36.0-66.0) % Immature Gran % (Auto) (0.00-0.4) % Nucleat RBC Rel Count (0.00-0.1) % Eos # (Auto) (0-0.5) x10^3/uL Immature Gran # (Auto) (0.00-0.03) x10^3u/L Absolute Lymphs (auto) (1.0-4.6) x10^3/uL Absolute Monos (auto) (0.0-1.3) x10^3/uL Absolute Nucleated RBC (0.00-0.01) x10^3u/L Lymphocytes % (24.0-44.0) % Monocytes % (0.0-12.0) % Eosinophils % (0.00-5.0) % Basophils % (0.0-0.4) % Absolute Granulocytes (1.4-6.9) x10^3/uL Segmented Neutrophils (36.-66.) % Lymphocytes (Manual) (24-44) % Monocytes (Manual) (0.0-12.0) % Basophils # (0-0.4) x10^3/uL Platelet Estimate (NORMAL) RBC Morphology Sodium (137-145) mmol/L Potassium (3.5-5.1) mmol/L Chloride (98-107) mmol/L Carbon Dioxide (22-30) mmol/L Anion Gap (5-15) MEQ/L BUN (9-20) mg/dL Creatinine (0.66-1.25) mg/dL Estimated GFR ML/MIN Glucose (74-106) mg/dL POC Glucometer (74 to 106) mg/dL Lactic Acid (0.4-2.0) Calcium (8.4-10.2) mg/dL Total Bilirubin (0.2-1.3) mg/dL AST (17-59) U/L ALT (0-50) U/L Alkaline Phosphatase (38-126) U/L Troponin I (0.000-0.034) ng/mL Serum Total Protein (6.3-8.2) g/dL Albumin (3.5-5.0) g/dL Amylase (30-110) U/L Lipase (23-300) U/L Urine Color Dark Yellow (Yellow) Urine Appearance Cloudy A (Clear) Urine pH 5.0 (4.6-8.0) Ur Specific Willard 1.025 (1.005-1.030) Urine Protein 30 (Negative) Urine Glucose (UA) Negative (Negative) mg/dL Urine Ketones Negative (Negative) Urine Blood Small A (Negative) Urine Nitrite Negative (Negative) Urine Bilirubin Small A (Negative) Urine Urobilinogen 0.2 (0.2) mg/dL Ur Leukocyte Esterase Negative (Negative) U Hyaline Cast (Auto) 6-10 A (0-2) /LPF Urine Microscopic RBC 11-20 A (0-5) /HPF Urine Microscopic WBC 3-5 (0-5) /HPF Ur Epithelial Cells Rare (None Seen) /HPF Urine Bacteria None Seen (None Seen) /HPF Granular Casts 0-2 A (None Seen) /LPF Urine Mucus Moderate A (NEGATIVE) /HPF Urine Culture Reflexed YES (NO) Urine Sodium 43 (30-90) mmol/L C. difficile Screen NEGATIVE (NEGATIVE) C.difficile 027-NAP1-B1 PRESUMPTIVE NEGATIVE (NEGATIVE) 01/29/23 01/29/23 01/29/23 Range/Units 05:30 05:30 07:28 WBC 9.5 (4.0-10.5) x10^3/uL RBC 3.72 L (4.1-5.6) x10^6/uL Hgb 11.4 L (12.5-18.0) g/dL Hct 35.1 L (42-50) % MCV 94.4 (78-100) fL MCH 30.6 (26-32) pg MCHC 32.5 (32-36) g/dL RDW 13.6 (11.5-14.0) % Plt Count 212 (150-450) x10^3/uL MPV 9.4 (7.5-11.0) fL Gran % 66.6 H (36.0-66.0) % Immature Gran % (Auto) 0.7 H (0.00-0.4) % Nucleat RBC Rel Count 0.0 (0.00-0.1) % Eos # (Auto) 0.01 (0-0.5) x10^3/uL Immature Gran # (Auto) 0.07 H (0.00-0.03) x10^3u/L Absolute Lymphs (auto) 2.41 (1.0-4.6) x10^3/uL Absolute Monos (auto) 0.66 (0.0-1.3) x10^3/uL Absolute Nucleated RBC 0.00 (0.00-0.01) x10^3u/L Lymphocytes % 25.4 (24.0-44.0) % Monocytes % 7.0 (0.0-12.0) % Eosinophils % 0.1 (0.00-5.0) % Basophils % 0.2 (0.0-0.4) % Absolute Granulocytes 6.31 (1.4-6.9) x10^3/uL Segmented Neutrophils (36.-66.) % Lymphocytes (Manual) (24-44) % Monocytes (Manual) (0.0-12.0) % Basophils # 0.02 (0-0.4) x10^3/uL Platelet Estimate (NORMAL) RBC Morphology Sodium 131 L (137-145) mmol/L Potassium 4.1 (3.5-5.1) mmol/L Chloride 107 (98-107) mmol/L Carbon Dioxide 18 L (22-30) mmol/L Anion Gap 10.1 (5-15) MEQ/L BUN 21 H (9-20) mg/dL Creatinine 1.17 (0.66-1.25) mg/dL Estimated GFR 61.5 ML/MIN Glucose 109 H (74-106) mg/dL POC Glucometer 102 (74 to 106) mg/dL Lactic Acid (0.4-2.0) Calcium 7.6 L (8.4-10.2) mg/dL Total Bilirubin (0.2-1.3) mg/dL AST (17-59) U/L ALT (0-50) U/L Alkaline Phosphatase (38-126) U/L Troponin I (0.000-0.034) ng/mL Serum Total Protein (6.3-8.2) g/dL Albumin (3.5-5.0) g/dL Amylase (30-110) U/L Lipase (23-300) U/L Urine Color (Yellow) Urine Appearance (Clear) Urine pH (4.6-8.0) Ur Specific Willard (1.005-1.030) Urine Protein (Negative) Urine Glucose (UA) (Negative) mg/dL Urine Ketones (Negative) Urine Blood (Negative) Urine Nitrite (Negative) Urine Bilirubin (Negative) Urine Urobilinogen (0.2) mg/dL Ur Leukocyte Esterase (Negative) U Hyaline Cast (Auto) (0-2) /LPF Urine Microscopic RBC (0-5) /HPF Urine Microscopic WBC (0-5) /HPF Ur Epithelial Cells (None Seen) /HPF Urine Bacteria (None Seen) /HPF Granular Casts (None Seen) /LPF Urine Mucus (NEGATIVE) /HPF Urine Culture Reflexed (NO) Urine Sodium (30-90) mmol/L C. difficile Screen (NEGATIVE) C.difficile 027-NAP1-B1 (NEGATIVE) Radiology Exams: Radiology Procedures Category Date Time Status CHEST 1 VIEW (PORTABLE) Stat Exams 01/28/23 17:39 Completed <TEENA MURPHY - Last Filed: 01/29/23 09:20> Vital Signs: Vital Signs - 24 hr Temp Pulse Resp BP BP Pulse Ox 01/29/23 12:00 16 01/29/23 11:02 97.7 F 75 28 H 121/56 96 01/29/23 08:00 16 01/29/23 07:41 98.6 F 86 16 130/60 97 01/29/23 07:10 96 01/29/23 04:00 98.4 F 85 22 119/59 95 01/29/23 00:16 100.2 F 01/28/23 23:48 16 01/28/23 23:24 99.0 F 82 17 133/65 96 01/28/23 20:52 98.5 F 81 16 123/58 96 01/28/23 19:37 70 01/28/23 19:25 98 01/28/23 18:00 83 24 148/66 95 01/28/23 17:30 86 29 H 133/63 96 Pain Assessment - Last Documented Pain Intensity 0 Intake and Output: Intake & Output 01/27/23 01/28/23 01/29/23 01/30/23 11:59 11:59 11:59 11:59 Intake Total 796 120 Output Total 525 Balance 271 120 Weight 75.4 kg Lab Results: Lab Results-Last 24 Hours 01/28/23 01/28/23 01/28/23 Range/Units 17:30 17:30 17:38 WBC 9.9 (4.0-10.5) x10^3/uL RBC 4.13 (4.1-5.6) x10^6/uL Hgb 12.6 (12.5-18.0) g/dL Hct 38.4 L (42-50) % MCV 93.0 (78-100) fL MCH 30.5 (26-32) pg MCHC 32.8 (32-36) g/dL RDW 13.5 (11.5-14.0) % Plt Count 220 (150-450) x10^3/uL MPV 9.1 (7.5-11.0) fL Gran % (36.0-66.0) % Immature Gran % (Auto) (0.00-0.4) % Nucleat RBC Rel Count (0.00-0.1) % Eos # (Auto) (0-0.5) x10^3/uL Immature Gran # (Auto) (0.00-0.03) x10^3u/L Absolute Lymphs (auto) (1.0-4.6) x10^3/uL Absolute Monos (auto) (0.0-1.3) x10^3/uL Absolute Nucleated RBC (0.00-0.01) x10^3u/L Lymphocytes % (24.0-44.0) % Monocytes % (0.0-12.0) % Eosinophils % (0.00-5.0) % Basophils % (0.0-0.4) % Absolute Granulocytes (1.4-6.9) x10^3/uL Segmented Neutrophils 52 (36.-66.) % Lymphocytes (Manual) 45 H (24-44) % Monocytes (Manual) 3 (0.0-12.0) % Basophils # (0-0.4) x10^3/uL Platelet Estimate NORMAL (NORMAL) RBC Morphology NORMAL Sodium 131 L (137-145) mmol/L Potassium 4.7 (3.5-5.1) mmol/L Chloride 103 (98-107) mmol/L Carbon Dioxide 20 L (22-30) mmol/L Anion Gap 12.1 (5-15) MEQ/L BUN 24 H (9-20) mg/dL Creatinine 1.29 H (0.66-1.25) mg/dL Estimated GFR 54.7 ML/MIN Glucose 107 H (74-106) mg/dL POC Glucometer (74 to 106) mg/dL Lactic Acid 2.1 H (0.4-2.0) Calcium 8.4 (8.4-10.2) mg/dL Total Bilirubin 1.00 (0.2-1.3) mg/dL AST 144 H (17-59) U/L ALT 71 H (0-50) U/L Alkaline Phosphatase 103 (38-126) U/L Troponin I 0.013 (0.000-0.034) ng/mL Serum Total Protein 8.6 H (6.3-8.2) g/dL Albumin 3.8 (3.5-5.0) g/dL Amylase 78 (30-110) U/L Lipase 152 (23-300) U/L Urine Color (Yellow) Urine Appearance (Clear) Urine pH (4.6-8.0) Ur Specific Willard (1.005-1.030) Urine Protein (Negative) Urine Glucose (UA) (Negative) mg/dL Urine Ketones (Negative) Urine Blood (Negative) Urine Nitrite (Negative) Urine Bilirubin (Negative) Urine Urobilinogen (0.2) mg/dL Ur Leukocyte Esterase (Negative) U Hyaline Cast (Auto) (0-2) /LPF Urine Microscopic RBC (0-5) /HPF Urine Microscopic WBC (0-5) /HPF Ur Epithelial Cells (None Seen) /HPF Urine Bacteria (None Seen) /HPF Granular Casts (None Seen) /LPF Urine Mucus (NEGATIVE) /HPF Urine Culture Reflexed (NO) Urine Sodium (30-90) mmol/L C. difficile Screen (NEGATIVE) C.difficile 027-NAP1-B1 (NEGATIVE) 01/28/23 01/28/23 01/28/23 Range/Units 19:49 21:08 23:52 WBC (4.0-10.5) x10^3/uL RBC (4.1-5.6) x10^6/uL Hgb (12.5-18.0) g/dL Hct (42-50) % MCV (78-100) fL MCH (26-32) pg MCHC (32-36) g/dL RDW (11.5-14.0) % Plt Count (150-450) x10^3/uL MPV (7.5-11.0) fL Gran % (36.0-66.0) % Immature Gran % (Auto) (0.00-0.4) % Nucleat RBC Rel Count (0.00-0.1) % Eos # (Auto) (0-0.5) x10^3/uL Immature Gran # (Auto) (0.00-0.03) x10^3u/L Absolute Lymphs (auto) (1.0-4.6) x10^3/uL Absolute Monos (auto) (0.0-1.3) x10^3/uL Absolute Nucleated RBC (0.00-0.01) x10^3u/L Lymphocytes % (24.0-44.0) % Monocytes % (0.0-12.0) % Eosinophils % (0.00-5.0) % Basophils % (0.0-0.4) % Absolute Granulocytes (1.4-6.9) x10^3/uL Segmented Neutrophils (36.-66.) % Lymphocytes (Manual) (24-44) % Monocytes (Manual) (0.0-12.0) % Basophils # (0-0.4) x10^3/uL Platelet Estimate (NORMAL) RBC Morphology Sodium 131 L (137-145) mmol/L Potassium (3.5-5.1) mmol/L Chloride (98-107) mmol/L Carbon Dioxide (22-30) mmol/L Anion Gap (5-15) MEQ/L BUN (9-20) mg/dL Creatinine (0.66-1.25) mg/dL Estimated GFR ML/MIN Glucose (74-106) mg/dL POC Glucometer 93 (74 to 106) mg/dL Lactic Acid 1.6 (0.4-2.0) Calcium (8.4-10.2) mg/dL Total Bilirubin (0.2-1.3) mg/dL AST (17-59) U/L ALT (0-50) U/L Alkaline Phosphatase (38-126) U/L Troponin I (0.000-0.034) ng/mL Serum Total Protein (6.3-8.2) g/dL Albumin (3.5-5.0) g/dL Amylase (30-110) U/L Lipase (23-300) U/L Urine Color (Yellow) Urine Appearance (Clear) Urine pH (4.6-8.0) Ur Specific [place] (1.005-1.030) Urine Protein (Negative) Urine Glucose (UA) (Negative) mg/dL Urine Ketones (Negative) Urine Blood (Negative) Urine Nitrite (Negative) Urine Bilirubin (Negative) Urine Urobilinogen (0.2) mg/dL Ur Leukocyte Esterase (Negative) U Hyaline Cast (Auto) (0-2) /LPF Urine Microscopic RBC (0-5) /HPF Urine Microscopic WBC (0-5) /HPF Ur Epithelial Cells (None Seen) /HPF Urine Bacteria (None Seen) /HPF Granular Casts (None Seen) /LPF Urine Mucus (NEGATIVE) /HPF Urine Culture Reflexed (NO) Urine Sodium (30-90) mmol/L C. difficile Screen (NEGATIVE) C.difficile 027-NAP1-B1 (NEGATIVE) 01/28/23 01/28/23 01/29/23 Range/Units 23:53 23:53 01:19 WBC (4.0-10.5) x10^3/uL RBC (4.1-5.6) x10^6/uL Hgb (12.5-18.0) g/dL Hct (42-50) % MCV (78-100) fL MCH (26-32) pg MCHC (32-36) g/dL RDW (11.5-14.0) % Plt Count (150-450) x10^3/uL MPV (7.5-11.0) fL Gran % (36.0-66.0) % Immature Gran % (Auto) (0.00-0.4) % Nucleat RBC Rel Count (0.00-0.1) % Eos # (Auto) (0-0.5) x10^3/uL Immature Gran # (Auto) (0.00-0.03) x10^3u/L Absolute Lymphs (auto) (1.0-4.6) x10^3/uL Absolute Monos (auto) (0.0-1.3) x10^3/uL Absolute Nucleated RBC (0.00-0.01) x10^3u/L Lymphocytes % (24.0-44.0) % Monocytes % (0.0-12.0) % Eosinophils % (0.00-5.0) % Basophils % (0.0-0.4) % Absolute Granulocytes (1.4-6.9) x10^3/uL Segmented Neutrophils (36.-66.) % Lymphocytes (Manual) (24-44) % Monocytes (Manual) (0.0-12.0) % Basophils # (0-0.4) x10^3/uL Platelet Estimate (NORMAL) RBC Morphology Sodium (137-145) mmol/L Potassium (3.5-5.1) mmol/L Chloride (98-107) mmol/L Carbon Dioxide (22-30) mmol/L Anion Gap (5-15) MEQ/L BUN (9-20) mg/dL Creatinine (0.66-1.25) mg/dL Estimated GFR ML/MIN Glucose (74-106) mg/dL POC Glucometer (74 to 106) mg/dL Lactic Acid (0.4-2.0) Calcium (8.4-10.2) mg/dL Total Bilirubin (0.2-1.3) mg/dL AST (17-59) U/L ALT (0-50) U/L Alkaline Phosphatase (38-126) U/L Troponin I (0.000-0.034) ng/mL Serum Total Protein (6.3-8.2) g/dL Albumin (3.5-5.0) g/dL Amylase (30-110) U/L Lipase (23-300) U/L Urine Color Dark Yellow (Yellow) Urine Appearance Cloudy A (Clear) Urine pH 5.0 (4.6-8.0) Ur Specific [place] 1.025 (1.005-1.030) Urine Protein 30 (Negative) Urine Glucose (UA) Negative (Negative) mg/dL Urine Ketones Negative (Negative) Urine Blood Small A (Negative) Urine Nitrite Negative (Negative) Urine Bilirubin Small A (Negative) Urine Urobilinogen 0.2 (0.2) mg/dL Ur Leukocyte Esterase Negative (Negative) U Hyaline Cast (Auto) 6-10 A (0-2) /LPF Urine Microscopic RBC 11-20 A (0-5) /HPF Urine Microscopic WBC 3-5 (0-5) /HPF Ur Epithelial Cells Rare (None Seen) /HPF Urine Bacteria None Seen (None Seen) /HPF Granular Casts 0-2 A (None Seen) /LPF Urine Mucus Moderate A (NEGATIVE) /HPF Urine Culture Reflexed YES (NO) Urine Sodium 43 (30-90) mmol/L C. difficile Screen NEGATIVE (NEGATIVE) C.difficile [id number] PRESUMPTIVE NEGATIVE (NEGATIVE) 01/29/23 01/29/23 01/29/23 Range/Units 05:30 05:30 07:28 WBC 9.5 (4.0-10.5) x10^3/uL RBC 3.72 L (4.1-5.6) x10^6/uL Hgb 11.4 L (12.5-18.0) g/dL Hct 35.1 L (42-50) % MCV 94.4 (78-100) fL MCH 30.6 (26-32) pg MCHC 32.5 (32-36) g/dL RDW 13.6 (11.5-14.0) % Plt Count 212 (150-450) x10^3/uL MPV 9.4 (7.5-11.0) fL Gran % 66.6 H (36.0-66.0) % Immature Gran % (Auto) 0.7 H (0.00-0.4) % Nucleat RBC Rel Count 0.0 (0.00-0.1) % Eos # (Auto) 0.01 (0-0.5) x10^3/uL Immature Gran # (Auto) 0.07 H (0.00-0.03) x10^3u/L Absolute Lymphs (auto) 2.41 (1.0-4.6) x10^3/uL Absolute Monos (auto) 0.66 (0.0-1.3) x10^3/uL Absolute Nucleated RBC 0.00 (0.00-0.01) x10^3u/L Lymphocytes % 25.4 (24.0-44.0) % Monocytes % 7.0 (0.0-12.0) % Eosinophils % 0.1 (0.00-5.0) % Basophils % 0.2 (0.0-0.4) % Absolute Granulocytes 6.31 (1.4-6.9) x10^3/uL Segmented Neutrophils (36.-66.) % Lymphocytes (Manual) (24-44) % Monocytes (Manual) (0.0-12.0) % Basophils # 0.02 (0-0.4) x10^3/uL Platelet Estimate (NORMAL) RBC Morphology Sodium 131 L (137-145) mmol/L Potassium 4.1 (3.5-5.1) mmol/L Chloride 107 (98-107) mmol/L Carbon Dioxide 18 L (22-30) mmol/L Anion Gap 10.1 (5-15) MEQ/L BUN 21 H (9-20) mg/dL Creatinine 1.17 (0.66-1.25) mg/dL Estimated GFR 61.5 ML/MIN Glucose 109 H (74-106) mg/dL POC Glucometer 102 (74 to 106) mg/dL Lactic Acid (0.4-2.0) Calcium 7.6 L (8.4-10.2) mg/dL Total Bilirubin (0.2-1.3) mg/dL AST (17-59) U/L ALT (0-50) U/L Alkaline Phosphatase (38-126) U/L Troponin I (0.000-0.034) ng/mL Serum Total Protein (6.3-8.2) g/dL Albumin (3.5-5.0) g/dL Amylase (30-110) U/L Lipase (23-300) U/L Urine Color (Yellow) Urine Appearance (Clear) Urine pH (4.6-8.0) Ur Specific [place] (1.005-1.030) Urine Protein (Negative) Urine Glucose (UA) (Negative) mg/dL Urine Ketones (Negative) Urine Blood (Negative) Urine Nitrite (Negative) Urine Bilirubin (Negative) Urine Urobilinogen (0.2) mg/dL Ur Leukocyte Esterase (Negative) U Hyaline Cast (Auto) (0-2) /LPF Urine Microscopic RBC (0-5) /HPF Urine Microscopic WBC (0-5) /HPF Ur Epithelial Cells (None Seen) /HPF Urine Bacteria (None Seen) /HPF Granular Casts (None Seen) /LPF Urine Mucus (NEGATIVE) /HPF Urine Culture Reflexed (NO) Urine Sodium (30-90) mmol/L C. difficile Screen (NEGATIVE) C.difficile [id number] (NEGATIVE) 01/29/23 01/29/23 Range/Units 11:47 16:58 WBC (4.0-10.5) x10^3/uL RBC (4.1-5.6) x10^6/uL Hgb (12.5-18.0) g/dL Hct (42-50) % MCV (78-100) fL MCH (26-32) pg MCHC (32-36) g/dL RDW (11.5-14.0) % Plt Count (150-450) x10^3/uL MPV (7.5-11.0) fL Gran % (36.0-66.0) % Immature Gran % (Auto) (0.00-0.4) % Nucleat RBC Rel Count (0.00-0.1) % Eos # (Auto) (0-0.5) x10^3/uL Immature Gran # (Auto) (0.00-0.03) x10^3u/L Absolute Lymphs (auto) (1.0-4.6) x10^3/uL Absolute Monos (auto) (0.0-1.3) x10^3/uL Absolute Nucleated RBC (0.00-0.01) x10^3u/L Lymphocytes % (24.0-44.0) % Monocytes % (0.0-12.0) % Eosinophils % (0.00-5.0) % Basophils % (0.0-0.4) % Absolute Granulocytes (1.4-6.9) x10^3/uL Segmented Neutrophils (36.-66.) % Lymphocytes (Manual) (24-44) % Monocytes (Manual) (0.0-12.0) % Basophils # (0-0.4) x10^3/uL Platelet Estimate (NORMAL) RBC Morphology Sodium (137-145) mmol/L Potassium (3.5-5.1) mmol/L Chloride (98-107) mmol/L Carbon Dioxide (22-30) mmol/L Anion Gap (5-15) MEQ/L BUN (9-20) mg/dL Creatinine (0.66-1.25) mg/dL Estimated GFR ML/MIN Glucose (74-106) mg/dL POC Glucometer 92 102 (74 to 106) mg/dL Lactic Acid (0.4-2.0) Calcium (8.4-10.2) mg/dL Total Bilirubin (0.2-1.3) mg/dL AST (17-59) U/L ALT (0-50) U/L Alkaline Phosphatase (38-126) U/L Troponin I (0.000-0.034) ng/mL Serum Total Protein (6.3-8.2) g/dL Albumin (3.5-5.0) g/dL Amylase (30-110) U/L Lipase (23-300) U/L Urine Color (Yellow) Urine Appearance (Clear) Urine pH (4.6-8.0) Ur Specific Willard (1.005-1.030) Urine Protein (Negative) Urine Glucose (UA) (Negative) mg/dL Urine Ketones (Negative) Urine Blood (Negative) Urine Nitrite (Negative) Urine Bilirubin (Negative) Urine Urobilinogen (0.2) mg/dL Ur Leukocyte Esterase (Negative) U Hyaline Cast (Auto) (0-2) /LPF Urine Microscopic RBC (0-5) /HPF Urine Microscopic WBC (0-5) /HPF Ur Epithelial Cells (None Seen) /HPF Urine Bacteria (None Seen) /HPF Granular Casts (None Seen) /LPF Urine Mucus (NEGATIVE) /HPF Urine Culture Reflexed (NO) Urine Sodium (30-90) mmol/L C. difficile Screen (NEGATIVE) C.difficile [id number] (NEGATIVE) Radiology Exams: Radiology Procedures Category Date Time Status CHEST 1 VIEW (PORTABLE) Stat Exams 01/28/23 17:39 Completed <MARJORIE LOUIS - Last Filed: 01/29/23 17:22> Assessment/Plan (1) Hyponatremia Current Visit: Yes Status: Chronic Assessment & Plan: - Chronic- mild NA+ 132- trend Code(s): E87.1 - HYPO-OSMOLALITY AND HYPONATREMIA (2) Acute renal insufficiency Current Visit: Yes Status: Acute Assessment & Plan: - resolved - NS @ 50ml/hr - Continue BP meds that were held for NELDA Code(s): N28.9 - DISORDER OF KIDNEY AND URETER, UNSPECIFIED (3) Diarrhea Current Visit: Yes Status: Chronic Qualifiers: Diarrhea type: unspecified type Qualified Code(s): R19.7 - Diarrhea, unspecified Assessment & Plan: - Chronic -C-Diff negative - Start imodium - barrier cream to protect skin Code(s): R19.7 - DIARRHEA, UNSPECIFIED (4) Abnormal findings on diagnostic imaging of abdomen Current Visit: No Status: Acute Assessment & Plan: - He has f/u OP with oncology and is scheduled for a PET scan Op - As seen on CT Abd last visit: 01/15 IMPRESSION: Mild hepatomegaly, and fatty infiltration of the liver. No significant bowel wall thickening, or bowel dilatation. Clear operative bed. Multiple enlarged berta hepatis and gastrohepatic LNs, follow up is advised. No acute intra-abdominal abnormality. Right renal cyst [Bosniak type I]. Noncomplicated colonic diverticulosis mainly involves the sigmoid and descending colon without evidence of diverticulitis. The rest of the findings as detailed above. - may need to consider hospice. Code(s): R93.5 - ABN FINDINGS ON DX IMAGING OF ABD REGIONS, INC RETROPERITON (5) General weakness Current Visit: No Status: Acute Assessment & Plan: - Need PT and OT eval - Placement- discussed with case management. - Chest Xr 01/28 Impression: Continuing acute chest with chronic features. VTE: Lovenox PPI: Protonix Next of Kin: Jillian Burt [phone] Code status: Full D/C plan: needs placement Code(s): R53.1 - WEAKNESS <TEENA MURPHY - Last Filed: 01/29/23 09:20> MADHAV Encounter - MADHAV Encounter Attestation MADHAV Encounter Attestation: "IhavepersonallyskhrisexRAJESH Rodrigues andhavediscussed pertinent aspects of their care with Teena Murphy and agree with the history, physical exam (any modifications based on my personal exam will be noted below), assessment, and plan as outlined in original note. Please see immediately below for my summary of findings and additional assessment and plan along with any meaningful corrections/explanations to the Subjective/Objective portions of the MADHAV note will be noted." My portion of the encounter took place via telemedicine. -Spoke with son at the bedside. Patient has a PET scan scheduled for 02/01 for evaluation of his LAD,in the setting of weightloss and weakness. He has had diarrhea for 2 weeks, which has caused profound weakness and reportedly hypotension as well in the outpatient setting where his amlodipine was discontinued. Will hydrate patient, encourage oral intake and family will be speaking with protective services case worker regarding extended care options. <MARJORIE LOUIS - Last Filed: 01/29/23 17:22>
[2023-01-29] MEDS ORDERED: NORVASC 5 MG PO SCH (10:00)
[2023-01-29] MEDS: ZOCOR 20MG PO SCH (10:36)
[2023-01-29] MEDS: Avapro 150 MG PO SCH (10:36)
[2023-01-29] MEDS: ENOXAPARIN SODIUM SQ SCH (10:37)
[2023-01-29] MEDS: Ditropan 5 MG PO SCH (10:37)
[2023-01-29] MEDS: PROTONIX 40 MG IV IV SCH (10:37)
[2023-01-29] MEDS: Desyrel 150 MG PO SCH (21:40)
--- NOTE | 2023-01-30 05:39 | PCM.NOTE ---
Date and Time: 01/30/23 0537 Subjective Assessment: Mr. Hadley is an 82 year old male with PMHX of HTN, HLD, hypothyroid, and colon cancer s/p surgery then adjuvant chemotherapy, who presented to ED 01/28/23 with complaints of generalized weakness and admitted for hyponatremia, NELDA, and diarrhea (chronic). Patient was recently admitted from 01/15-01/19/23 for similar complaints of generalized weakness, diarrhea, and intermittent fevers. During this previous admission he was found to have hyponatremia due to diarrhea as well as poor osmolar intake/excessive fluid intake with an underlying component of SIADH. CT imaging also noted enlarged lymph nodes. Patient was transferred to [facility] for further evaluation of hyponatremia as well as ID for fevers of unknown cause, and heme/onc consult for periportal lymphadenopathy. Patient is following with Dr. Reyna (oncology) as OP. MRCP was obtained noting LN 2cm along the head of pancreas with no masses in the pancreas or liver. Further workup has been discussed with patient and plan for PET with possible bx/ERCP/EBUS pending results. There is concern for malignancy due to recent weight loss, hyponatremia, and previous h/o cancer. Non-malignant causes also discussed including infection/reactive processes. Patient is also following with Dr. Sanford (nephrology). He has maintained fluid restriction at home but his weakness and anorexia have continued. Patients has been afebrile since being home. He reports chronic diarrhea and has not been taking anything at home for this. C-dif testing was negative and Imodium started. NELDA has resolved since admission. Sodium is 131 and this is mild and chronic. C02 low most likely r/t chronic diarrhea. He will need a PT and OT eval. Family would like placement per nursing staff as they are unable to care for him at home. Discussed with case management. 01/30/23: Met with patient and son bedside. Endorses improvement of weakness today.Discussed plan for PT/OT eval and placement for rehab for which patient is agreeable. Patient states that diarrhea has improved some with imodium, bicarb still low today. Plan for PT/OT eval tomorrow for placement, otherwise paitent stable for discharge when accepted to facility. Denies fever,cough, sob, cp, abdominal pain, GUZMAN, dizziness, N/V/D. <ANTELMO SOLO - Last Filed: 01/30/23 10:58> Date and Time: 01/30/232009 <MARJORIE LOUIS - Last Filed: 01/30/23 20:12> - Review of Systems Constitutional: Weakness Eyes: No Symptoms Ears, Nose, & Throat: No Symptoms Respiratory: No Symptoms Cardiac: No Symptoms Abdominal/Gastrointestinal: Diarrhea Genitourinary Symptoms: No Symptoms Musculoskeletal: No Symptoms Skin: No Symptoms Neurological: No Symptoms Psychological: No Symptoms Endocrine: No Symptoms Hematologic/Lymphatic: No Symptoms <ANTELMO SOLO - Last Filed: 01/30/23 10:58> Objective Exam General Appearance: no apparent distress Neurologic Exam: alert, oriented x 3, cooperative Skin Exam: normal color Wound Assessment: Skin/Wound Assessment Wound/Incision Assessment Start: 01/28/23 21:11 Text: Status: Active Freq: Q6H Protocol: Document 01/30/23 02:47 SM (Rec: 01/30/23 02:47 SM [id number]) Wound/Incision Assessment Medial Coccyx Wound Assessment Shift Assessment Wound Type Skin Tear Wound Stage Non Pressure Wound Drainage Amount None General Appearance Well Approximated Comment barrier cream applied Wound Photo Photo Taken Yes Date: 01/28/23 Time: 20:30 Eye Exam: PERRL Ears, Nose, Throat Exam: normal ENT inspection Neck Exam: normal inspection Respiratory Exam: normal breath sounds, lungs clear Cardiovascular Exam: regular rate/rhythm, normal heart sounds Gastrointestinal/Abdomen Exam: soft, normal bowel sounds Extremity Exam: normal inspection Back Exam: normal inspection <ANTELMO SOLO - Last Filed: 01/30/23 10:58> Wound Assessment: Skin/Wound Assessment Wound/Incision Assessment Start: 01/28/23 21:11 Text: Status: Active Freq: Q6H Protocol: Document 01/30/23 15:00 AR (Rec: 01/30/23 16:13 AR [id number]) Wound/Incision Assessment Medial Coccyx Wound Assessment Shift Assessment Wound Type Skin Tear Wound Stage Non Pressure Wound Comment barrier cream applied prn Wound Photo Photo Taken Yes Date: 01/28/23 Time: 20:30 <MARJORIE LOUIS - Last Filed: 01/30/23 20:12> OBJECTIVE DATA Vital Signs: Vital Signs - 24 hr Temp Pulse Resp BP Pulse Ox 01/30/23 03:58 98 F 67 16 121/59 93 L 01/30/23 00:00 97.5 F 72 16 125/56 93 L 01/29/23 20:00 99 F 77 16 118/58 93 L 01/29/23 16:00 98.4 F 77 16 108/54 97 01/29/23 12:00 16 01/29/23 11:02 97.7 F 75 28 H 121/56 96 01/29/23 08:00 16 01/29/23 07:41 98.6 F 86 16 130/60 97 01/29/23 07:10 96 Pain Assessment - Last Documented Pain Intensity 0 Intake and Output: Intake & Output 01/27/23 01/28/23 01/29/23 01/30/23 11:59 11:59 11:59 11:59 Intake Total 796 320 Output Total 525 100 Balance 271 220 Weight 75.4 kg Lab Results: Lab Results-Last 24 Hours 01/28/23 01/29/23 01/29/23 Range/Units 19:49 05:30 05:30 WBC 9.5 (4.0-10.5) x10^3/uL RBC 3.72 L (4.1-5.6) x10^6/uL Hgb 11.4 L (12.5-18.0) g/dL Hct 35.1 L (42-50) % MCV 94.4 (78-100) fL MCH 30.6 (26-32) pg MCHC 32.5 (32-36) g/dL RDW 13.6 (11.5-14.0) % Plt Count 212 (150-450) x10^3/uL MPV 9.4 (7.5-11.0) fL Gran % 66.6 H (36.0-66.0) % Immature Gran % (Auto) 0.7 H (0.00-0.4) % Nucleat RBC Rel Count 0.0 (0.00-0.1) % Eos # (Auto) 0.01 (0-0.5) x10^3/uL Immature Gran # (Auto) 0.07 H (0.00-0.03) x10^3u/L Absolute Lymphs (auto) 2.41 (1.0-4.6) x10^3/uL Absolute Monos (auto) 0.66 (0.0-1.3) x10^3/uL Absolute Nucleated RBC 0.00 (0.00-0.01) x10^3u/L Lymphocytes % 25.4 (24.0-44.0) % Monocytes % 7.0 (0.0-12.0) % Eosinophils % 0.1 (0.00-5.0) % Basophils % 0.2 (0.0-0.4) % Absolute Granulocytes 6.31 (1.4-6.9) x10^3/uL Basophils # 0.02 (0-0.4) x10^3/uL Sodium 131 L (137-145) mmol/L Potassium 4.1 (3.5-5.1) mmol/L Chloride 107 (98-107) mmol/L Carbon Dioxide 18 L (22-30) mmol/L Anion Gap 10.1 (5-15) MEQ/L BUN 21 H (9-20) mg/dL Creatinine 1.17 (0.66-1.25) mg/dL Estimated GFR 61.5 ML/MIN Glucose 109 H (74-106) mg/dL POC Glucometer (74 to 106) mg/dL Lactic Acid 1.6 (0.4-2.0) Calcium 7.6 L (8.4-10.2) mg/dL 01/29/23 01/29/23 01/29/23 Range/Units 07:28 11:47 16:58 WBC (4.0-10.5) x10^3/uL RBC (4.1-5.6) x10^6/uL Hgb (12.5-18.0) g/dL Hct (42-50) % MCV (78-100) fL MCH (26-32) pg MCHC (32-36) g/dL RDW (11.5-14.0) % Plt Count (150-450) x10^3/uL MPV (7.5-11.0) fL Gran % (36.0-66.0) % Immature Gran % (Auto) (0.00-0.4) % Nucleat RBC Rel Count (0.00-0.1) % Eos # (Auto) (0-0.5) x10^3/uL Immature Gran # (Auto) (0.00-0.03) x10^3u/L Absolute Lymphs (auto) (1.0-4.6) x10^3/uL Absolute Monos (auto) (0.0-1.3) x10^3/uL Absolute Nucleated RBC (0.00-0.01) x10^3u/L Lymphocytes % (24.0-44.0) % Monocytes % (0.0-12.0) % Eosinophils % (0.00-5.0) % Basophils % (0.0-0.4) % Absolute Granulocytes (1.4-6.9) x10^3/uL Basophils # (0-0.4) x10^3/uL Sodium (137-145) mmol/L Potassium (3.5-5.1) mmol/L Chloride (98-107) mmol/L Carbon Dioxide (22-30) mmol/L Anion Gap (5-15) MEQ/L BUN (9-20) mg/dL Creatinine (0.66-1.25) mg/dL Estimated GFR ML/MIN Glucose (74-106) mg/dL POC Glucometer 102 92 102 (74 to 106) mg/dL Lactic Acid (0.4-2.0) Calcium (8.4-10.2) mg/dL Radiology Exams: Radiology Procedures Category Date Time Status CHEST 1 VIEW (PORTABLE) Stat Exams 01/28/23 17:39 Completed <ANTELMO SOLO - Last Filed: 01/30/23 10:58> Vital Signs: Vital Signs - 24 hr Temp Pulse Resp BP Pulse Ox 01/30/23 19:55 15 01/30/23 19:15 99.3 F 83 18 126/60 95 01/30/23 16:00 97.6 F 69 15 146/60 96 01/30/23 12:00 97.6 F 71 16 124/60 97 01/30/23 07:31 93 L 01/30/23 07:10 97.6 F 70 16 104/55 93 L 01/30/23 03:58 98 F 67 16 121/59 93 L 01/30/23 00:00 97.5 F 72 16 125/56 93 L Pain Assessment - Last Documented Pain Intensity 0 Intake and Output: Intake & Output 1201/29/23 01/30/23 01/31/23 11:59 11:59 11:59 11:59 Intake Total 796 560 360 Output Total 525 100 Balance 271 460 360 Weight 75.4 kg Lab Results: Lab Results-Last 24 Hours 01/30/23 01/30/23 01/30/23 Range/Units 06:00 06:00 06:00 WBC 7.7 (4.0-10.5) x10^3/uL RBC 3.44 L (4.1-5.6) x10^6/uL Hgb 10.4 L (12.5-18.0) g/dL Hct 32.5 L (42-50) % MCV 94.5 (78-100) fL MCH 30.2 (26-32) pg MCHC 32.0 (32-36) g/dL RDW 13.8 (11.5-14.0) % Plt Count 224 (150-450) x10^3/uL MPV 9.2 (7.5-11.0) fL Sodium 131 L (137-145) mmol/L Potassium 4.3 (3.5-5.1) mmol/L Chloride 108 H (98-107) mmol/L Carbon Dioxide 17 L (22-30) mmol/L Anion Gap 10.3 (5-15) MEQ/L BUN 25 H (9-20) mg/dL Creatinine 1.18 (0.66-1.25) mg/dL Estimated GFR 60.9 ML/MIN Glucose 97 (74-106) mg/dL POC Glucometer (74 to 106) mg/dL Hemoglobin A1c (4.5-6.0) % Calcium 7.7 L (8.4-10.2) mg/dL Total Bilirubin 0.70 (0.2-1.3) mg/dL AST 178 H (17-59) U/L ALT 88 H (0-50) U/L Alkaline Phosphatase 90 (38-126) U/L Serum Total Protein 7.4 (6.3-8.2) g/dL Albumin 3.2 L (3.5-5.0) g/dL 25-OH Vitamin D Total 66.4 (30-100) ng/mL 01/30/23 01/30/23 01/30/23 Range/Units 06:00 06:56 11:32 WBC (4.0-10.5) x10^3/uL RBC (4.1-5.6) x10^6/uL Hgb (12.5-18.0) g/dL Hct (42-50) % MCV (78-100) fL MCH (26-32) pg MCHC (32-36) g/dL RDW (11.5-14.0) % Plt Count (150-450) x10^3/uL MPV (7.5-11.0) fL Sodium (137-145) mmol/L Potassium (3.5-5.1) mmol/L Chloride (98-107) mmol/L Carbon Dioxide (22-30) mmol/L Anion Gap (5-15) MEQ/L BUN (9-20) mg/dL Creatinine (0.66-1.25) mg/dL Estimated GFR ML/MIN Glucose (74-106) mg/dL POC Glucometer 86 87 (74 to 106) mg/dL Hemoglobin A1c 5.08 (4.5-6.0) % Calcium (8.4-10.2) mg/dL Total Bilirubin (0.2-1.3) mg/dL AST (17-59) U/L ALT (0-50) U/L Alkaline Phosphatase (38-126) U/L Serum Total Protein (6.3-8.2) g/dL Albumin (3.5-5.0) g/dL 25-OH Vitamin D Total (30-100) ng/mL 12/25/23 Range/Units 16:25 WBC (4.0-10.5) x10^3/uL RBC (4.1-5.6) x10^6/uL Hgb (12.5-18.0) g/dL Hct (42-50) % MCV (78-100) fL MCH (26-32) pg MCHC (32-36) g/dL RDW (11.5-14.0) % Plt Count (150-450) x10^3/uL MPV (7.5-11.0) fL Sodium (137-145) mmol/L Potassium (3.5-5.1) mmol/L Chloride (98-107) mmol/L Carbon Dioxide (22-30) mmol/L Anion Gap (5-15) MEQ/L BUN (9-20) mg/dL Creatinine (0.66-1.25) mg/dL Estimated GFR ML/MIN Glucose (74-106) mg/dL POC Glucometer 88 (74 to 106) mg/dL Hemoglobin A1c (4.5-6.0) % Calcium (8.4-10.2) mg/dL Total Bilirubin (0.2-1.3) mg/dL AST (17-59) U/L ALT (0-50) U/L Alkaline Phosphatase (38-126) U/L Serum Total Protein (6.3-8.2) g/dL Albumin (3.5-5.0) g/dL 25-OH Vitamin D Total (30-100) ng/mL <MARJORIE LOUIS - Last Filed: 01/30/23 20:12> Assessment/Plan (1) Hyponatremia Current Visit: Yes Status: Chronic Assessment & Plan: - Chronic- mild NA+ 132- trend Code(s): E87.1 - HYPO-OSMOLALITY AND HYPONATREMIA (2) Acute renal insufficiency Current Visit: Yes Status: Acute Assessment & Plan: - resolved - NS @ 50ml/hr - Continue BP meds that were held for NELDA Code(s): N28.9 - DISORDER OF KIDNEY AND URETER, UNSPECIFIED (3) Diarrhea Current Visit: Yes Status: Chronic Qualifiers: Diarrhea type: unspecified type Qualified Code(s): R19.7 - Diarrhea, unspecified Assessment & Plan: - Chronic -C-Diff negative - Start imodium - barrier cream to protect skin 01/30: -bicarb low secondary to diarrhea, this has improved but I will give two doses of bicarb at 650mg today due to the level being at 17, hopefully as the diarrhea improves, this will as well Code(s): R19.7 - DIARRHEA, UNSPECIFIED (4) Abnormal findings on diagnostic imaging of abdomen Current Visit: No Status: Acute Assessment & Plan: - He has f/u OP with oncology and is scheduled for a PET scan Op - As seen on CT Abd last visit: 01/15 IMPRESSION: Mild hepatomegaly, and fatty infiltration of the liver. No significant bowel wall thickening, or bowel dilatation. Clear operative bed. Multiple enlarged berta hepatis and gastrohepatic LNs, follow up is advised. No acute intra-abdominal abnormality. Right renal cyst [Bosniak type I]. Noncomplicated colonic diverticulosis mainly involves the sigmoid and descending colon without evidence of diverticulitis. The rest of the findings as detailed above. - may need to consider hospice. Code(s): R93.5 - ABN FINDINGS ON DX IMAGING OF ABD REGIONS, INC RETROPERITON (5) General weakness Current Visit: No Status: Acute Assessment & Plan: - Need PT and OT eval - Placement- discussed with case management. - Chest Xr 01/28 Impression: Continuing acute chest with chronic features. 01/30: -PT/OT eval and placement pending. VTE: Lovenox PPI: Protonix Next of Kin: Antelmo Burt [phone] Code status: Full D/C plan: needs placement Code(s): R53.1 - WEAKNESS Code(s): E87.1 - HYPO-OSMOLALITY AND HYPONATREMIA (2) Acute renal insufficiency Current Visit: Yes Status: Acute Code(s): N28.9 - DISORDER OF KIDNEY AND URETER, UNSPECIFIED (3) Diarrhea Current Visit: Yes Status: Chronic Qualifiers: Diarrhea type: unspecified type Qualified Code(s): R19.7 - Diarrhea, unspecified Code(s): R19.7 - DIARRHEA, UNSPECIFIED (4) Abnormal findings on diagnostic imaging of abdomen Current Visit: No Status: Acute Code(s): R93.5 - ABN FINDINGS ON DX IMAGING OF ABD REGIONS, INC RETROPERITON (5) General weakness Current Visit: No Status: Acute Code(s): R53.1 - WEAKNESS <ANTELMO SOLO - Last Filed: 01/30/23 10:58> MADHAV Encounter - MADHAV Encounter Attestation MADHAV Encounter Attestation: "IhavepersonallyseenandexRAJESH Rodrigues andhavediscussed pertinent aspects of their care with Antelmo Fortune agree with the history, physical exam (any modifications based on my personal exam will be noted below), assessment, and plan as outlined in original note. Please see immediately below for my summary of findings and additional assessment and plan along with any meaningful corrections/explanations to the Subjective/Objective portions of the MADHAV note will be noted." My portion of the encounter took place via telemedicine. -Spoke with the patient and son who was at the bedside today. Patient ate better today, diarrhea somewhat improved but still very weak and family pursuing placement while patient undergoes work up for his weightloss, fevers, abdominal LAD (PET scan on 02/01) as an outpatient. <MARJORIE LOUIS - Last Filed: 01/30/23 20:12>
[2023-01-30] MEDS: SYNTHROID 50 MCG PO SCH (06:00)
[2023-01-30] MEDS: IMODIUM 2 MG PO PRN (06:00)
[2023-01-30 06:09] LABS: Hematocrit 32.5 % (42-50); Hemoglobin 10.4 g/dL (12.5-18.0); Mean Cell Volume 94.5 fL (78-100); Mean Corpuscular Hemoglobin 30.2 pg (26-32); Mean Platelet Volume 9.2 fL (7.5-11.0); Platelet Count 224 x10^3/uL (150-450); Red Blood Count 3.44 x10^6/uL (4.1-5.6); Red Cell Distribution Width 13.8 % (11.5-14.0); White Blood Count 7.7 x10^3/uL (4.0-10.5)
[2023-01-30 06:24] LABS: ALBUMIN 3.2 g/dL (3.5-5.0); ANION GAP 10.3 MEQ/L (5-15); BILIRUBIN,TOTAL 0.7 mg/dL (0.2-1.3); Calcium 7.7 mg/dL (8.4-10.2); Creatinine 1 1.18 mg/dL (0.66-1.25); EST GLOMERULAR FILTRATION RATE 60.9 ML/MIN; Potassium 4.3 mmol/L (3.5-5.1); Total Protein 7.4 g/dL (6.3-8.2)
[2023-01-30] MEDS: Avapro 150 MG PO SCH (10:16)
[2023-01-30] MEDS: PROTONIX 40 MG IV IV SCH (10:16)
[2023-01-30] MEDS: Ditropan 5 MG PO SCH (10:17)
[2023-01-30] MEDS: ZOCOR 20MG PO SCH (10:17)
[2023-01-30] MEDS: ENOXAPARIN SODIUM SQ SCH (10:17)
[2023-01-30] MEDS: SODIUM BICARBONATE PO SCH ×2 (13:27→21:02)
[2023-01-30] MEDS: Desyrel 150 MG PO SCH (21:02)
--- NOTE | 2023-01-31 05:38 | PCM.NOTE ---
Date and Time: 01/31/23 0534 Subjective Assessment: Mr. Hadley is an 82 year old male with PMHX of HTN, HLD, hypothyroid, and colon cancer s/p surgery then adjuvant chemotherapy, who presented to ED 01/28/23 with complaints of generalized weakness and admitted for hyponatremia, NELDA, and diarrhea (chronic). Patient was recently admitted from 01/15-01/19/23 for similar complaints of generalized weakness, diarrhea, and intermittent fevers. During this previous admission he was found to have hyponatremia due to diarrhea as well as poor osmolar intake/excessive fluid intake with an underlying component of SIADH. CT imaging also noted enlarged lymph nodes. Patient was transferred to [facility] for further evaluation of hyponatremia as well as ID for fevers of unknown cause, and heme/onc consult for periportal lymphadenopathy. Patient is following with Dr. Reyna (oncology) as OP. MRCP was obtained noting LN 2cm along the head of pancreas with no masses in the pancreas or liver. Further workup has been discussed with patient and plan for PET with possible bx/ERCP/EBUS pending results. There is concern for malignancy due to recent weight loss, hyponatremia, and previous h/o cancer. Non-malignant causes also discussed including infection/reactive processes. Patient is also following with Dr. Sanford (nephrology). He has maintained fluid restriction at home but his weakness and anorexia have continued. Patients has been afebrile since being home. He reports chronic diarrhea and has not been taking anything at home for this. C-dif testing was negative and Imodium started. NELDA has resolved since admission. Sodium is 131 and this is mild and chronic. C02 low most likely r/t chronic diarrhea. He will need a PT and OT eval. Family would like placement per nursing staff as they are unable to care for him at home. Discussed with case management. 01/30/23: Met with patient and son bedside. Endorses improvement of weakness today.Discussed plan for PT/OT eval and placement for rehab for which patient is agreeable. Patient states that diarrhea has improved some with imodium, bicarb still low today. Plan for PT/OT eval tomorrow for placement, otherwise patient stable for discharge when accepted to facility. Denies fever,cough, sob, cp, abdominal pain, GUZMAN, dizziness, N/V/D. 12/26: No overnight events noted. Patient is still weak but is able to ambulate with SBA/walker. Discussed with patient/family possible discharge with HHC and PT at home in order to complete PET/workup for oncology. Patient/ son have discussed options and would like to discharge to SNF for rehab as family is unable to provide care for patient at home with how weak he is. PET has been rescheduled per family. CO2 levels are low today, will increase sodium bicarb. Rehab precert pending. Transaminitis noted on labs this morning, increasing LFT's, reviewed CT from 01/15/23 noting hepatomegaly with fatty infiltration of the liver. Plan to obtain additional labs for further evaluation. - Review of Systems Constitutional: Weakness Eyes: No Symptoms Ears, Nose, & Throat: No Symptoms Respiratory: No Symptoms Cardiac: No Symptoms Abdominal/Gastrointestinal: No Symptoms Genitourinary Symptoms: No Symptoms Musculoskeletal: No Symptoms Skin: No Symptoms Neurological: No Symptoms Psychological: Depression Endocrine: No Symptoms Hematologic/Lymphatic: No Symptoms Immunological/Allergic: No Symptoms Objective Exam General Appearance: no apparent distress Neurologic Exam: alert, oriented x 3, cooperative Wound Assessment: Skin/Wound Assessment Wound/Incision Assessment Start: 01/28/23 21:11 Text: Status: Active Freq: Q6H Protocol: Document 01/31/23 02:44 MP (Rec: 01/31/23 02:44 MP [id number]) Wound/Incision Assessment Medial Coccyx Wound Assessment Shift Assessment Wound Type Skin Tear Wound Stage Non Pressure Wound Comment barrier cream applied prn Wound Photo Photo Taken Yes Date: 01/28/23 Time: 20:30 Eye Exam: PERRL Ears, Nose, Throat Exam: normal ENT inspection Neck Exam: normal inspection Respiratory Exam: normal breath sounds, lungs clear Cardiovascular Exam: regular rate/rhythm, normal heart sounds Gastrointestinal/Abdomen Exam: soft, normal bowel sounds Extremity Exam: normal inspection Back Exam: normal inspection OBJECTIVE DATA Vital Signs: Vital Signs - 24 hr Temp Pulse Resp BP Pulse Ox 01/31/23 04:00 98.1 F 76 18 124/58 93 L 01/31/23 00:00 98.2 F 84 14 105/50 94 L 01/30/23 19:55 15 01/30/23 19:15 99.3 F 83 18 126/60 95 01/30/23 16:00 97.6 F 69 15 146/60 96 01/30/23 12:00 97.6 F 71 16 124/60 97 01/30/23 07:31 93 L 01/30/23 07:10 97.6 F 70 16 104/55 93 L Pain Assessment - Last Documented Pain Intensity 0 Intake and Output: Intake & Output 01/28/23 01/29/23 01/30/23 01/31/23 11:59 11:59 11:59 11:59 Intake Total 796 560 480 Output Total 525 100 Balance 271 460 480 Weight 75.4 kg Lab Results: Lab Results-Last 24 Hours 01/30/23 01/30/23 01/30/23 Range/Units 06:00 06:00 06:00 WBC 7.7 (4.0-10.5) x10^3/uL RBC 3.44 L (4.1-5.6) x10^6/uL Hgb 10.4 L (12.5-18.0) g/dL Hct 32.5 L (42-50) % MCV 94.5 (78-100) fL MCH 30.2 (26-32) pg MCHC 32.0 (32-36) g/dL RDW 13.8 (11.5-14.0) % Plt Count 224 (150-450) x10^3/uL MPV 9.2 (7.5-11.0) fL Sodium 131 L (137-145) mmol/L Potassium 4.3 (3.5-5.1) mmol/L Chloride 108 H (98-107) mmol/L Carbon Dioxide 17 L (22-30) mmol/L Anion Gap 10.3 (5-15) MEQ/L BUN 25 H (9-20) mg/dL Creatinine 1.18 (0.66-1.25) mg/dL Estimated GFR 60.9 ML/MIN Glucose 97 (74-106) mg/dL POC Glucometer (74 to 106) mg/dL Hemoglobin A1c (4.5-6.0) % Calcium 7.7 L (8.4-10.2) mg/dL Total Bilirubin 0.70 (0.2-1.3) mg/dL AST 178 H (17-59) U/L ALT 88 H (0-50) U/L Alkaline Phosphatase 90 (38-126) U/L Serum Total Protein 7.4 (6.3-8.2) g/dL Albumin 3.2 L (3.5-5.0) g/dL 25-OH Vitamin D Total 66.4 (30-100) ng/mL 01/30/23 01/30/23 01/30/23 Range/Units 06:00 06:56 11:32 WBC (4.0-10.5) x10^3/uL RBC (4.1-5.6) x10^6/uL Hgb (12.5-18.0) g/dL Hct (42-50) % MCV (78-100) fL MCH (26-32) pg MCHC (32-36) g/dL RDW (11.5-14.0) % Plt Count (150-450) x10^3/uL MPV (7.5-11.0) fL Sodium (137-145) mmol/L Potassium (3.5-5.1) mmol/L Chloride (98-107) mmol/L Carbon Dioxide (22-30) mmol/L Anion Gap (5-15) MEQ/L BUN (9-20) mg/dL Creatinine (0.66-1.25) mg/dL Estimated GFR ML/MIN Glucose (74-106) mg/dL POC Glucometer 86 87 (74 to 106) mg/dL Hemoglobin A1c 5.08 (4.5-6.0) % Calcium (8.4-10.2) mg/dL Total Bilirubin (0.2-1.3) mg/dL AST (17-59) U/L ALT (0-50) U/L Alkaline Phosphatase (38-126) U/L Serum Total Protein (6.3-8.2) g/dL Albumin (3.5-5.0) g/dL 25-OH Vitamin D Total (30-100) ng/mL 01/30/23 01/30/23 Range/Units 16:25 21:49 WBC (4.0-10.5) x10^3/uL RBC (4.1-5.6) x10^6/uL Hgb (12.5-18.0) g/dL Hct (42-50) % MCV (78-100) fL MCH (26-32) pg MCHC (32-36) g/dL RDW (11.5-14.0) % Plt Count (150-450) x10^3/uL MPV (7.5-11.0) fL Sodium (137-145) mmol/L Potassium (3.5-5.1) mmol/L Chloride (98-107) mmol/L Carbon Dioxide (22-30) mmol/L Anion Gap (5-15) MEQ/L BUN (9-20) mg/dL Creatinine (0.66-1.25) mg/dL Estimated GFR ML/MIN Glucose (74-106) mg/dL POC Glucometer 88 127 H (74 to 106) mg/dL Hemoglobin A1c (4.5-6.0) % Calcium (8.4-10.2) mg/dL Total Bilirubin (0.2-1.3) mg/dL AST (17-59) U/L ALT (0-50) U/L Alkaline Phosphatase (38-126) U/L Serum Total Protein (6.3-8.2) g/dL Albumin (3.5-5.0) g/dL 25-OH Vitamin D Total (30-100) ng/mL Assessment/Plan (1) Hyponatremia Current Visit: Yes Status: Chronic Assessment & Plan: - Chronic- mild NA+ 132- trend 01/31: -Sodium levels continue to improve with fluid restriction, now at 133 Code(s): E87.1 - HYPO-OSMOLALITY AND HYPONATREMIA (2) Acute renal insufficiency Current Visit: Yes Status: Acute Assessment & Plan: - resolved - NS @ 50ml/hr - Continue BP meds that were held for NELDA 01/31: -at baseline Code(s): N28.9 - DISORDER OF KIDNEY AND URETER, UNSPECIFIED (3) Diarrhea Current Visit: Yes Status: Chronic Qualifiers: Diarrhea type: unspecified type Qualified Code(s): R19.7 - Diarrhea, unspecified Assessment & Plan: - Chronic -C-Diff negative - Start imodium - barrier cream to protect skin 01/30: -bicarb low secondary to diarrhea, this has improved but I will give two doses of bicarb at 650mg today due to the level being at 17, hopefully as the diarrhea improves, this will as well 01/31: -Diarrhea has improved, co2 is still low, will increase bicarb to 1300mg bid Code(s): R19.7 - DIARRHEA, UNSPECIFIED (4) Abnormal findings on diagnostic imaging of abdomen Current Visit: No Status: Acute Assessment & Plan: - He has f/u OP with oncology and is scheduled for a PET scan Op - As seen on CT Abd last visit: 01/15 IMPRESSION: Mild hepatomegaly, and fatty infiltration of the liver. No significant bowel wall thickening, or bowel dilatation. Clear operative bed. Multiple enlarged berta hepatis and gastrohepatic LNs, follow up is advised. No acute intra-abdominal abnormality. Right renal cyst [Bosniak type I]. Noncomplicated colonic diverticulosis mainly involves the sigmoid and descending colon without evidence of diverticulitis. The rest of the findings as detailed above. - may need to consider hospice. 01/31: -Family has decided to reschedule PET as they are unable to care for patient at home Code(s): R93.5 - ABN FINDINGS ON DX IMAGING OF ABD REGIONS, INC RETROPERITON (5) General weakness Current Visit: No Status: Acute Assessment & Plan: - Need PT and OT eval - Placement- discussed with case management. - Chest Xr 01/28 Impression: Continuing acute chest with chronic features. 01/30: -PT/OT eval and placement pending. 01/31: -Rehab precert pending #Transamitis -LFT's trending up, will obtain hep roa, monospot, fasting lipid -Noted berta hepatitis as well as hepatomegaly with fatty infiltration on CT from 01/15/23 VTE: Lovenox PPI: Protonix Next of Kin: Jillian Burt [phone] Code status: Full D/C plan: needs placement Code(s): E87.1 - HYPO-OSMOLALITY AND HYPONATREMIA (2) Acute renal insufficiency Current Visit: Yes Status: Acute Code(s): N28.9 - DISORDER OF KIDNEY AND URETER, UNSPECIFIED (3) Diarrhea Current Visit: Yes Status: Chronic Qualifiers: Diarrhea type: unspecified type Qualified Code(s): R19.7 - Diarrhea, unspecified Code(s): R19.7 - DIARRHEA, UNSPECIFIED (4) Abnormal findings on diagnostic imaging of abdomen Current Visit: No Status: Acute Code(s): R93.5 - ABN FINDINGS ON DX IMAGING OF ABD REGIONS, INC RETROPERITON (5) General weakness Current Visit: No Status: Acute Code(s): R53.1 - WEAKNESS (6) Transaminitis Current Visit: Yes Status: Acute Code(s): R74.01 - ELEVATION OF LEVELS OF LIVER TRANSAMINASE LEVELS
[2023-01-31] MEDS: IMODIUM 2 MG PO PRN (06:45)
[2023-01-31] MEDS: SYNTHROID 50 MCG PO SCH (06:45)
[2023-01-31 06:57] LABS: Absolute Neutrophil Ct (ANC) 3.75 x10^3/uL (1.4-6.9); BASOPHIL % 0.3 % (0.0-0.4); Basophil (Absolute #) 0.03 x10^3/uL (0-0.4); Eosinophil % 0.7 % (0.00-5.0); Eosinophil (Absolute #) 0.06 x10^3/uL (0-0.5); Hematocrit 34.2 % (42-50); Hemoglobin 11.2 g/dL (12.5-18.0); IMMATURE GRAN # 0.07 x10^3u/L (0.00-0.03); IMMATURE GRAN % 0.8 % (0.00-0.4); Lymphocyte (Absolute #) 4.19 x10^3/uL (1.0-4.6); Lymphocytes % 48.2 % (24.0-44.0); Mean Cell Volume 92.4 fL (78-100); Mean Corpuscular Hemoglobin 30.3 pg (26-32); Mean Corpuscular Hgb Concent. 32.7 g/dL (32-36); Mean Platelet Volume 9.6 fL (7.5-11.0); Monocytes % 6.9 % (0.0-12.0); Neutrophil % 43.1 % (36.0-66.0); Platelet Count 258 x10^3/uL (150-450); Red Cell Distribution Width 13.8 % (11.5-14.0); White Blood Count 8.7 x10^3/uL (4.0-10.5)
[2023-01-31 07:32] LABS: ALBUMIN 3.2 g/dL (3.5-5.0); ANION GAP 11.3 MEQ/L (5-15); BILIRUBIN,TOTAL 0.7 mg/dL (0.2-1.3); Calcium 7.7 mg/dL (8.4-10.2); Creatinine 1 1.22 mg/dL (0.66-1.25); EST GLOMERULAR FILTRATION RATE 58.5 ML/MIN; Potassium 4.2 mmol/L (3.5-5.1); Total Protein 7.5 g/dL (6.3-8.2)
[2023-01-31] MEDS: Ditropan 5 MG PO SCH (09:24)
[2023-01-31] MEDS: Avapro 150 MG PO SCH (09:24)
[2023-01-31] MEDS: ZOCOR 20MG PO SCH (09:24)
[2023-01-31] MEDS: ENOXAPARIN SODIUM SQ SCH (09:25)
[2023-01-31] MEDS: PROTONIX 40 MG IV IV SCH (09:25)
[2023-01-31] MEDS: SODIUM BICARBONATE PO SCH ×3 (09:25→21:59)
[2023-01-31] MEDS: Desyrel 150 MG PO SCH (21:58)
[2023-02-01 05:09] LABS: Hematocrit 31.3 % (42-50); Hemoglobin 10.3 g/dL (12.5-18.0); Mean Cell Volume 92.1 fL (78-100); Mean Corpuscular Hemoglobin 30.3 pg (26-32); Mean Corpuscular Hgb Concent. 32.9 g/dL (32-36); Mean Platelet Volume 9.6 fL (7.5-11.0); Platelet Count 232 x10^3/uL (150-450); Red Cell Distribution Width 13.7 % (11.5-14.0)
[2023-02-01 05:25] LABS: ALBUMIN 2.9 g/dL (3.5-5.0); ANION GAP 8.4 MEQ/L (5-15); BILIRUBIN,TOTAL 0.5 mg/dL (0.2-1.3); Calcium 7.4 mg/dL (8.4-10.2); Creatinine 1 1.26 mg/dL (0.66-1.25); EST GLOMERULAR FILTRATION RATE 56.2 ML/MIN; Total Protein 6.7 g/dL (6.3-8.2)
--- NOTE | 2023-02-01 05:34 | PCM.NOTE ---
Date and Time: 02/01/23 0533 Subjective Assessment: Mr. Hadley is an 82 year old male with PMHX of HTN, HLD, hypothyroid, and colon cancer s/p surgery then adjuvant chemotherapy, who presented to ED 01/28/23 with complaints of generalized weakness and admitted for hyponatremia, NELDA, and diarrhea (chronic). Patient was recently admitted from 01/15-01/19/23 for similar complaints of generalized weakness, diarrhea, and intermittent fevers. During this previous admission he was found to have hyponatremia due to diarrhea as well as poor osmolar intake/excessive fluid intake with an underlying component of SIADH. CT imaging also noted enlarged lymph nodes. Patient was transferred to [facility] for further evaluation of hyponatremia as well as ID for fevers of unknown cause, and heme/onc consult for periportal lymphadenopathy. Patient is following with Dr. Reyna (oncology) as OP. MRCP was obtained noting LN 2cm along the head of pancreas with no masses in the pancreas or liver. Further workup has been discussed with patient and plan for PET with possible bx/ERCP/EBUS pending results. There is concern for malignancy due to recent weight loss, hyponatremia, and previous h/o cancer. Non-malignant causes also discussed including infection/reactive processes. Patient is also following with Dr. Sanford (nephrology). He has maintained fluid restriction at home but his weakness and anorexia have continued. Patients has been afebrile since being home. He reports chronic diarrhea and has not been taking anything at home for this. C-dif testing was negative and Imodium started. NELDA has resolved since admission. Sodium is 131 and this is mild and chronic. C02 low most likely r/t chronic diarrhea. He will need a PT and OT eval. Family would like placement per nursing staff as they are unable to care for him at home. Discussed with case management. 01/30/23: Met with patient and son bedside. Endorses improvement of weakness today.Discussed plan for PT/OT eval and placement for rehab for which patient is agreeable. Patient states that diarrhea has improved some with imodium, bicarb still low today. Plan for PT/OT eval tomorrow for placement, otherwise patient stable for discharge when accepted to facility. Denies fever,cough, sob, cp, abdominal pain, GUZMAN, dizziness, N/V/D. 12/26: No overnight events noted. Patient is still weak but is able to ambulate with SBA/walker. Discussed with patient/family possible discharge with HHC and PT at home in order to complete PET/workup for oncology. Patient/ son have discussed options and would like to discharge to SNF for rehab as family is unable to provide care for patient at home with how weak he is. PET has been rescheduled per family. CO2 levels are low today, will increase sodium bicarb. Rehab precert pending. Transaminitis noted on labs this morning, increasing LFT's, reviewed CT from 01/15/23 noting hepatomegaly with fatty infiltration of the liver. Plan to obtain additional labs for further evaluation. 02/01: Met with patient bedside. Patient remains weak. Endorses poor appetite and cough with clear production. Patient is still having >5 diarrheal episodes daily. His co2 levels remain low. Will add Questran. SNF placement pending. - Review of Systems Constitutional: Weakness Eyes: No Symptoms Ears, Nose, & Throat: No Symptoms Respiratory: Cough Cardiac: No Symptoms Abdominal/Gastrointestinal: Diarrhea Genitourinary Symptoms: No Symptoms Musculoskeletal: No Symptoms Skin: No Symptoms Neurological: No Symptoms Psychological: No Symptoms Endocrine: No Symptoms Hematologic/Lymphatic: No Symptoms Immunological/Allergic: No Symptoms Objective Exam General Appearance: no apparent distress Neurologic Exam: alert, oriented x 3, cooperative Skin Exam: pale Wound Assessment: Skin/Wound Assessment Wound/Incision Assessment Start: 01/28/23 21:11 Text: Status: Active Freq: Q6H Protocol: Document 02/01/23 03:00 MP (Rec: 02/01/23 03:20 MP [id number]) Wound/Incision Assessment Medial Coccyx Wound Assessment Shift Assessment Wound Type Skin Tear Wound Stage Non Pressure Wound Comment barrier cream applied prn Wound Photo Photo Taken Yes Date: 01/28/23 Time: 20:30 Eye Exam: PERRL Ears, Nose, Throat Exam: normal ENT inspection Neck Exam: normal inspection Respiratory Exam: normal breath sounds, lungs clear Cardiovascular Exam: regular rate/rhythm, normal heart sounds Gastrointestinal/Abdomen Exam: soft, normal bowel sounds Extremity Exam: normal inspection Back Exam: normal inspection Male Genitalia Exam: deferred OBJECTIVE DATA Vital Signs: Vital Signs - 24 hr Temp Pulse Resp BP Pulse Ox 02/01/23 04:00 99.1 F 77 16 110/58 95 02/01/23 00:00 16 01/31/23 20:00 97.7 F 77 16 92/50 96 01/31/23 16:00 97.3 F 74 16 107/55 94 L 01/31/23 12:00 97.5 F 77 16 103/50 95 01/31/23 08:00 16 01/31/23 07:16 98.0 F 83 16 126/61 93 L Pain Assessment - Last Documented Pain Intensity 0 Intake and Output: Intake & Output 01/29/23 01/30/23 01/31/23 02/01/23 11:59 11:59 11:59 11:59 Intake Total 796 560 920 640 Output Total 525 100 Balance 271 460 920 640 Weight 75.4 kg Lab Results: Lab Results-Last 24 Hours 01/31/23 01/31/23 01/31/23 Range/Units 06:38 06:38 06:51 WBC 8.7 (4.0-10.5) x10^3/uL RBC 3.70 L (4.1-5.6) x10^6/uL Hgb 11.2 L (12.5-18.0) g/dL Hct 34.2 L (42-50) % MCV 92.4 (78-100) fL MCH 30.3 (26-32) pg MCHC 32.7 (32-36) g/dL RDW 13.8 (11.5-14.0) % Plt Count 258 (150-450) x10^3/uL MPV 9.6 (7.5-11.0) fL Gran % 43.1 (36.0-66.0) % Immature Gran % (Auto) 0.8 H (0.00-0.4) % Nucleat RBC Rel Count 0.0 (0.00-0.1) % Eos # (Auto) 0.06 (0-0.5) x10^3/uL Immature Gran # (Auto) 0.07 H (0.00-0.03) x10^3u/L Absolute Lymphs (auto) 4.19 (1.0-4.6) x10^3/uL Absolute Monos (auto) 0.60 (0.0-1.3) x10^3/uL Absolute Nucleated RBC 0.00 (0.00-0.01) x10^3u/L Lymphocytes % 48.2 H (24.0-44.0) % Monocytes % 6.9 (0.0-12.0) % Eosinophils % 0.7 (0.00-5.0) % Basophils % 0.3 (0.0-0.4) % Absolute Granulocytes 3.75 (1.4-6.9) x10^3/uL Basophils # 0.03 (0-0.4) x10^3/uL Sodium 133 L (137-145) mmol/L Potassium 4.2 (3.5-5.1) mmol/L Chloride 108 H (98-107) mmol/L Carbon Dioxide 17 L (22-30) mmol/L Anion Gap 11.3 (5-15) MEQ/L BUN 25 H (9-20) mg/dL Creatinine 1.22 (0.66-1.25) mg/dL Estimated GFR 58.5 ML/MIN Glucose 103 (74-106) mg/dL POC Glucometer 88 (74 to 106) mg/dL Calcium 7.7 L (8.4-10.2) mg/dL Total Bilirubin 0.70 (0.2-1.3) mg/dL AST 257 H (17-59) U/L ALT 116 H (0-50) U/L Alkaline Phosphatase 119 (38-126) U/L Serum Total Protein 7.5 (6.3-8.2) g/dL Albumin 3.2 L (3.5-5.0) g/dL Monoscreen (NEGATIVE) 01/31/23 01/31/23 01/31/23 Range/Units 11:43 15:40 16:15 WBC (4.0-10.5) x10^3/uL RBC (4.1-5.6) x10^6/uL Hgb (12.5-18.0) g/dL Hct (42-50) % MCV (78-100) fL MCH (26-32) pg MCHC (32-36) g/dL RDW (11.5-14.0) % Plt Count (150-450) x10^3/uL MPV (7.5-11.0) fL Gran % (36.0-66.0) % Immature Gran % (Auto) (0.00-0.4) % Nucleat RBC Rel Count (0.00-0.1) % Eos # (Auto) (0-0.5) x10^3/uL Immature Gran # (Auto) (0.00-0.03) x10^3u/L Absolute Lymphs (auto) (1.0-4.6) x10^3/uL Absolute Monos (auto) (0.0-1.3) x10^3/uL Absolute Nucleated RBC (0.00-0.01) x10^3u/L Lymphocytes % (24.0-44.0) % Monocytes % (0.0-12.0) % Eosinophils % (0.00-5.0) % Basophils % (0.0-0.4) % Absolute Granulocytes (1.4-6.9) x10^3/uL Basophils # (0-0.4) x10^3/uL Sodium (137-145) mmol/L Potassium (3.5-5.1) mmol/L Chloride (98-107) mmol/L Carbon Dioxide (22-30) mmol/L Anion Gap (5-15) MEQ/L BUN (9-20) mg/dL Creatinine (0.66-1.25) mg/dL Estimated GFR ML/MIN Glucose (74-106) mg/dL POC Glucometer 114 H 92 (74 to 106) mg/dL Calcium (8.4-10.2) mg/dL Total Bilirubin (0.2-1.3) mg/dL AST (17-59) U/L ALT (0-50) U/L Alkaline Phosphatase (38-126) U/L Serum Total Protein (6.3-8.2) g/dL Albumin (3.5-5.0) g/dL Monoscreen NEGATIVE (NEGATIVE) 01/31/23 02/01/23 02/01/23 Range/Units 22:28 03:13 04:50 WBC 5.0 (4.0-10.5) x10^3/uL RBC 3.40 L (4.1-5.6) x10^6/uL Hgb 10.3 L (12.5-18.0) g/dL Hct 31.3 L (42-50) % MCV 92.1 (78-100) fL MCH 30.3 (26-32) pg MCHC 32.9 (32-36) g/dL RDW 13.7 (11.5-14.0) % Plt Count 232 (150-450) x10^3/uL MPV 9.6 (7.5-11.0) fL Gran % (36.0-66.0) % Immature Gran % (Auto) (0.00-0.4) % Nucleat RBC Rel Count (0.00-0.1) % Eos # (Auto) (0-0.5) x10^3/uL Immature Gran # (Auto) (0.00-0.03) x10^3u/L Absolute Lymphs (auto) (1.0-4.6) x10^3/uL Absolute Monos (auto) (0.0-1.3) x10^3/uL Absolute Nucleated RBC (0.00-0.01) x10^3u/L Lymphocytes % (24.0-44.0) % Monocytes % (0.0-12.0) % Eosinophils % (0.00-5.0) % Basophils % (0.0-0.4) % Absolute Granulocytes (1.4-6.9) x10^3/uL Basophils # (0-0.4) x10^3/uL Sodium (137-145) mmol/L Potassium (3.5-5.1) mmol/L Chloride (98-107) mmol/L Carbon Dioxide (22-30) mmol/L Anion Gap (5-15) MEQ/L BUN (9-20) mg/dL Creatinine (0.66-1.25) mg/dL Estimated GFR ML/MIN Glucose (74-106) mg/dL POC Glucometer 89 100 (74 to 106) mg/dL Calcium (8.4-10.2) mg/dL Total Bilirubin (0.2-1.3) mg/dL AST (17-59) U/L ALT (0-50) U/L Alkaline Phosphatase (38-126) U/L Serum Total Protein (6.3-8.2) g/dL Albumin (3.5-5.0) g/dL Monoscreen (NEGATIVE) Multi-Disciplinary Progress Notes: Multi-Disciplinary Progress Notes 01/31/23 13:24 Case Management Note by Evy Hernández SPOKE WITH PATIENT AND SONS (KIKE AND KODY) APBOUT DISCHARGE PLANS. VOICED CONCERNS ABOUT GOING HOME EVEN WITH [facility]. THEY THINK REHAB WOULD BE A BETTER CHOICE FOR PATIENT CHOICE FOR PATIENT SAFETY. REFERRAL FAXED TO THE [facility]. Initialized on 01/31/23 13:24 - END OF NOTE Assessment/Plan (1) Hyponatremia Current Visit: Yes Status: Chronic Assessment & Plan: - Chronic- mild NA+ 132- trend 01/31: -Sodium levels continue to improve with fluid restriction, now at 133 02/01: -Stable, continue fluid restriction Code(s): E87.1 - HYPO-OSMOLALITY AND HYPONATREMIA (2) Acute renal insufficiency Current Visit: Yes Status: Acute Assessment & Plan: - resolved - NS @ 50ml/hr - Continue BP meds that were held for NELDA 01/31: -at baseline Code(s): N28.9 - DISORDER OF KIDNEY AND URETER, UNSPECIFIED (3) Diarrhea Current Visit: Yes Status: Chronic Qualifiers: Diarrhea type: unspecified type Qualified Code(s): R19.7 - Diarrhea, unspecified Assessment & Plan: - Chronic -C-Diff negative - Start imodium - barrier cream to protect skin 01/30: -bicarb low secondary to diarrhea, this has improved but I will give two doses of bicarb at 650mg today due to the level being at 17, hopefully as the diarrhea improves, this will as well 01/31: -Diarrhea has improved, co2 is still low, will increase bicarb to 1300mg bid 02/01: -add Questran Code(s): R19.7 - DIARRHEA, UNSPECIFIED (4) Abnormal findings on diagnostic imaging of abdomen Current Visit: No Status: Acute Assessment & Plan: - He has f/u OP with oncology and is scheduled for a PET scan Op - As seen on CT Abd last visit: 01/15 IMPRESSION: Mild hepatomegaly, and fatty infiltration of the liver. No significant bowel wall thickening, or bowel dilatation. Clear operative bed. Multiple enlarged berta hepatis and gastrohepatic LNs, follow up is advised. No acute intra-abdominal abnormality. Right renal cyst [Bosniak type I]. Noncomplicated colonic diverticulosis mainly involves the sigmoid and descending colon without evidence of diverticulitis. The rest of the findings as detailed above. - may need to consider hospice. 01/31: -Family has decided to reschedule PET as they are unable to care for patient at home Code(s): R93.5 - ABN FINDINGS ON DX IMAGING OF ABD REGIONS, INC RETROPERITON (5) General weakness Current Visit: No Status: Acute Assessment & Plan: - Need PT and OT eval - Placement- discussed with case management. - Chest Xr 01/28 Impression: Continuing acute chest with chronic features. 01/30: -PT/OT eval and placement pending. 01/31: -Rehab precert pending (6) Transaminitis Current Visit: Yes Status: Acute Code(s): R74.01 - ELEVATION OF LEVELS OF LIVER TRANSAMINASE LEVELS #Transamitis -LFT's trending up, will obtain hep roa, monospot, fasting lipid -Noted berta hepatitis as well as hepatomegaly with fatty infiltration on CT from 01/15/2302/01: -LFT's downtrending -monospot/lipid panel unremarkable, Hep roa pending VTE: Lovenox PPI: Protonix Next of Kin: Jillian Burt [phone] Code status: Full D/C plan: needs placement Code(s): E87.1 - HYPO-OSMOLALITY AND HYPONATREMIA Code(s): E87.1 - HYPO-OSMOLALITY AND HYPONATREMIA (2) Acute renal insufficiency Current Visit: Yes Status: Acute Code(s): N28.9 - DISORDER OF KIDNEY AND URETER, UNSPECIFIED (3) Diarrhea Current Visit: Yes Status: Chronic Qualifiers: Diarrhea type: unspecified type Qualified Code(s): R19.7 - Diarrhea, unspecified Code(s): R19.7 - DIARRHEA, UNSPECIFIED (4) Abnormal findings on diagnostic imaging of abdomen Current Visit: No Status: Acute Code(s): R93.5 - ABN FINDINGS ON DX IMAGING OF ABD REGIONS, INC RETROPERITON (5) General weakness Current Visit: No Status: Acute Code(s): R53.1 - WEAKNESS (6) Transaminitis Current Visit: Yes Status: Acute Code(s): R74.01 - ELEVATION OF LEVELS OF LIVER TRANSAMINASE LEVELS
[2023-02-01 05:37] LABS: Cholesterol 55 mg/dL (50-200); HDL CHOLESTEROL 16 mg/dL (40-60); LDL, DIRECT < 36 mg/dL (30-100); Risk Ratio 3.4; TRIGLYCERIDE 137 mg/dL (30-150)
[2023-02-01 05:49] LABS: ATYPICAL LYMPHS 11 %; Eosinophil 1 % (0.00-3.0); Lymphocytes 33 % (24-44); Monocyte 9 % (0.0-12.0); Neutrophils 46 % (36.-66.); Total Cells Counted 100
[2023-02-01 05:50] LABS: Platelet Estimate NORMAL (NORMAL)
[2023-02-01] MEDS ORDERED: Lomotil PO PRN (07:34)
[2023-02-01] MEDS: SYNTHROID 50 MCG PO SCH (08:35)
[2023-02-01] MEDS: IMODIUM 2 MG PO PRN ×3 (08:35→16:56)
[2023-02-01] MEDS: ENOXAPARIN SODIUM SQ SCH (11:03)
[2023-02-01] MEDS: SODIUM BICARBONATE PO SCH ×2 (11:04→21:21)
[2023-02-01] MEDS: Avapro 150 MG PO SCH (11:05)
[2023-02-01] MEDS: ZOCOR 20MG PO SCH (11:06)
[2023-02-01] MEDS: PROTONIX 40 MG IV IV SCH (11:06)
[2023-02-01] MEDS: Ditropan 5 MG PO SCH (11:06)
[2023-02-01] MEDS: QUESTRAN Light 4 GM Packet PO SCH ×2 (12:18→16:56)
[2023-02-01] MEDS: Desyrel 150 MG PO SCH (22:25)
--- NOTE | 2023-02-02 05:12 | PCM.NOTE ---
Date and Time: 02/02/23 0510 Subjective Assessment: Mr. Hadley is an 82 year old male with PMHX of HTN, HLD, hypothyroid, and colon cancer s/p surgery then adjuvant chemotherapy, who presented to ED 01/28/23 with complaints of generalized weakness and admitted for hyponatremia, NELDA, and diarrhea (chronic). Patient was recently admitted from 01/15-01/19/23 for similar complaints of generalized weakness, diarrhea, and intermittent fevers. During this previous admission he was found to have hyponatremia due to diarrhea as well as poor osmolar intake/excessive fluid intake with an underlying component of SIADH. CT imaging also noted enlarged lymph nodes. Patient was transferred to [facility] for further evaluation of hyponatremia as well as ID for fevers of unknown cause, and heme/onc consult for periportal lymphadenopathy. Patient is following with Dr. Reyna (oncology) as OP. MRCP was obtained noting LN 2cm along the head of pancreas with no masses in the pancreas or liver. Further workup has been discussed with patient and plan for PET with possible bx/ERCP/EBUS pending results. There is concern for malignancy due to recent weight loss, hyponatremia, and previous h/o cancer. Non-malignant causes also discussed including infection/reactive processes. Patient is also following with Dr. Sanford (nephrology). He has maintained fluid restriction at home but his weakness and anorexia have continued. Patients has been afebrile since being home. He reports chronic diarrhea and has not been taking anything at home for this. C-dif testing was negative and Imodium started. NELDA has resolved since admission. Sodium levels are stable . C02 low most likely r/t chronic diarrhea for which we have started questran. Family would like placement per nursing staff as they are unable to care for him at home. Patient has been accepted to [facility]. Patient is agreeable to plan and ready for discharge. Advised close follow up with PCP/Nephrology/Oncology for continued workup for periportal lymphadenopathy/hyponatremia. Objective Exam Wound Assessment: Skin/Wound Assessment Wound/Incision Assessment Start: 01/28/23 21:11 Text: Status: Active Freq: Q6H Protocol: Document 02/02/23 03:00 SM (Rec: 02/02/23 04:10 SM [id number]) Wound/Incision Assessment Medial Coccyx Wound Assessment Shift Assessment Wound Type Skin Tear Wound Stage Non Pressure Wound Wound Photo Photo Taken Yes Date: 01/28/23 Time: 20:30 OBJECTIVE DATA Vital Signs: Vital Signs - 24 hr Temp Pulse Resp BP Pulse Ox 02/02/23 04:00 97.2 F 69 16 127/58 94 L 02/02/23 00:00 97.6 F 72 16 118/57 95 02/01/23 20:00 16 02/01/23 19:59 97.3 F 69 16 105/53 97 02/01/23 16:00 96.8 F 81 16 121/58 96 02/01/23 12:00 98.4 F 74 16 119/58 96 02/01/23 08:00 97.3 F 80 16 112/59 93 L Pain Assessment - Last Documented Pain Intensity 0 Intake and Output: Intake & Output 01/30/23 01/31/23 02/01/23 02/02/23 11:59 11:59 11:59 11:59 Intake Total 560 920 640 300 Output Total 100 0 Balance 460 920 640 300 Lab Results: Lab Results-Last 24 Hours 01/28/23 02/01/23 02/01/23 Range/Units 23:53 04:50 04:50 WBC 5.0 (4.0-10.5) x10^3/uL RBC 3.40 L (4.1-5.6) x10^6/uL Hgb 10.3 L (12.5-18.0) g/dL Hct 31.3 L (42-50) % MCV 92.1 (78-100) fL MCH 30.3 (26-32) pg MCHC 32.9 (32-36) g/dL RDW 13.7 (11.5-14.0) % Plt Count 232 (150-450) x10^3/uL MPV 9.6 (7.5-11.0) fL Segmented Neutrophils 46 (36.-66.) % Lymphocytes (Manual) 33 (24-44) % Monocytes (Manual) 9 (0.0-12.0) % Eosinophils (Manual) 1 (0.00-3.0) % Atypical Lymphocytes 11 % Platelet Estimate NORMAL (NORMAL) RBC Morphology NORMAL Sodium 130 L (137-145) mmol/L Potassium 4.0 (3.5-5.1) mmol/L Chloride 108 H (98-107) mmol/L Carbon Dioxide 17 L (22-30) mmol/L Anion Gap 8.4 (5-15) MEQ/L BUN 29 H (9-20) mg/dL Creatinine 1.26 H (0.66-1.25) mg/dL Estimated GFR 56.2 ML/MIN Glucose 101 (74-106) mg/dL POC Glucometer (74 to 106) mg/dL Calcium 7.4 L (8.4-10.2) mg/dL Total Bilirubin 0.50 (0.2-1.3) mg/dL AST 163 H (17-59) U/L ALT 87 H (0-50) U/L Alkaline Phosphatase 111 (38-126) U/L Serum Total Protein 6.7 (6.3-8.2) g/dL Albumin 2.9 L (3.5-5.0) g/dL Triglycerides (30-150) mg/dL Cholesterol (50-200) mg/dL LDL Cholesterol (30-100) mg/dL HDL Cholesterol (40-60) mg/dL Heart Disease Risk Ratio Urine Osmolality 774 (.) mOsmol/kg 02/01/23 02/01/23 02/01/23 Range/Units 04:50 07:36 11:04 WBC (4.0-10.5) x10^3/uL RBC (4.1-5.6) x10^6/uL Hgb (12.5-18.0) g/dL Hct (42-50) % MCV (78-100) fL MCH (26-32) pg MCHC (32-36) g/dL RDW (11.5-14.0) % Plt Count (150-450) x10^3/uL MPV (7.5-11.0) fL Segmented Neutrophils (36.-66.) % Lymphocytes (Manual) (24-44) % Monocytes (Manual) (0.0-12.0) % Eosinophils (Manual) (0.00-3.0) % Atypical Lymphocytes % Platelet Estimate (NORMAL) RBC Morphology Sodium (137-145) mmol/L Potassium (3.5-5.1) mmol/L Chloride (98-107) mmol/L Carbon Dioxide (22-30) mmol/L Anion Gap (5-15) MEQ/L BUN (9-20) mg/dL Creatinine (0.66-1.25) mg/dL Estimated GFR ML/MIN Glucose (74-106) mg/dL POC Glucometer 100 104 (74 to 106) mg/dL Calcium (8.4-10.2) mg/dL Total Bilirubin (0.2-1.3) mg/dL AST (17-59) U/L ALT (0-50) U/L Alkaline Phosphatase (38-126) U/L Serum Total Protein (6.3-8.2) g/dL Albumin (3.5-5.0) g/dL Triglycerides 137 (30-150) mg/dL Cholesterol 55 (50-200) mg/dL LDL Cholesterol < 36 (30-100) mg/dL HDL Cholesterol 16 L (40-60) mg/dL Heart Disease Risk Ratio 3.4 Urine Osmolality (.) mOsmol/kg 02/01/23 02/01/23 Range/Units 16:21 20:45 WBC (4.0-10.5) x10^3/uL RBC (4.1-5.6) x10^6/uL Hgb (12.5-18.0) g/dL Hct (42-50) % MCV (78-100) fL MCH (26-32) pg MCHC (32-36) g/dL RDW (11.5-14.0) % Plt Count (150-450) x10^3/uL MPV (7.5-11.0) fL Segmented Neutrophils (36.-66.) % Lymphocytes (Manual) (24-44) % Monocytes (Manual) (0.0-12.0) % Eosinophils (Manual) (0.00-3.0) % Atypical Lymphocytes % Platelet Estimate (NORMAL) RBC Morphology Sodium (137-145) mmol/L Potassium (3.5-5.1) mmol/L Chloride (98-107) mmol/L Carbon Dioxide (22-30) mmol/L Anion Gap (5-15) MEQ/L BUN (9-20) mg/dL Creatinine (0.66-1.25) mg/dL Estimated GFR ML/MIN Glucose (74-106) mg/dL POC Glucometer 100 95 (74 to 106) mg/dL Calcium (8.4-10.2) mg/dL Total Bilirubin (0.2-1.3) mg/dL AST (17-59) U/L ALT (0-50) U/L Alkaline Phosphatase (38-126) U/L Serum Total Protein (6.3-8.2) g/dL Albumin (3.5-5.0) g/dL Triglycerides (30-150) mg/dL Cholesterol (50-200) mg/dL LDL Cholesterol (30-100) mg/dL HDL Cholesterol (40-60) mg/dL Heart Disease Risk Ratio Urine Osmolality (.) mOsmol/kg Multi-Disciplinary Progress Notes: Multi-Disciplinary Progress Notes 02/01/23 17:18 Physical Therapy Note by Miguelito(Priti#[id number])Viviana PT. REFUSED OP P.T. X 2 BEFORE FINALLY AGREEING TO WORK W/ P.T. THIS AFTERNOON. PT. REPORTS NO C/O PN, BUT DOES REPORT FATIGUE. PT. IN BED UPON P.T. ARRIVAL TO ROOM. SUPINE TO SIT PERFORMED W/ CGA-SBA. PT. NEEDED TO SIT ON SIDE OF BED X 1- 2' BEFORE STANDING UP. PT. PERFORMED SIT TO STAND W/ CGA. AMBULATED ~ 80-' W/ ROLLATOR AND CGA-SBA. SLIGHT DECREASED FOOT CLEARANCE BUT NO INSTABILITY NOTED. PT. NOTED HIS HIP MM. FELT WEAK WHILE WALKING. O2 SATS 98% ON RA. PT. AGREEABLE TO SIT IN RECLINERAFTER WALK. PERFOMRED SEATED LE EX'S X 10 REPS OF MARCHES, LAQS, ANKLE PUMPS. PT. ALSO PERFORMED STANDING CALF RAISES AND MINI SQUATS X 10 @ ROLLATOR W/ CGA. PT. SAT DOWN IN CHAIR AFTER THIS D/T FATIGUE. AGREEABLE TO STAY IN CHAIR AND OT WORKED W/ HIM AFTER P.T. WAITING FOR INS PA FOR REHAB STAY. WILL CONT. P.T. 5X/WK UNTIL D/C TO ADDRESS WEAKNESS, AND DECREASED ACTIVITY TOLERANCE . Initialized on 02/01/23 17:18 - END OF NOTE 02/01/23 15:53 Occupational Therapy Note by Anne Tan Treatment Note (15:25-15:34) Per nursing staff, patient presents with increased fatigue and requiring encouragement to complete out of bed activity. Upon OT arrival, patient recently walked with physical therapy and sitting up in the chair. Malik agreed to UE strengthening exercises this date. He completed 1 set x 10 reps of shoulder shrugs, scapular retraction, bilateral chest press (AROM), bicep curl (AROM), and resistive row with pulling self to edge of chair x 5 reps. He reports increased fatigue and declines to continue on. Initialized on 02/01/23 15:53 - END OF NOTE 02/01/23 15:04 Case Management Note by Beatriz Fuller PATIENT AND FAMILY CONTINUE TO BE IN AGREEABLE TO PLAN FOR SHORT TERM REHAB AT [facility]. UPDATED CLINICAL FAXED TO THEM WITH OT S/W GABY- PRECERT IS PENDING AT THIS TIME Initialized on 02/01/23 15:04 - END OF NOTE 02/01/23 11:52 Case Management Note by Beatriz FullerRR PAPERWORK COMPLETE AT THIS TIME- NO LEVEL II REQUIRED COPIES PLACED ON CHART AND FAXED TO [facility] Initialized on 02/01/23 11:52 - END OF NOTE 02/01/23 11:30 Case Management Note by Beatriz Fuller [facility] CALLED AND NEEDS UPDATED CLINICAL FOR PRECERT Initialized on 02/01/23 11:30 - END OF NOTE Assessment/Plan (1) Hyponatremia Current Visit: Yes Status: Chronic Assessment & Plan: Current Visit: Yes Status: Chronic Assessment & Plan: - Chronic- mild NA+ 132- trend 01/31: -Sodium levels continue to improve with fluid restriction, now at 133 02/01: -Stable, continue fluid restriction Code(s): E87.1 - HYPO-OSMOLALITY AND HYPONATREMIA (2) Acute renal insufficiency Current Visit: Yes Status: Acute Assessment & Plan: - resolved - NS @ 50ml/hr - Continue BP meds that were held for NELDA 01/31: -at baseline Code(s): N28.9 - DISORDER OF KIDNEY AND URETER, UNSPECIFIED (3) Diarrhea Current Visit: Yes Status: Chronic Qualifiers: Diarrhea type: unspecified type Qualified Code(s): R19.7 - Diarrhea, unspecified Assessment & Plan: - Chronic -C-Diff negative - Start imodium - barrier cream to protect skin 01/30: -bicarb low secondary to diarrhea, this has improved but I will give two doses of bicarb at 650mg today due to the level being at 17, hopefully as the diarrhea improves, this will as well 01/31: -Diarrhea has improved, co2 is still low, will increase bicarb to 1300mg bid 02/01: -add Questran Code(s): R19.7 - DIARRHEA, UNSPECIFIED (4) Abnormal findings on diagnostic imaging of abdomen Current Visit: No Status: Acute Assessment & Plan: - He has f/u OP with oncology and is scheduled for a PET scan Op - As seen on CT Abd last visit: 01/15 IMPRESSION: Mild hepatomegaly, and fatty infiltration of the liver. No significant bowel wall thickening, or bowel dilatation. Clear operative bed. Multiple enlarged berta hepatis and gastrohepatic LNs, follow up is advised. No acute intra-abdominal abnormality. Right renal cyst [Bosniak type I]. Noncomplicated colonic diverticulosis mainly involves the sigmoid and descending colon without evidence of diverticulitis. The rest of the findings as detailed above. - may need to consider hospice. 01/31: -Family has decided to reschedule PET as they are unable to care for patient at home Code(s): R93.5 - ABN FINDINGS ON DX IMAGING OF ABD REGIONS, INC RETROPERITON (5) General weakness Current Visit: No Status: Acute Assessment & Plan: - Need PT and OT eval - Placement- discussed with case management. - Chest Xr 01/28 Impression: Continuing acute chest with chronic features. 01/30: -PT/OT eval and placement pending. 01/31: -Rehab precert pending (6) Transaminitis Current Visit: Yes Status: Acute Code(s): R74.01 - ELEVATION OF LEVELS OF LIVER TRANSAMINASE LEVELS #Transamitis -LFT's trending up, will obtain hep roa, monospot, fasting lipid -Noted berta hepatitis as well as hepatomegaly with fatty infiltration on CT from 01/15/2302/01: -LFT's downtrending -monospot/lipid panel unremarkable, Hep roa pending Code(s): E87.1 - HYPO-OSMOLALITY AND HYPONATREMIA (2) Acute renal insufficiency Current Visit: Yes Status: Acute Code(s): N28.9 - DISORDER OF KIDNEY AND URETER, UNSPECIFIED (3) Diarrhea Current Visit: Yes Status: Chronic Qualifiers: Diarrhea type: unspecified type Qualified Code(s): R19.7 - Diarrhea, unspecified Code(s): R19.7 - DIARRHEA, UNSPECIFIED (4) Abnormal findings on diagnostic imaging of abdomen Current Visit: No Status: Acute Code(s): R93.5 - ABN FINDINGS ON DX IMAGING OF ABD REGIONS, INC RETROPERITON (5) General weakness Current Visit: No Status: Acute Code(s): R53.1 - WEAKNESS (6) Transaminitis Current Visit: Yes Status: Acute Code(s): R74.01 - ELEVATION OF LEVELS OF LIVER TRANSAMINASE LEVELS
[2023-02-02 05:15] LABS: Hematocrit 32.6 % (42-50); Hemoglobin 10.6 g/dL (12.5-18.0); Mean Cell Volume 92.6 fL (78-100); Mean Corpuscular Hemoglobin 30.1 pg (26-32); Mean Corpuscular Hgb Concent. 32.5 g/dL (32-36); Mean Platelet Volume 9.4 fL (7.5-11.0); Platelet Count 259 x10^3/uL (150-450); Red Blood Count 3.52 x10^6/uL (4.1-5.6); Red Cell Distribution Width 14.1 % (11.5-14.0); White Blood Count 5.4 x10^3/uL (4.0-10.5)
[2023-02-02 05:28] LABS: ALBUMIN 2.9 g/dL (3.5-5.0); ANION GAP 9.9 MEQ/L (5-15); BILIRUBIN,TOTAL 0.5 mg/dL (0.2-1.3); Calcium 7.6 mg/dL (8.4-10.2); Creatinine 1 1.12 mg/dL (0.66-1.25); EST GLOMERULAR FILTRATION RATE 64.8 ML/MIN; Potassium 4.4 mmol/L (3.5-5.1); Total Protein 6.8 g/dL (6.3-8.2)
[2023-02-02 06:01] LABS: ATYPICAL LYMPHS 12 %; Eosinophil 2 % (0.00-3.0); Lymphocytes 44 % (24-44); Monocyte 10 % (0.0-12.0); Neutrophils 32 % (36.-66.); Total Cells Counted 100
[2023-02-02 06:02] LABS: Platelet Estimate NORMAL (NORMAL)
[2023-02-02 07:14] VITALS: RESP 18
[2023-02-02] MEDS: SYNTHROID 50 MCG PO SCH (07:41)
[2023-02-02] MEDS: QUESTRAN Light 4 GM Packet PO SCH (07:41)
[2023-02-02 08:14] LABS: HBsAg Screen Negative (Negative); HCV Ab Non Reactive (Non Reactive); Hep A Ab, IgM Negative (Negative); Hep B Core Ab, IgM Negative (Negative)
[2023-02-02] MEDS: Ditropan 5 MG PO SCH (09:04)
[2023-02-02] MEDS: PROTONIX 40 MG IV IV SCH (09:04)
[2023-02-02] MEDS: ENOXAPARIN SODIUM SQ SCH (09:04)
[2023-02-02] MEDS: ZOCOR 20MG PO SCH (09:04)
[2023-02-02] MEDS: Avapro 150 MG PO SCH (09:04)
[2023-02-02] MEDS: SODIUM BICARBONATE PO SCH (09:05)
[2023-02-02 11:41] VITALS: BP 105/59; PULSE 67; TEMP 97.3; O2SAT 96
--- NOTE | 2023-02-02 11:53 | PCM.DS ---
Discharge Summary Date of Admission: 01/28/23 19:33 Date of Discharge: 02/02/23 Admitting Physician: ANTONIETTA RUIZ MD Primary Care Provider: SP CALDERÓN Allergies Allergies No Known Drug Allergies Allergy (Verified 01/28/23 17:40) Hospital Summary - Hospital Course Hospital Course: Mr. Hadley is an 82 year old male with PMHX of HTN, HLD, hypothyroid, and colon cancer s/p surgery then adjuvant chemotherapy, who presented to ED 01/28/23 with complaints of generalized weakness and admitted for hyponatremia, NELDA, and diarrhea (chronic). Patient was recently admitted from 01/15-01/19/23 for similar complaints of generalized weakness, diarrhea, and intermittent fevers. During this previous admission he was found to have hyponatremia due to diarrhea as well as poor osmolar intake/excessive fluid intake with an underlying component of SIADH. CT imaging also noted enlarged lymph nodes. Patient was transferred to [facility] for further evaluation of hyponatremia as well as ID for fevers of unknown cause, and heme/onc consult for periportal lymphadenopathy. Patient is following with Dr. Reyna (oncology) as OP. MRCP was obtained noting LN 2cm along the head of pancreas with no masses in the pancreas or liver. Further workup has been discussed with patient and plan for PET with possible bx/ERCP/EBUS pending results. There is concern for malignancy due to recent weight loss, hyponatremia, and previous h/o cancer. Non-malignant causes also discussed including infection/reactive processes. Patient is also following with Dr. Sanford (nephrology). He has maintained fluid restriction at home but his weakness and anorexia have continued. Patients has been afebrile since being home. He reports chronic diarrhea and has not been taking anything at home for this. C-dif testing was negative and Imodium started. NELDA has resolved since ad mission. Sodium levels are stable . C02 low most likely r/t chronic diarrhea for which we have started questran, he will continue on sodium bicarb at SNF with close monitoring and follow up. Family would like placement per nursing staff as they are unable to care for him at home. Patient has been accepted to [facility]. Patient is agreeable to plan and ready for discharge. Advised close follow up with PCP/Nephrology/Oncology for continued workup for periportal lymphadenopathy/hyponatremia. Latest Assessment & Plan (1) Hyponatremia Current Visit: Yes Status: Chronic Assessment & Plan: Current Visit: Yes Status: Chronic Assessment & Plan: - Chronic- mild NA+ 132- trend 01/31: -Sodium levels continue to improve with fluid restriction, now at 133 02/01: -Stable, continue fluid restriction Code(s): E87.1 - HYPO-OSMOLALITY AND HYPONATREMIA (2) Acute renal insufficiency Current Visit: Yes Status: Acute Assessment & Plan: - resolved - NS @ 50ml/hr - Continue BP meds that were held for NELDA 01/31: -at baseline Code(s): N28.9 - DISORDER OF KIDNEY AND URETER, UNSPECIFIED (3) Diarrhea Current Visit: Yes Status: Chronic Qualifiers: Diarrhea type: unspecified type Qualified Code(s): R19.7 - Diarrhea, unspecified Assessment & Plan: - Chronic -C-Diff negative - Start imodium - barrier cream to protect skin 01/30: -bicarb low secondary to diarrhea, this has improved but I will give two doses of bicarb at 650mg today due to the level being at 17, hopefully as the diarrhea improves, this will as well 01/31: -Diarrhea has improved, co2 is still low, will increase bicarb to 1300mg bid 02/01: -add Questran Code(s): R19.7 - DIARRHEA, UNSPECIFIED (4) Abnormal findings on diagnostic imaging of abdomen Current Visit: No Status: Acute Assessment & Plan: - He has f/u OP with oncology and is scheduled for a PET scan Op - As seen on CT Abd last visit: 01/15 IMPRESSION: Mild hepatomegaly, and fatty infiltration of the liver. No significant bowel wall thickening, or bowel dilatation. Clear operative bed. Multiple enlarged berta hepatis and gastrohepatic LNs, follow up is advised. No acute intra-abdominal abnormality. Right renal cyst [Bosniak type I]. Noncomplicated colonic diverticulosis mainly involves the sigmoid and descending colon without evidence of diverticulitis. The rest of the findings as detailed above. - may need to consider hospice. 01/31: -Family has decided to reschedule PET as they are unable to care for patient at home Code(s): R93.5 - ABN FINDINGS ON DX IMAGING OF ABD REGIONS, INC RETROPERITON (5) General weakness Current Visit: No Status: Acute Assessment & Plan: - Need PT and OT eval - Placement- discussed with case management. - Chest Xr 01/28 Impression: Continuing acute chest with chronic features. 01/30: -PT/OT eval and placement pending. 01/31: -Rehab precert pending (6) Transaminitis Current Visit: Yes Status: Acute Code(s): R74.01 - ELEVATION OF LEVELS OF LIVER TRANSAMINASE LEVELS #Transamitis -LFT's trending up, will obtain hep roa, monospot, fasting lipid -Noted berta hepatitis as well as hepatomegaly with fatty infiltration on CT from 01/15/2302/01: -LFT's downtrending -monospot/lipid panel unremarkable, Hep roa pending I spent 35 minutes [id number] with the patient on the day of discharge performing discharge exam, discussing hospital stay and discharge instructions with patient and caregivers, preparation of discharge records, prescriptions & referral forms and addressing any questions/concerns the patient had as documented above. - Vitals & Intake/Output Vital Signs: Vital Signs Temperature 97.3 F 02/02/23 11:41 Pulse Rate 67 02/02/23 11:41 Respiratory Rate 18 02/02/23 11:41 Blood Pressure 105/59 02/02/23 11:41 O2 Sat by Pulse Oximetry 96 02/02/23 11:41 Intake & Output: Intake & Output 01/30/23 01/31/23 02/01/23 02/02/23 11:59 11:59 11:59 11:59 Intake Total 560 920 640 440 Output Total 100 0 Balance 460 920 640 440 - Lab Result Diagrams: 02/02/23 05:05 02/02/23 05:05 Lab Results-Last 24 Hrs: Lab Results-Last 24 Hours 01/31/23 02/01/23 02/01/23 Range/Units 15:40 16:21 20:45 WBC (4.0-10.5) x10^3/uL RBC (4.1-5.6) x10^6/uL Hgb (12.5-18.0) g/dL Hct (42-50) % MCV (78-100) fL MCH (26-32) pg MCHC (32-36) g/dL RDW (11.5-14.0) % Plt Count (150-450) x10^3/uL MPV (7.5-11.0) fL Segmented Neutrophils (36.-66.) % Lymphocytes (Manual) (24-44) % Monocytes (Manual) (0.0-12.0) % Eosinophils (Manual) (0.00-3.0) % Atypical Lymphocytes % Platelet Estimate (NORMAL) RBC Morphology Sodium (137-145) mmol/L Potassium (3.5-5.1) mmol/L Chloride (98-107) mmol/L Carbon Dioxide (22-30) mmol/L Anion Gap (5-15) MEQ/L BUN (9-20) mg/dL Creatinine (0.66-1.25) mg/dL Estimated GFR ML/MIN Glucose (74-106) mg/dL POC Glucometer 100 95 (74 to 106) mg/dL Calcium (8.4-10.2) mg/dL Total Bilirubin (0.2-1.3) mg/dL AST (17-59) U/L ALT (0-50) U/L Alkaline Phosphatase (38-126) U/L Serum Total Protein (6.3-8.2) g/dL Albumin (3.5-5.0) g/dL Hepatitis A IgM Ab Negative (Negative) Hep Bs Antigen Negative (Negative) Hep B Core IgM Ab Negative (Negative) Hep C Ab Signal/Cutoff Non Reactive (Non Reactive) Hepatitis C Interp Comment (.) 02/02/23 02/02/23 02/02/23 Range/Units 05:05 05:05 07:01 WBC 5.4 (4.0-10.5) x10^3/uL RBC 3.52 L (4.1-5.6) x10^6/uL Hgb 10.6 L (12.5-18.0) g/dL Hct 32.6 L (42-50) % MCV 92.6 (78-100) fL MCH 30.1 (26-32) pg MCHC 32.5 (32-36) g/dL RDW 14.1 H (11.5-14.0) % Plt Count 259 (150-450) x10^3/uL MPV 9.4 (7.5-11.0) fL Segmented Neutrophils 32 L (36.-66.) % Lymphocytes (Manual) 44 (24-44) % Monocytes (Manual) 10 (0.0-12.0) % Eosinophils (Manual) 2 (0.00-3.0) % Atypical Lymphocytes 12 % Platelet Estimate NORMAL (NORMAL) RBC Morphology NORMAL Sodium 130 L (137-145) mmol/L Potassium 4.4 (3.5-5.1) mmol/L Chloride 107 (98-107) mmol/L Carbon Dioxide 18 L (22-30) mmol/L Anion Gap 9.9 (5-15) MEQ/L BUN 28 H (9-20) mg/dL Creatinine 1.12 (0.66-1.25) mg/dL Estimated GFR 64.8 ML/MIN Glucose 101 (74-106) mg/dL POC Glucometer 87 (74 to 106) mg/dL Calcium 7.6 L (8.4-10.2) mg/dL Total Bilirubin 0.50 (0.2-1.3) mg/dL AST 125 H (17-59) U/L ALT 65 H (0-50) U/L Alkaline Phosphatase 97 (38-126) U/L Serum Total Protein 6.8 (6.3-8.2) g/dL Albumin 2.9 L (3.5-5.0) g/dL Hepatitis A IgM Ab (Negative) Hep Bs Antigen (Negative) Hep B Core IgM Ab (Negative) Hep C Ab Signal/Cutoff (Non Reactive) Hepatitis C Interp (.) 02/02/23 Range/Units 11:25 WBC (4.0-10.5) x10^3/uL RBC (4.1-5.6) x10^6/uL Hgb (12.5-18.0) g/dL Hct (42-50) % MCV (78-100) fL MCH (26-32) pg MCHC (32-36) g/dL RDW (11.5-14.0) % Plt Count (150-450) x10^3/uL MPV (7.5-11.0) fL Segmented Neutrophils (36.-66.) % Lymphocytes (Manual) (24-44) % Monocytes (Manual) (0.0-12.0) % Eosinophils (Manual) (0.00-3.0) % Atypical Lymphocytes % Platelet Estimate (NORMAL) RBC Morphology Sodium (137-145) mmol/L Potassium (3.5-5.1) mmol/L Chloride (98-107) mmol/L Carbon Dioxide (22-30) mmol/L Anion Gap (5-15) MEQ/L BUN (9-20) mg/dL Creatinine (0.66-1.25) mg/dL Estimated GFR ML/MIN Glucose (74-106) mg/dL POC Glucometer 100 (74 to 106) mg/dL Calcium (8.4-10.2) mg/dL Total Bilirubin (0.2-1.3) mg/dL AST (17-59) U/L ALT (0-50) U/L Alkaline Phosphatase (38-126) U/L Serum Total Protein (6.3-8.2) g/dL Albumin (3.5-5.0) g/dL Hepatitis A IgM Ab (Negative) Hep Bs Antigen (Negative) Hep B Core IgM Ab (Negative) Hep C Ab Signal/Cutoff (Non Reactive) Hepatitis C Interp (.) Micro Results-Entire Visit: Microbiology 01/28/23 23:53 Urine Culture - Final Urine, Void NO GROWTH Accuchecks Date 02/02/23 Date 02/02/23 Date 02/01/23 Date 02/01/23 Time 11:40 Time 07:13 - Procedures and Test Procedures and Tests throughout Hospitalization: Therapy Orders & Screens 01/29/23 09:43 PT Eval & Treat (MD Order) ONCE Reason for Eval:: weakness and placement Diagnosis: weakness, hypontremia, renal insufficiency OT Eval and Treat (MD Order) ONCE Comment: Physician Instructions: Reason For Exam: Diagnosis: weakness, hypontremia, renal insufficiency Discharge Exam General Appearance: no apparent distress Neurologic Exam: alert, oriented x 3, cooperative Eye Exam: PERRL Ears, Nose, Throat Exam: normal ENT inspection Neck Exam: normal inspection Respiratory Exam: normal breath sounds, lungs clear Cardiovascular Exam: regular rate/rhythm, normal heart sounds Gastrointestinal/Abdomen Exam: soft, normal bowel sounds Male Genitalia Exam: deferred Rectal Exam: deferred Back Exam: normal inspection Extremity Exam: normal inspection Skin Exam: normal color Wound Assessment: Skin/Wound Assessment Wound/Incision Assessment Start: 01/28/23 21:11 Text: Status: Active Freq: Q6H Protocol: Document 02/02/23 09:00 CHUCKIE (Rec: 02/02/23 10:26 CHUCKIE [id number]) Wound/Incision Assessment Medial Coccyx Wound Assessment Shift Assessment Wound Stage Non Pressure Wound Wound Photo Photo Taken Yes Date: 01/28/23 Time: 20:30 Final Diagnosis/Problem List - Final Discharge Diagnosis/Problem (1) Hyponatremia Current Visit: Yes Status: Chronic Code(s): E87.1 - HYPO-OSMOLALITY AND HYPONATREMIA (2) Acute renal insufficiency Current Visit: Yes Status: Acute Code(s): N28.9 - DISORDER OF KIDNEY AND URETER, UNSPECIFIED (3) Diarrhea Current Visit: Yes Status: Chronic Code(s): R19.7 - DIARRHEA, UNSPECIFIED (4) Abnormal findings on diagnostic imaging of abdomen Current Visit: No Status: Acute Code(s): R93.5 - ABN FINDINGS ON DX IMAGING OF ABD REGIONS, INC RETROPERITON (5) General weakness Current Visit: No Status: Acute Code(s): R53.1 - WEAKNESS (6) Transaminitis Current Visit: Yes Status: Acute Code(s): R74.01 - ELEVATION OF LEVELS OF LIVER TRANSAMINASE LEVELS - Discharge Disposition: DC TO ANY "OTHER" HALFWAY Condition: Fair Prescriptions: New Loperamide HCl 2 mg [Imodium 2 mg] 2 mg PO PRN PRN cap PRN Reason: Diarrhea Cholestyramine Light 4 gm [QUESTRAN Light 4 GM Packet] 4 gm PO BIDWM pkt Sodium Bicarbonate 1,300 mg PO BID tablet Continue Levothyroxine Sodium 50 Mcg [Synthroid 50 Mcg] 50 mcg PO 0700 Irbesartan 300 mg PO DAILY Trazodone HCl 50 mg [Desyrel 50 mg] 75 mg PO HS Atorvastatin Calcium 40 mg PO DAILY oxyBUTYnin chloride [Oxybutynin Chloride] 5 mg PO DAILY Discontinued Amlodipine Besylate 5 mg [Norvasc 5 mg] 5 mg PO DAILY Instructions: Generalized Weakness (DC), Hyponatremia (DC) Additional Instructions: HALFWAY ORDERS: ADMIT TO [facility] DIET PT/OT EVAL AND TREAT SEE ATTACHED MED LIST Follow up with: SP CALDERÓN MD [Primary Care Provider] - 02/09/23 10:45 am ()
== END 2023-02-02 12:55 ==
LOC: ED 17:01 → MED SURG 19:33
PROVIDERS: ADMIT Internal Medicine Critical Care Medicine; ATTEND Internal Medicine Critical Care Medicine
DX: E87.1 Hypo-osmolality and hyponatremia (principal); N28.9 Disorder of kidney and ureter, unspecified; R19.7 Diarrhea, unspecified; R93.5 Abnormal findings on diagnostic imaging of other abdominal regions, including retroperitoneum; R53.1 Weakness; R74.01 Elevation of levels of liver transaminase levels; N17.9 Acute kidney failure, unspecified; I10 Essential (primary) hypertension; E78.5 Hyperlipidemia, unspecified; E03.9 Hypothyroidism, unspecified; S31.010A Laceration without foreign body of lower back and pelvis without penetration into retroperitoneum, initial encounter; Z79.899 Other long term (current) drug therapy; Z20.828 Contact with and (suspected) exposure to other viral communicable diseases; Z85.038 Personal history of other malignant neoplasm of large intestine
CPT/HCPCS: 36415; 71045; 80048; 80053; 80061; 80074; 81001; 82150; 82306; 82947; 83036; 83605; 83690; 83721; 83935; 84295; 84300; 84484; 85025; 85027; 86308; 87086; 87493; 93268; 94762; 96360; 99285; 99291; J1650; Q3014; 97110-GP; A9270-GY; G0378